=== PATIENT | female | born 1945 | race Asian ===

== ENCOUNTER → 2019-06-09 | Outpatient (REF) | payer OTHER ==
[2019-06-11 13:15] LABS: PERCENT SATURATION 9.7 % (13.2-45.0)
== END ==
LOC: M LAB REF 12:29
PROVIDERS: ATTEND Internal Medicine
DX: D64.9 Anemia, unspecified (principal)

== ENCOUNTER → 2019-06-10 | Outpatient (REF) | payer OTHER ==
[2019-06-14 00:07] LABS: ANTINUCLEAR ANTIBODIES DIRECT Negative (Negative); CYCLIC CITRULLINATED PEPTIDE 6 units (0-19)
== END ==
LOC: M LAB REF 16:53
PROVIDERS: ATTEND Internal Medicine
DX: M25.50 Pain in unspecified joint (principal)

== ENCOUNTER → 2019-09-20 | Outpatient (REF) | payer MEDICARE ==
[2019-09-20 14:35] LABS: PERCENT SATURATION 17.2 % (13.2-45.0)
== END ==
LOC: M LAB REF 12:35
PROVIDERS: ATTEND Internal Medicine
DX: D50.9 Iron deficiency anemia, unspecified (principal)

== ENCOUNTER → 2020-02-17 | Outpatient (REF) | payer MEDICARE ==
[2020-02-17 13:08] LABS: PERCENT SATURATION 23.3 % (13.2-45.0)
== END ==
LOC: M LAB REF 12:14
PROVIDERS: ATTEND Internal Medicine
DX: D50.9 Iron deficiency anemia, unspecified (principal)

== ENCOUNTER → 2020-08-03 | Outpatient (REF) | payer MEDICARE ==
[2020-08-03 13:42] LABS: PERCENT SATURATION 25.8 % (13.2-45.0)
== END ==
LOC: M LAB REF 12:34
PROVIDERS: ATTEND Internal Medicine
DX: D50.9 Iron deficiency anemia, unspecified (principal)

== ENCOUNTER 2021-02-08 10:21 | Inpatient (IN) | payer MEDICARE ==
[~2021-02-08] VITALS: Ht 149.9 cm; Wt 43.7 kg
[2021-02-08] MEDS ORDERED: AMLO1TAB24 PO (10:34)
[2021-02-08 10:51] LABS: HEMATOCRIT 25.4 % (36.0-47.0); HEMOGLOBIN 8.3 g/dl (12.0-15.5); MEAN CORPUSCULAR HEMOGLOBIN 34.2 pg (27.0-33.0); MEAN CORPUSCULAR HGB CONC 32.7 g/dl (32.0-36.5); MEAN CORPUSCULAR VOLUME 104.5 fl (80.0-96.0); PLATELET COUNT, AUTOMATED 193 10^3/uL (150-450); RED BLOOD COUNT 2.43 10^6/uL (4.00-5.40); WHITE BLOOD COUNT 2.4 10^3/uL (4.0-10.0)
--- NOTE | 2021-02-08 11:03 | REPVR ---
PROCEDURE INFORMATION: Exam: CT Head Without Contrast Exam date and time: 02/08/2021 10:38 AM Age: 75 years old Clinical indication: Weakness, facial; Additional info: CVA - nursing interventions must not delay CT TECHNIQUE: Imaging protocol: Computed tomography of the head without contrast. Radiation optimization: All CT scans at this facility use at least one of these dose optimization techniques: automated exposure control; mA and/or kV adjustment per patient size (includes targeted exams where dose is matched to clinical indication); or iterative reconstruction. Other technique: STROKE PROTOCOL was implemented. COMPARISON: No relevant prior studies available. FINDINGS: Brain: There is no acute intracranial hemorrhage or mass effect. Mild diffuse volume loss is within the range of normal for patient age. There are small vessel ischemic changes within the periventricular and subcortical white matter, but the normal wood/white matter delineation is maintained. Cerebral ventricles: No ventriculomegaly. Bones/joints: Unremarkable. No acute fracture. Paranasal sinuses: Visualized sinuses are unremarkable. No fluid levels. Mastoid air cells: Visualized mastoid air cells are well aerated. Soft tissues: Unremarkable. IMPRESSION: No acute intracranial hemorrhage or edema. ASSESSMENT: ASPECTS ([facility] Stroke Program Early CT Score) is 10. Electronically signed by: Wendie Adams On 02/08/2021 11:02:45 AM
[2021-02-08 11:04] LABS: INR 1.04; PROTHROMBIN TIME 13.8 SECONDS (12.5-14.3)
[2021-02-08 11:05] LABS: PARTIAL THROMBOPLASTIN TIME 26.1 SECONDS (24.2-38.5)
--- NOTE | 2021-02-08 11:07 | REPVR ---
PROCEDURE INFORMATION: Exam: CT Cervical Spine Without Contrast Exam date and time: 02/08/2021 10:38 AM Age: 75 years old Clinical indication: Weakness; Additional info: CVA - nursing interventions must not delay CT TECHNIQUE: Imaging protocol: Computed tomography images of the cervical spine without contrast. Radiation optimization: All CT scans at this facility use at least one of these dose optimization techniques: automated exposure control; mA and/or kV adjustment per patient size (includes targeted exams where dose is matched to clinical indication); or iterative reconstruction. COMPARISON: No relevant prior studies available. FINDINGS: Bones/joints: There is straightening of the normal cervical lordosis. No acute fracture. Normal alignment. Discs/Spinal canal/Neural foramina: No significant disc protrusion. No severe spinal canal stenosis. No significant neural foraminal narrowing. Lungs: Lung apices are normal. Soft tissues: The prevertebral soft tissues are within normal limits. There is bulky cervical lymphadenopathy, most pronounced inferiorly. This extends into the supraclavicular chains. The right thyroid lobe is surgically absent. The left thyroid lobe is heterogeneous with a dominant 9 mm hypodensity. IMPRESSION: 1. No acute fracture. 2. Bulky cervical and supraclavicular lymphadenopathy, worrisome for neoplasm such as lymphoma. Electronically signed by: Wendie Adams On 02/08/2021 11:07:44 AM
[2021-02-08 11:13] LABS: ATYPICAL LYMPH 11 % (0-5); BASOPHILS 1 % (0-1); LYMPHOCYTES 18 % (16-44); MONOCYTES 15 % (0-5); MYELOCYTES 1 % (0-0); NEUTROPHILS 47 % (28-66); PLATELET ESTIMATE NORMAL (NORMAL)
[2021-02-08 11:14] LABS: HYPOCHROMASIA 1+; TOXIC VACUOLATION 1+
--- NOTE | 2021-02-08 11:19 | REP ---
INDICATION: CVA. COMPARISON: None. TECHNIQUE: Portable FINDINGS: The technique utilized in obtaining the radiograph has magnified the cardiac silhouette and accentuated the interstitial markings. There is mild cardiomegaly accentuated by technique. There is a subtle patchy opacity in the left lower lobe. The pleural angles are sharp. The lung dinh are otherwise within normal limits for the technique utilized in obtaining the radiograph. IMPRESSION: Minimal left lower lobe opacity. PA and lateral views of the chest recommended. <Electronically signed by Paddy Young > 02/08/21 1112
[2021-02-08 11:20] LABS: BLOOD UREA NITROGEN 47 MG/DL (7-18); CALCIUM LEVEL 13.8 MG/DL (8.8-10.2); CARBON DIOXIDE LEVEL 29 MEQ/L (21-32); CHLORIDE LEVEL 102 MEQ/L (98-107); CK-MB VALUE MASS 1.3 NG/ML (<3.6); CPK CREATINE PHOSPHOKINASE 156 U/L (26-192); CREATININE FOR GFR 1.86 MG/DL (0.55-1.30); GLUCOSE, FASTING 82 MG/DL (70-100); MB/CK RELATIVE INDEX 0.83 (< OR =4); POTASSIUM SERUM 4.1 MEQ/L (3.5-5.1); SODIUM LEVEL 137 MEQ/L (136-145); TROPONIN I < 0.02 NG/ML (< 0.10)
[2021-02-08] MEDS ORDERED: NS 500 ML IV ONE ×2 (11:40→13:40)
[2021-02-08 12:01] LABS: MONO REFLEX EBV COMP NEGATIVE (NEGATIVE)
[2021-02-08 12:10] LABS: ALBUMIN 2.7 GM/DL (3.2-5.2); ALT/SGPT 19 U/L (12-78); BILIRUBIN,DIRECT 0.1 MG/DL (0.0-0.2); BILIRUBIN,TOTAL 0.6 MG/DL (0.2-1.0); PTH INTACT < 6.3 PG/ML (18.5-88.0); TOTAL PROTEIN 9.5 GM/DL (6.4-8.2)
[2021-02-08] MEDS ORDERED: CALCITONIN SALMON (MIACALCIN) 400INTERNATIONAL UNITS/2ML INJ (J0630) SQ ONE (14:20)
[2021-02-08] MEDS ORDERED: D31000TA2 PO (14:27)
[2021-02-08] MEDS ORDERED: IBAN150T6 PO (14:27)
[2021-02-08] MEDS ORDERED: FERR324T21 PO (14:28)
[2021-02-08 16:51] LABS: FERRITIN 1012 NG/ML (8-252); IRON (FE) 69 UG/DL (50-170); LDH LACTATE DEHYDROGENASE 513 U/L (84-246); TOTAL IRON BINDING CAPACITY 238 UG/DL (250-450); VITAMIN B12 LEVEL 1123 PG/ML (247-911)
[2021-02-08 16:56] LABS: HEMATOCRIT 25.4 % (36.0-47.0)
--- NOTE | 2021-02-08 18:13 | HPEPDOC ---
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 To preface, patient lives alone and ambulate without assistance at baseline. With no symptoms prior, patient has had 3-4 episodes of weakness that led to slow falls since Friday (02/05). Patient described episodes as standing up and taking a few steps, then feeling onset of weakness, prompting her to reach f or steady objects for support, then slowly lowering herself down to the floor. It would then take her 30 minutes before she can gather enough strength to get back up. This morning, patient was getting ready to visit her primary care and developed another episode of weakness, she was subsequently found down on the floor by her friend (who was driving her to the appointment), prompting friend to call EMS and transported patient to ED for evaluation. Patient denied dizziness, lightheadedness and LOC during her episodes, but reported hitting the R posterior side of her head from the episode this morning. She also denied recent fever, chills, CP, palpitation, SOB, CHUNG, N/V/D, abd pain, urinary sym ptoms, weight-loss, but noted decreased appetite (only able to finish 1/3 of her normal meal) and cough since Friday. Per medical records, patient has had a workup for iron deficiency anemia with PCP in 2018. She refused colonoscopy but had negative FOBT and FIT. She was started on iron supplement and her iron and Hgb recovered. Per patient, she was last seen by her PCP (Dr. Nielson) around 07/2020 and was told her results were good. However, she reported noticing nonpainful nodules around her left supraclavicular area since 01/18. She was seen by urgent care and was told to return to her PCP for follow up visit today (02/08). In the ED, patient was found hypercalcemic (13.8) with low PTH (<6.3), anemic (H&H 8.3 & 25.4) and leukopenic (2.4) with elevated atypical lymphocyte (11). CXR showed minimal LLL opacity. CT head was unremarkable but CT cervical spine showed bulky cervical and supraclavicular lymphadenopathy, worrisome for neoplasm such as lymphoma. Patient was treated with 2x 500mL IV bolus and 1 dose of calcitonin in the ED. PAST MEDICAL HISTORY: 1. Basal cell carcinoma of L nostril base s/p excision 08/2015 2. HTN 3. Osteoporosis 4. HLD 5. Iron deficiency anemia PAST SURGICAL HISTORY: 1. Partial Rt thyroidectomy 2. Basal cell carcinoma excision of L nostril base 08/2015 SOCIAL HISTORY: Children: 2 daughter and 1 son Tobacco use: Never smoker ETOH: Denied Illicit drug use: Denied IV drug use: Denied FAMILY HISTORY: Father: at over 70 years of age. Hx HTN Mother: at age 70 from intracranial hemorrhage from a fall. Siblings: 4 brothers all with hx of HTN. 1 brother had DM in addition. Children: Healthy ALLERGIES: Please see below. REVIEW OF SYSTEMS: CONSTITUTIONAL: Denies chills, fever, unexpected weight change, but noted weakness and loss of appetite (can only finish 1/3 of her usual meal) HEENT: Denies headaches, dizziness, vision changes, hearing changes or throat pain. CARDIOVASCULAR: Denies chest pain, palpitations, dyspnea on exertion, edema RESPIRATORY: Denies wheezing, dyspnea, hemoptysis, but noted cough with whitish sputum GASTROINTESTINAL: Denies nausea, vomiting, abdominal pain, diarrhea, constipation, hematochezia, but noted black stool due to iron supplement GENITAOURINARY: Denies dysuria, hematuria, urinary frequency, incontinence or retention. SKIN: Denies skin changes, rash, lesions, jaundice, bruising, but noted L supraclavicular lymph node enlargement MUSCULOSKELETAL: Denies muscle or joint pain but noted weakness. NEUROLOGICAL: Denies focal weakness, numbness, tingling, change in Speech. Noted drooping of R eyelid since . HEMATOLOGICAL: Denies bruising, excessive bleeding, petechiae HOME MEDICATIONS: Please see below. PHYSICAL EXAMINATION: VITAL SIGNS: See below GENERAL APPEARANCE: Revealed 75 y/o F, cachectic, alert & oriented x3, no acute distress. HEENT Exam: Normocephalic and atraumatic, PERRL, pale conjunctiva, drooping of R eyelid noted, EOMI, without sclera icteric, mucous membr. moist/pink, pharynx normal, nares patent. NECK: Supple without JVD, thyromegaly. Nontender lymph nodes noted in B/L posterior neck triangles proximal to posterior cervical chain LUNGS: Crackles noted in LLL. Otherwise diminished breath sounds but clear to auscultation bilaterally without rales, wheezing, and crackles. CARDIOVASCULAR: Regular rate and rhythm, normal S1 & S2 without gallops, murmurs, rubs ABDOMEN: Soft, non-tender, non-distended with normal bowel sounds. No masses or ecchymosis or hepatosplenomegaly. EXTREMITIES: 2+ pulses in all extremities. No clubbing, cyanosis, edema, tenderness SKIN: Normal turgor and temperature. No rash, lesion MUSCULOSKELETAL: Strength +5/5 in all extremities without tenderness. NEUROLOGICAL: Normal speech with intact sensation, cranial nerves III-XII normal. No signs of gross focal neurological deficit. PSYCHIATRIC: Normal mood and affect LABORATORY DATA: See below. IMAGIN. CT spine, cervical w/o contrast done on 02/08 reported as: IMPRESSION: 1. No acute fracture. 2. Bulky cervical and supraclavicular lymphadenopathy, worrisome for neoplasm such as lymphoma. 2. Portable CXR done on 02/08 reported as: IMPRESSION: Minimal left lower lobe opacity. PA and lateral views of the chest recommended 3. CT head without contrast IMPRESSION: No acute intracranial hemorrhage or edema. MICROBIOLOGY: Please see below. ASSESSMENT: Patient is a 75 y/o F with hx of basal cell carcinoma of L nostril base (s/p excision 08/2015), HTN, HLD, iron deficiency anemia and osteoporosis, presenting to the ED after she was found down by her friend. She has had 3-4 episodes of weakness that led her to falling since Monday 02/05 without dizziness, syncope or lightheadedness. In the ED, patient was found hypercalcemic (13.8) with low PTH (<6.3), anemic (H&H 8.3 & 25.4) and leukopenic (2.4) with elevated atypical lymphocyte (11). Trop and CPK were unremarkable, monoscreen negative. CXR showed minimal LLL opacity. CT head was unremarkable but CT cervical spine showed bulky cervical and supraclavicular lymphadenopathy, worrisome for neoplasm such as lymphoma. Patient was treated with 2x 500mL IV bolus and 1 dose of calcitonin in the ED. She was subsequently admitted for further evaluation and management of her generalized weakness. PLAN: 1. Falling 2/2 generalized weakness and fatigue - CT head and C-spine negative for acute fractures or hemorrhage - Telemetry monitory - Potential causes include hypercalcemia and possibly malignancy - Hold all home medication except amlodipine - Fall precaution 2. Hypercalcemia - Corrected Ca of 15 - On Vit D at home, given pt's hypercalcemia and normovolemic status with low PTH (<6.3), most likely 2/2 malignancy - Check PTHrP - CT chest/abd/pelvis without contrast given pt's FELIZ - Pt received 1 dose of calcitonin in the ED - Cont 150cc/hr IVF, patient already received 2x 500mL bolus in ED - Recheck serum Ca at midnight for improvement 3. Malignancy - currently under evaluation - Suspect lymphoma vs other potential sources - F/u LDH, peripheral smear - Patient has high atypical lymphocyte count of 11 - Monoscreen negative, follow EBV Ab panel 4. FELIZ - Baseline creatinine around 0.9 per medical records, creatinine 1.86 on presentation - Ensure no contrast for pt's CT imaging - Monitor I/O - Avoid nephrotoxic drugs - Urine Na and urine Cr ordered 5. Anemia - under evaluation - check iron panel - Reticulocyte count ordered - check folate and B12 - Pantoprazole PO BID for GI prophylaxis - Per medical records, Hx of iron deficiency anemia that was worked up in 2019 with negative FOBT and FIT. Patient refused colonoscopy but responded well after started on iron supplementation. - Cont iron supplementation 6. Leukopenia - Under evaluation - Patient Afebrile - No need for Abx at this time 7. HTN - Cont Amlodipine 8. Osteoporosis - Hold Vitamin D and Ibandronate 9. HLD - Patient not on any medication, managed with diet 10. Cachexia - Patient appears cachetic - BMI 18.6 - Likely 2/2 malignancy DVT Prophylaxis: Heparin 2/2 FELIZ Code status: Full code Diet: As tolerated Baseline ambulatory status: Ambulatory without assistance Disposition: Admit to PCU with telemetry monitoring. Expect hospitalization for more than 2 midnight Vital Signs Vital Signs Date Time Temp Pulse Resp B/P (MAP) Pulse Ox O2 Delivery O2 Flow Rate FiO2 5/13/21 13:15 16 143/69 (93) 02/08/21 13:09 87 97 02/08/21 10:25 97.7 Room Air Laboratory Data Labs 24H Laboratory Tests 2 02/08/21 10:34: Neutrophils (%) (Auto) , Nucleated Red Blood Cells % (auto) 0.0, Neutrophils 47, Band Neutrophils 7, Lymphocytes (Manual) 18, Monocytes (Manual) 15H, Basophils (Manual) 1, Myelocytes 1H, Atypical Lymphocytes 11H, Hypochromasia 1+, Macrocytosis 2+, Toxic Vacuolation 1+, Platelet Estimate NORMAL, Prothrombin Time 13.8, Prothromb Time International Ratio 1.04, Activated Partial Thromboplast Time 26.1, Anion Gap 6L, Glomerular Filtration Rate 28.0L, Calcium Level 13.8H, Total Bilirubin 0.6, Direct Bilirubin 0.1, Aspartate Amino Transf (AST/SGOT) 65H, Alanine Aminotransferase (ALT/SGPT) 19, Alkaline Phosphatase 61, Total Creatine Kinase 156, Creatine Kinase MB 1.3, Creatine Kinase MB Relative Index 0.83, Troponin I < 0.02, Total Protein 9.5H, Albumin 2.7L, Albumin/Globulin Ratio 0.4L, Parathyroid Hormone (Intact) < 6.3L, Monoscreen NEGATIVE CBC/BMP Laboratory Tests 02/08/21 10:34 Microbiology Microbiology 02/08/21 Respiratory Virus Panel (PCR) (NIKKI), Received Pending Home Medications Scheduled Amlodipine Besylate (Amlodipine Besylate) 5 Mg Tablet, 5 MG PO DAILY Cholecalciferol (Vitamin D3) (Vitamin D3) 1,000 Unit Tablet, 1,000 UNITS PO DAILY Ferrous Gluconate (Ferrous Gluconate) 324 Mg Tablet, 324 MG PO QPM Ibandronate Sodium (Ibandronate Sodium) 150 Mg Tablet, 150 MG PO QMONTH Allergies Coded Allergies: No Known Allergies (Unverified , 02/08/21) A-FIB/CHADSVASC A-FIB History Current/History of A-Fib/PAF?: No GME ATTESTATION GME ATTESTATION My faculty preceptor for this patient encounter was physically present during the encounter and was fully available. All aspects of the patient interview, examination, medical decision making process, and medical care plan development were reviewed and approved by the faculty preceptor. The faculty preceptor is aware and concurs with the plan as stated in the body of this note and will attest to such by his/her cosignature. KALE MCKEON OMS-3 February 08, 2021 16:27
[2021-02-08 18:17] VITALS: BP 136/72
[2021-02-08] MEDS: FERROUS GLUCONATE 324 MG TAB PO SCH (18:25)
[2021-02-08] MEDS: NS 1,000 ML IV SCH (18:25)
[2021-02-08 20:00] VITALS: BP 122/59
[2021-02-08] MEDS: PANTOPRAZOLE 40MG TAB (PROTONIX) PO SCH (21:28)
[2021-02-08 21:47] LABS: CREATININE,RANDOM URINE 45.7 MG/DL
[2021-02-09] VITALS: BP 128/60
[2021-02-09] MEDS: NS 1,000 ML IV SCH ×2 (01:01→07:39)
[2021-02-09 04:00] VITALS: BP 120/58
--- NOTE | 2021-02-09 04:50 | ECGEPIP ---
[facility] - ED Test Date: 2021-02-08 Pat Name: RAKESH SALOMON Department: Room: - Gender: Female Spearer: TINY : 1945 Requested By: KELI Whitlock Order Number: [id number] Reading MD: Lawrence Cruz Measurements Intervals [place] Rate: 92 P: 62 AK: 144 QRS: 29 QRSD: 80 T: 15 QT: 304 QTc: 375 Interpretive Statements Normal sinus rhythm NONSPECIFIC T WAVE ABNORMALITY(S) NO PRIORS FOR COMPARISON Electronically Signed on 02-09-2021 4:49:53 EDT by Lawrence Cruz
[2021-02-09 05:08] LABS: CALCIUM LEVEL 10.5 MG/DL (8.8-10.2); CREATININE FOR GFR 1.36 MG/DL (0.55-1.30); GLOMERULAR FILTRATION RATE 40.2 (>39); MAGNESIUM LEVEL 1.6 MG/DL (1.8-2.4); POTASSIUM SERUM 3.1 MEQ/L (3.5-5.1)
[2021-02-09 08:00] VITALS: BP 136/62
[2021-02-09] MEDS ORDERED: POTASSIUM CHLORIDE 10 MEQ SR TABLET PO ONE (08:15)
[2021-02-09 08:33] LABS: BASO % 0.5 % (0.0-1.0); LYMPH # 0.9 10^3/uL (1.5-5.0); LYMPH % 44.3 % (24.0-44.0); MEAN CORPUSCULAR HEMOGLOBIN 37.8 pg (27.0-33.0); MEAN CORPUSCULAR HGB CONC 34.3 g/dl (32.0-36.5); MEAN CORPUSCULAR VOLUME 110.3 fl (80.0-96.0); MONO # 0.4 10^3/uL (0.0-0.8); MONO % 22.9 % (2.0-8.0); NEUTROPHILS % 29.7 % (36.0-66.0); PLATELET COUNT, AUTOMATED 135 10^3/uL (150-450); RED BLOOD COUNT 1.85 10^6/uL (4.00-5.40); WHITE BLOOD COUNT 1.9 10^3/uL (4.0-10.0)
[2021-02-09 08:34] LABS: HEMATOCRIT 20.4 % (36.0-47.0); NEUTROPHILS # 0.6 10^3/uL (1.5-8.5)
[2021-02-09] MEDS ORDERED: ENOXAPARIN 30MG/0.3ML SYRINGE (J1650 PER 10MG) SC SCH (09:00)
--- NOTE | 2021-02-09 09:09 | REP ---
INDICATION: possible malignancy COMPARISON: None TECHNIQUE: Axial noncontrast images from the thoracic inlet to the upper abdomen with coronal and sagittal reformations. This CT examination was performed using the following dose reduction techniques: Automated exposure control, adjustment of mA and/or kv according to the patient's size, and use of iterative reconstruction technique. FINDINGS: Considerable bilateral axillary, mediastinal and hilar adenopathy is noted and suspicious for malignancy/lymphoma. Nonspecific fibroatelectatic changes primarily noted at the lingula and bilateral lung bases along with chronic interstitial changes are noted and nonspecific. Atherosclerotic changes to the thoracic aorta noted. No cardiomegaly or pericardial effusion. No effusion. No pneumothorax. Tracheobronchial tree is patent. Musculoskeletal structures are intact. IMPRESSION: Axillary and mediastinal/hilar adenopathy suspicious for lymphoma. Nonspecific fibroatelectatic changes. <Electronically signed by Sacha Bashir > 02/09/21 0905
[2021-02-09] MEDS: amLODIPine 5 MG TAB PO SCH (09:14)
[2021-02-09] MEDS: MAG SULF 1GM/100ML (MAG RUN) 1 GM in IV 1 EA IV SCH ×2 (09:15→10:59)
[2021-02-09] MEDS: PANTOPRAZOLE 40MG TAB (PROTONIX) PO SCH ×2 (09:15→21:24)
[2021-02-09] MEDS: HEPARIN SOD (PORCINE) 5000UNITS/ML 1ML VIAL/SYRINGE SQ SCH ×3 (09:15→21:25)
--- NOTE | 2021-02-09 09:38 | REP ---
INDICATION: possible malignancy COMPARISON: None TECHNIQUE: Axial noncontrast images from the lung bases to the pubic symphysis with coronal and sagittal reformations. This CT examination was performed using the following dose reduction techniques: Automated exposure control, adjustment of mA and/or kv according to the patient's size, and use of iterative reconstruction technique. FINDINGS: Mesenteric, retroperitoneal, and pelvic adenopathy along with splenomegaly is most concerning for lymphoma. Liver, pancreas, gallbladder, bilateral adrenal glands and kidneys are normal for noncontrast evaluation. The enteric system is without obstruction or acute inflammatory process. Pelvis demonstrates normal bladder and age-appropriate uterus/right adnexa. 6.2 cm left adnexal cyst identified. No ascites. No free air. Abdominal aorta without aneurysm. Musculoskeletal structures intact and without acute osseous abnormality. IMPRESSION: 1. Adenopathy and splenomegaly concerning for lymphoma unless proven otherwise. 2. 6.2 cm left adnexal cyst warrants further investigation including pelvic ultrasound. <Electronically signed by Sacha Bashir > 02/09/21 0988
[2021-02-09 10:23] LABS: TOTAL PROTEIN 8.5 GM/DL (6.4-8.2)
[2021-02-09] MEDS ORDERED: FUROSEMIDE 20MG/2ML VIAL (J1940) IV ONE (10:30)
[2021-02-09 12:00] VITALS: BP 128/59
[2021-02-09] MEDS ORDERED: SLF 3 ML SYR IV PRN (12:40)
[2021-02-09] MEDS: SLF 3 ML SYR IV SCH ×2 (14:00→21:24)
[2021-02-09 16:00] VITALS: BP 112/75
--- NOTE | 2021-02-09 16:58 | IPNPDOC ---
Date Seen The patient was seen on 02/09/21. Progress Note SUBJECTIVE: Patient was seen and examined this morning. She currently has no new complaints. She states that she continues to feel weak in her legs. There have been no adverse events reported overnight. OBJECTIVE PHYSICAL EXAMINATION: VITAL SIGNS: Please see below. GENERAL: awake, alert, and oriented. Appears in no acute distress. Lying in bed comfortably. Frail appearing. HEENT: Atraumatic, normocephalic. Eyes are nonicteric. Trachea is midline. Mucous membranes are pink and moist. Palpable occipital lymphadenopathy. No palpable cervical, axillary, or supraclavicular lymphadenopathy CARDIOVASCULAR: Normal S1, S2. Regular rate and rhythm. No clicks, rubs, or murmurs. RESPIRATORY: Clear breath sounds bilaterally with some crackles in the bases. No wheezing or rhonchi. Symmetric chest expansion ABDOMINAL: Soft, nondistended. Normoactive bowel sounds throughout EXTREMITIES: No edema. Full and equal pulses in bilateral upper and lower extremities. NEUROLOGICAL: No focal neurological deficits PSYCHOLOGICAL: Mood and affect appear appropriate LABORATORY DATA, IMAGING STUDIES, MICROBIOLOGY: Please see below. DVT prophylaxis ordered?: Heparin SQ ASSESSMENT AND PLAN: Patient is a 75 year old female with a past medical history significant for left nose basal cell carcinoma, HTN, HLD, iron deficiency anemia, and osteoporosis who presented to the [facility] ER after being found down by a friend. The patient had reported multiple episodes of weakness that lead to her falling. She had denied loss of consciousness or chest pain. On admission patient was found to be pancytopenic with elevated serum calcium levels. CT imaging obtained demonstrated generalized lymphadenopathy suspicious for lymphoma. PROBLEMS: 1. Hypercalcemia likely 2/2 malignancy -Patient presented with weakness and fatigue. Elevated calcium presentation to ED. CT imaging of the abdomen and pelvis demonstrating adenopathy and splenomegaly concerning for lymphoma. CT chest demonstrating axillary and m ediastinal/hilar lymphadenopathy -Patient started on IV fluids. She appeared slightly hypervolemic this morning. Have stopped IV fluids. -Hypercalcemia is resolving. Will give 20mg IV lasix today. She had been on Ibrandronate outpatient for osteoporosis which theoretically should have helped her hypercalcemia. At discharge could consider starting her on a thiazide diuretic -Given high clinical suspicion for lymphoma, Hem/Onc was contacted with recommendations. At this point in time they would require pathology formal diagnosis. FNA would not be helpful in case of lymphoma as it does not provide architecture. Would need core needle biopsy. Unfortunately Pathology requires send out which would not be able to be completed until Friday at earliest. Will continue to treat hypercalcemia. Once resolved can discharge with follow-up for lymph node core needle biopsy and follow-up with Oncology 2. Pancytopenia -Patient has pancytopenia. This is likely secondary to malignancy. Her Hgb w as 7.0 today. Have ordered a unit PRBCs. Blood bank had noted that the patient has some unidentified antibodies. Patient will not be able to receive blood until the antibodies are confirmed. -Will trend Hgb. No active signs of bleeding. 3. FELIZ -Patient presenting with an FELIZ. Baseline Cr of 0.9. Cr did improve with IV fluids. -will avoid nephrotoxic agents -Will continue to monitor 4. Mechanical Fall/Weakness -Weakness likely secondary to symptomatic hypercalcemia as noted above -P/OT ordered 5. HTN -Norvasc 6. Cachexia/frailty -Patient with BMI of 18.6. Poor appetite. Currently under investigation for malignancy. DISPOSITION: Pending clinical improvement. Patient lives at home alone. She has a friend at home who helps her. Her children live in [facility]. She will likely need continued rehab after discharge VS, I&O, 24H, Fishbone Vital Signs/I&O Vital Signs Date Time Temp Pulse Resp B/P (MAP) Pulse Ox O2 Delivery O2 Flow Rate FiO2 02/09/21 12:00 98.3 56 17 128/59 (82) 95 Nasal Cannula 1.0 I&O- Last 24 Hours up to 6 AM 02/09/21 06:00 Intake Total 1300 ml Output Total 450 ml Balance 850 ml Laboratory Data 24H LABS Laboratory Tests 2 02/08/21 17:12: 02/08/21 21:00: Urine Color YELLOW, Urine Appearance CLEAR, Urine pH 6.0, Urine Specific [place] 1.011, Urine Protein NEGATIVE, Urine Glucose (UA) 1+H, Urine Ketones 1+H, Urine Blood NEGATIVE, Urine Nitrite NEGATIVE, Urine Bilirubin NEGATIVE, Urine Urobilinogen 0.2, Urine Leukocyte Esterase NEGATIVE, Urine WBC (Auto) 2, Urine RBC (Auto) 2, Urine Hyaline Casts (Auto) 0, Urine Bacteria (Auto) NEGATIVE, Urine Squamous Epithelial Cells 0, Urine Sperm (Auto) , Urine Random Creatinine 45.7, Urine Random Sodium 70 02/08/21 23:41: Calcium Level 10.8#H 02/09/21 04:16: Immature Granulocyte % (Auto) 1.6, Neutrophils (%) (Auto) 29.7L, Lymphocytes (%) (Auto) 44.3H, Monocytes (%) (Auto) 22.9H, Eosinophils (%) (Auto) 1.0, Basophils (%) (Auto) 0.5, Neutrophils # (Auto) 0.6L, Lymphocytes # (Auto) 0.9L, Monocytes # (Auto) 0.4, Eosinophils # (Auto) 0.0, Basophils # (Auto) 0.0, Nucleated Red Blood Cells % (auto) 1.0H 02/09/21 04:17: Anion Gap 8, Glomerular Filtration Rate 40.2, Calcium Level 10.5H, Magnesium Level 1.6L 02/09/21 09:19: Total Protein (PEP) 8.5H 02/09/21 11:41: CBC/BMP Laboratory Tests 02/09/21 04:16 02/09/21 04:17 02/09/21 15:40 Microbiology Microbiology 02/08/21 Respiratory Virus Panel (PCR) (NIKKI) - Final, Complete TRACY PATRICIO DO February 09, 2021 16:58
[2021-02-09 18:07] LABS: EBV VIRAL CAPSID AG IgM >160.0 U/mL (0.0-35.9)
[2021-02-09] MEDS: FERROUS GLUCONATE 324 MG TAB PO SCH (18:47)
[2021-02-09 20:12] VITALS: BP 126/64
[2021-02-10] VITALS (9 sets, daily range): BP systolic 118–151; BP diastolic 61–72
[2021-02-10] MEDS: SLF 3 ML SYR IV SCH ×3 (06:22→20:48)
[2021-02-10] MEDS: HEPARIN SOD (PORCINE) 5000UNITS/ML 1ML VIAL/SYRINGE SQ SCH (06:22)
[2021-02-10 06:52] LABS: HEMATOCRIT 29.4 % (36.0-47.0); MEAN CORPUSCULAR HGB CONC 32.3 g/dl (32.0-36.5); RED BLOOD COUNT 2.97 10^6/uL (4.00-5.40); WHITE BLOOD COUNT 2.4 10^3/uL (4.0-10.0)
[2021-02-10 07:22] LABS: PLATELET COUNT, AUTOMATED 98 10^3/uL (150-450)
[2021-02-10 07:23] LABS: HEMOGLOBIN 9.5 g/dl (12.0-15.5)
[2021-02-10 08:47] LABS: CALCIUM LEVEL 9.7 MG/DL (8.8-10.2); CREATININE FOR GFR 1.32 MG/DL (0.55-1.30); GLOMERULAR FILTRATION RATE 41.7 (>39); MAGNESIUM LEVEL 1.8 MG/DL (1.8-2.4); POTASSIUM SERUM 3.1 MEQ/L (3.5-5.1)
[2021-02-10] MEDS: amLODIPine 5 MG TAB PO SCH (08:50)
[2021-02-10] MEDS: PANTOPRAZOLE 40MG TAB (PROTONIX) PO SCH ×2 (08:50→20:47)
[2021-02-10 09:25] LABS: ATYPICAL LYMPH 11 % (0-5); BASOPHILS 1 % (0-1); EOSINOPHILS 2 % (0-3); LYMPHOCYTES 21 % (16-44); METAMYELOCYTES 1 % (0-0); MONOCYTES 23 % (0-5); NEUTROPHILS 29 % (28-66); PLATELET ESTIMATE DECREASED (NORMAL); POLYCHROMASIA 1+; SMUDGE CELLS 1+
[2021-02-10] MEDS ORDERED: POTASSIUM CHLORIDE 10 MEQ SR TABLET PO ONE (10:00)
--- NOTE | 2021-02-10 11:27 | IPNPDOC ---
Date Seen The patient was seen on 02/10/21. Progress Note SUBJECTIVE: Patient was seen and examined this morning. There have been no adverse events reported overnight. Patient was transfused a unit of PRBCs yesterday. Her transfusion had been delayed due to an unidentified antibody. She has since received transfusion. This morning she states that she feels some of her strength returning. She denies any other complaints OBJECTIVE PHYSICAL EXAMINATION: VITAL SIGNS: Please see below. GENERAL: awake, alert, and oriented. Appears in no acute distress. Sitting up in bed comfortably. Frail appearing. HEENT: Atraumatic, normocephalic. Eyes are nonicteric. Trachea is midline. Mucous membranes are pink and moist. Palpable occipital lymphadenopathy. No palpable cervical, axillary, or supraclavicular lymphadenopathy CARDIOVASCULAR: Normal S1, S2. Regular rate and rhythm. No clicks, rubs, or murmurs. RESPIRATORY: Clear breath sounds bilaterally with some crackles in the bases. No wheezing or rhonchi. Symmetric chest expansion ABDOMINAL: Soft, nondistended. Normoactive bowel sounds throughout EXTREMITIES: No edema. Full and equal pulses in bilateral upper and lower extremities. NEUROLOGICAL: No focal neurological deficits PSYCHOLOGICAL: Mood and affect appear appropriate LABORATORY DATA, IMAGING STUDIES, MICROBIOLOGY: Please see below. DVT prophylaxis ordered?: Heparin SQ ASSESSMENT AND PLAN: Patient is a 75 year old female with a past medical history significant for left nose basal cell carcinoma, HTN, HLD, iron deficiency anemia , and osteoporosis who presented to the [facility] ER after being found down by a friend. The patient had reported multiple episodes of weakness that lead to her falling. She had denied loss of consciousness or chest pain. On admission patient was found to be pancytopenic with elevated serum calcium levels. CT imaging obtained demonstrated generalized lymphadenopathy suspicious for lymphoma. PROBLEMS: 1. Hypercalcemia 2/2 malignancy vs EBV -Patient presented with weakness and fatigue. Elevated calcium presentation to ED. CT imaging of the abdomen and pelvis demonstrating adenopathy and splenomegaly concerning for lymphoma. CT chest demonstrating axillary and mediastinal/hilar lymphadenopathy -Monospot negative but EBV IgM positive. Possibly active EBV infection as both EBV and lymphoma have similar findings of lymphadenopathy and splenomegaly. Although there is an association between lymphoma and EBV. EBV alone would not directly explain her hypercalcemia. -Hypercalcemia is resolving. She has received 20mg IV lasix yesterday which has improved her calcium level. She is on bisphosphonate therapy outpatient for management of her osteoporosis. -Given high clinical suspicion for lymphoma, Hem/Onc was contacted for recommendations. At this point in time they would require pathology formal diagnosis. FNA would not be helpful in case of lymphoma as it does not provide architecture. Would need core needle biopsy. Unfortunately Pathology requires send out which would not be able to be completed until Friday at earliest. Will continue to treat hypercalcemia. Once resolved can discharge with follow-up for lymph node core needle biopsy and follow-up with Oncology 2. Lymphadenopathy and Splenomegaly. -Patient has splenomegaly and hilar, mediastinal lymphadenopathy. There is no hepatomegaly. EBV IgM is positive. Possible active EBV as this can cause pancytopenia, lymphadenopathy and splenomegaly. However, likely lymphoma given her hypercalcemia. -Will check liver profile. Unlikely Hemophagocytic lymphohistiocytosis. 3. Pancytopenia -Patient has pancytopenia. This is likely secondary to malignancy. Her Hgb was 7.0 today. Have ordered a unit PRBCs. Blood bank had noted that the patient has some unidentified antibodies. Patient will not be able to receive blood un til the antibodies are confirmed. -Will trend Hgb. No active signs of bleeding. -EBV IgM positive today. Possible cause of Pancytopenia however will need to rule out lymphoma with core needle biopsy 4. FELIZ -Patient presenting with an FELIZ. Baseline Cr of 0.9. -will avoid nephrotoxic agents -Will continue to monitor 5. Mechanical Fall/Weakness -Weakness likely secondary to symptomatic hypercalcemia as noted above -P/OT ordered. Patient likely candidate for ARU -Patient lives alone. She has a friend who helps her from time to time however she is alone for most of the day 6. HTN -Norvasc 7 . Cachexia/frailty -Patient with BMI of 18.6. Poor appetite. Currently under investigation for malignancy. DISPOSITION: Pending clinical improvement. Likely discharge to ARU. Will need outpatient core needle biopsy of lymph node GME ATTESTATION My faculty preceptor for this patient encounter was physically present during the encounter and was fully available. All aspects of the patient interview, examination, medical decision making process, and medical care plan development were reviewed and approved by the faculty preceptor. The faculty preceptor is aware and concurs with the plan as stated in the body of this note and will attest to such by his/her cosignature. ATTENDING NOTE I personally examined the patient and discussed physical exam and investigations findings and treatment plan with the resident physician as detailed above. Briefly, Ms. Levin is a 75 yo W who was brought in for a fall at home and was incidentally found to have hyperCa and FELIZ, with noted diffuse lymphadenopathy and splenomegaly c/f a hematologic malignancy. Her hyperCa has much improved with hydration and diuresis, and she received calcitonin as well, FELIZ resolved and now discussions are ongoing about the best plan to obtain a core lymph node biopsy promptly before she lands in hematology clinic. She also has ongoing PT/OT and is significantly deconditioned with tentative plan to likely be discharged to the ARU. VS, I&O, 24H, Fishbone Vital Signs/I&O Vital Signs Date Time Temp Pulse Resp B/P (MAP) Pulse Ox O2 Delivery O2 Flow Rate FiO2 02/10/21 08:50 68 131/70 02/10/21 07:29 97.4 17 97 Room Air 02/09/21 16:00 1.0 I&O- Last 24 Hours up to 6 AM 02/10/21 06:00 Intake Total 1580 ml Output Total 900 ml Balance 680 ml Laboratory Data 24H LABS Laboratory Tests 2 02/09/21 11:41: 02/10/21 06:41: Neutrophils (%) (Auto) , Neutrophils # (Auto) , Nucleated Red Blood Cells % (auto) 1.2H, Neutrophils 29, Band Neutrophils 12H, Lymphocytes (Manual) 21, Monocytes (Manual) 23H, Eosinophils (Manual) 2, Basophils (Manual) 1, Metamyelocytes 1H, Atypical Lymphocytes 11H, Polychromasia 1+, Macrocytosis 2+, Smudge Cells 1+, Platelet Estimate DECREASED, Immature Platelet Fraction 1.5, Anion Gap 4L, Glomerular Filtration Rate 41.7, Calcium Level 9.7, Magnesium Level 1.8 02/10/21 07:40: Whole Blood Ionized Calcium 5.3 CBC/BMP Laboratory Tests 02/09/21 15:40 02/10/21 06:41 Microbiology Microbiology 02/08/21 Respiratory Virus Panel (PCR) (NIKKI) - Final, Complete TRACY PATRICIO DO February 10, 2021 11:27 HYACINTH BARBER MD February 10, 2021 12:25
[2021-02-10 11:50] LABS: ALBUMIN 2.3 GM/DL (3.2-5.2); BILIRUBIN,DIRECT 0.2 MG/DL (0.0-0.2); BILIRUBIN,TOTAL 0.7 MG/DL (0.2-1.0); TOTAL PROTEIN 9.1 GM/DL (6.4-8.2)
[2021-02-10] MEDS: FERROUS GLUCONATE 324 MG TAB PO SCH (18:36)
[2021-02-11] VITALS: BP 124/60
[2021-02-11 04:00] VITALS: BP 125/59
[2021-02-11 05:45] LABS: HEMATOCRIT 26.2 % (36.0-47.0); HEMOGLOBIN 8.7 g/dl (12.0-15.5); MEAN CORPUSCULAR HEMOGLOBIN 33.7 pg (27.0-33.0); MEAN CORPUSCULAR HGB CONC 33.2 g/dl (32.0-36.5); MEAN CORPUSCULAR VOLUME 101.6 fl (80.0-96.0); RED BLOOD COUNT 2.58 10^6/uL (4.00-5.40); WHITE BLOOD COUNT 1.8 10^3/uL (4.0-10.0)
[2021-02-11 05:59] LABS: CALCIUM LEVEL 9.1 MG/DL (8.8-10.2); CREATININE FOR GFR 1.24 MG/DL (0.55-1.30); GLOMERULAR FILTRATION RATE 44.8 (>39); POTASSIUM SERUM 3.6 MEQ/L (3.5-5.1)
[2021-02-11 06:08] LABS: PLATELET COUNT, AUTOMATED 63 10^3/uL (150-450)
[2021-02-11] MEDS: SLF 3 ML SYR IV SCH ×3 (06:18→22:19)
[2021-02-11 07:12] LABS: ATYPICAL LYMPH 10 % (0-5); BASOPHILS 1 % (0-1); LYMPHOCYTES 39 % (16-44); MONOCYTES 18 % (0-5); NEUTROPHILS 30 % (28-66); PLATELET ESTIMATE DECREASED (NORMAL); POLYCHROMASIA 1+
[2021-02-11 07:37] VITALS: BP 145/70
[2021-02-11] MEDS: amLODIPine 5 MG TAB PO SCH (09:27)
[2021-02-11] MEDS: PANTOPRAZOLE 40MG TAB (PROTONIX) PO SCH ×2 (09:27→20:20)
--- NOTE | 2021-02-11 11:21 | IPNPDOC ---
Text Note Date of Service The patient was seen on 02/11/21. NOTE SUBJECTIVE: -No acute issues overnight OBJECTIVE PHYSICAL EXAMINATION: VITAL SIGNS: Please see below. GENERAL: Chronically ill appearing, awake, alert, and oriented. NAD HEENT: Atraumatic, normocephalic. Eyes are nonicteric. Trachea is midline. has dried blood at site of cold sore she was picking at on L upper lip angle CARDIOVASCULAR: Normal S1, S2. Regular rate and rhythm. No clicks, rubs, or murmurs. RESPIRATORY: Clear breath sounds with bibasilar crackles at the bases. No wheezing or rhonchi. Symmetric chest expansion ABDOMINAL: Soft, nondistended. Normoactive bowel sounds throughout EXTREMITIES: No edema. Full and equal pulses in bilateral upper and lower ext remities. NEUROLOGICAL: No focal neurological deficits PSYCHOLOGICAL: Mood and affect appear appropriate LABORATORY DATA: reviewed WBC 1.8 Hgb 8.7 platelets 63 Na 141 K 3.6 Cr 1.24 ASSESSMENT: 75 year old W with a past medical history significant for left nose basal cell carcinoma, HTN, HLD, iron deficiency anemia, and osteoporosis who presented to the [facility] ER after being found down by a friend and found to be pancytopenic, hypercalcemic and CT imaging showing generalized lymphadenopathy suspicious for lymphoma pending core LN biopsy with resolved hpercalcemia and improving FELIZ. PROBLEMS: 1. Hypercalcemia 2/2 malignancy vs EBV -Patient presented with weakness and fatigue. Elevated calcium presentation to ED. CT imaging of the abdomen and pelvis demonstrating adenopathy and spleno megaly concerning for lymphoma. CT chest demonstrating axillary and mediastinal/hilar lymphadenopathy -Monospot negative but EBV IgM positive. Possibly active EBV infection as both EBV and lymphoma have similar findings of lymphadenopathy and splenomegaly. Although there is an association between lymphoma and EBV. EBV alone would not directly explain her hypercalcemia. -Hypercalcemia has resolved. She is on bisphosphonate therapy outpatient for management of her osteoporosis. -Given high clinical suspicion for lymphoma, Hem/Onc was contacted for recommendations. At this point in time they would require pathology formal diagnosis. FNA would not be helpful in case of lymphoma as it does not provide architecture. Would need core needle biopsy. Will attempt to get core LN biopsy with IR tomorrow. 2. Pancytopenia -Patient has pancytopenia. This is likely secondary to malignancy. -Hgb goal >7 -Platelets goal >50 if overtly bleeding, >20 if febrile, >10 otherwise. No pharmacotherapy for DVT ppx, to give TEDs and SCDs. -EBV IgM positive. Possible cause of Pancytopenia however will need to rule out lymphoma with core needle biopsy 4. FELIZ : improving -will avoid nephrotoxic agents -Will continue to monitor 5. Mechanical Fall/Weakness -Weakness likely secondary to symptomatic hypercalcemia as noted above -P/OT ordered. Patient being reviewed for ARU -Patient lives alone. She has a friend who helps her from time to time however she is alone for most of the day 6. HTN -Norvasc 7 . Cachexia/frailty -Patient with BMI of 18.6. Poor appetite. Currently under investigation for malignancy. -will add ensure at mealtime DISPOSITION: Medsurg. Likely discharge to ARU. Will need outpatient core needle biopsy of lymph node VS,Fishbone, I+O VS, Fishbone, I+O Laboratory Tests 02/11/21 04:58 Vital Signs Date Time Temp Pulse Resp B/P (MAP) Pulse Ox O2 Delivery O2 Flow Rate FiO2 02/11/21 07:37 98.0 74 18 145/70 (95) 96 Room Air 02/09/21 16:00 1.0 I&O- Last 24 Hours up to 6 AM 02/11/21 06:00 Intake Total 594 ml Output Total 0 ml Balance 594 ml HYACINTH BARBER MD February 11, 2021 08:38
[2021-02-11 15:33] VITALS: BP 115/56
[2021-02-11] MEDS: FERROUS GLUCONATE 324 MG TAB PO SCH (18:26)
[2021-02-11 20:00] VITALS: BP 130/68
[2021-02-11 22:08] VITALS: BP 138/65
[2021-02-12] MEDS: SLF 3 ML SYR IV SCH ×3 (05:11→21:03)
[2021-02-12 06:13] LABS: BASO % 0.8 % (0.0-1.0); EOS % 0.8 % (0.0-3.0); HEMATOCRIT 24.9 % (36.0-47.0); HEMOGLOBIN 8.6 g/dl (12.0-15.5); LYMPH # 0.6 10^3/uL (1.5-5.0); LYMPH % 47.7 % (24.0-44.0); MEAN CORPUSCULAR HEMOGLOBIN 35.5 pg (27.0-33.0); MEAN CORPUSCULAR HGB CONC 34.5 g/dl (32.0-36.5); MEAN CORPUSCULAR VOLUME 102.9 fl (80.0-96.0); MONO # 0.3 10^3/uL (0.0-0.8); MONO % 19.7 % (2.0-8.0); NEUTROPHILS % 28.7 % (36.0-66.0); RED BLOOD COUNT 2.42 10^6/uL (4.00-5.40); WHITE BLOOD COUNT 1.3 10^3/uL (4.0-10.0)
[2021-02-12 06:14] LABS: NEUTROPHILS # 0.4 10^3/uL (1.5-8.5); PLATELET COUNT, AUTOMATED 51 10^3/uL (150-450)
[2021-02-12 06:28] LABS: CALCIUM LEVEL 9.3 MG/DL (8.8-10.2); CREATININE FOR GFR 1.13 MG/DL (0.55-1.30); GLOMERULAR FILTRATION RATE 49.8 (>39); POTASSIUM SERUM 3.4 MEQ/L (3.5-5.1)
[2021-02-12 08:00] LABS: MAGNESIUM LEVEL 1.4 MG/DL (1.8-2.4)
[2021-02-12] MEDS ORDERED: POTASSIUM CHLORIDE 10 MEQ SR TABLET PO ONE (08:00)
[2021-02-12] MEDS: amLODIPine 5 MG TAB PO SCH (09:11)
[2021-02-12] MEDS: PANTOPRAZOLE 40MG TAB (PROTONIX) PO SCH ×2 (09:11→20:06)
[2021-02-12] MEDS: MAG SULF 1GM/100ML (MAG RUN) 1 GM in IV 1 EA IV SCH ×3 (11:01→14:15)
[2021-02-12] MEDS ORDERED: LIDOCAINE 1% MDV 20ML VIAL As Ordered ONE (13:12)
--- NOTE | 2021-02-12 14:06 | IPNPDOC ---
Text Note Date of Service The patient was seen on 02/12/21. NOTE S Patient had no complaint overnight. Her reported improvement in her appetite and weakness. She denied recent fever, chills, CP, SOB, N/V/D, abd pain and urinary symptoms. Her last BM was this morning and normal in consistency and color. O VITAL SIGNS: See below GENERAL APPEARANCE: Revealed 75 y/o F, frail appearing, alert & oriented x3, no acute distress. HEENT Exam: Normocephalic and atraumatic, PERRL, pale conjunctiva, drooping of R eyelid noted, EOMI, without sclera icteric, mucous membr. moist/pink, pharynx normal, nares patent. NECK: Supple without JVD, thyromegaly. Nontender lymph nodes noted in L posterior neck triangles proximal to posterior cervical chain LUNGS: Bibasilar crackles noted. Otherwise diminished breath sounds but clear to auscultation bilaterally without rales, wheezing, and crackles. CARDIOVASCULAR: Regular rate and rhythm, normal S1 & S2 without gallops, murmurs, rubs ABDOMEN: Soft, non-tender, non-distended with normal bowel sounds. No masses or ecchymosis or hepatosplenomegaly. EXTREMITIES: 2+ pulses in all extremities. No clubbing, cyanosis, edema, tenderness SKIN: Normal turgor and temperature. No rash, lesion MUSCULOSKELETAL: Strength +5/5 in all extremities without tenderness. NEUROLOGICAL: Normal speech with intact sensation. No signs of gross focal neurological deficit. PSYCHIATRIC: Normal mood and affect ASSESSMENT: 75 year old W with a past medical history significant for left nose basal cell carcinoma (s/p excision), HTN, HLD, iron deficiency anemia, and osteoporosis who presented to the [facility] ER after being found down by a friend and found to be pancytopenic, hypercalcemic and CT imaging showing generalized lymphadenopathy suspicious for lymphoma pending core LN biopsy with resolved hypercalcemia and FELIZ. EBV panel returned significant for past EBV infection, and patient currently has on-going pancytopenia warranting outpatient bone marrow biopsy. PROBLEMS: 1. Hypercalcemia 2/2 malignancy vs EBV -Patient presented with weakness and fatigue. Elevated calcium presentation to ED. CT imaging of the abdomen and pelvis demonstrating adenopathy and splenomegaly concerning for lymphoma. CT chest demonstrating axillary and mediastinal/hilar lymphadenopathy -Monospot negative but EBV capsid antigen IgM & IgG, and nuclear antigen Ab positive, suggestive of past infection vs current active infection with hx of past infection. Potential of active EBV infection as both EBV and lymphoma have similar findings of lymphadenopathy and splenomegaly. Although there is an association between lymphoma and EBV. EBV alone would not directly explain her hypercalcemia. -Hypercalcemia has resolved. She is already on bisphosphonate therapy outpatient for management of her osteoporosis. -Given high clinical suspicion for lymphoma, Hem/Onc was contacted for recommendations. At this point in time they would require pathology for formal diagnosis. FNA would not be helpful in case of lymphoma as it does not provide architecture. Would need core needle biopsy. Patient currently on waiting list for core LN biopsy with IR today. 2. Pancytopenia -Patient has pancytopenia. This is likely secondary to malignancy. -Hgb goal >7 -Platelets goal >50 if overtly bleeding, >20 if febrile, >10 otherwise. No pharmacotherapy for DVT ppx, cont with TEDs and SCDs. -EBV panel suggestive of past infection vs current active infection with hx of past infection. -However, will need to rule out lymphoma with core needle biopsy as possible cause for pancytopenia -Cont to trend, likely malignancy ,prob splen sequestration, will need outpatient marrow Bx. -Blood smear on 02/09 showed "Leukopenia with many atypical lymphocytes and left- shifted neutrophils present. Macrocytic anemia with moderate anisopoikilocy tosis. Many polychromatic RBCs present. No nRBCS. Adequate morphologically unremarkable platelets present. No blasts are identified." 3. Hypokalemia and hypomagnesemia -Repleted -likely 2/2 lasix and decreased oral intake -PO Mg supplement as medically necessary -Cont to monitor 4. FELIZ : improving -Cr of 1.13 today -will avoid nephrotoxic agents -Baseline creatinine around 0.9 per medical records -Will continue to monitor 5. Mechanical Fall/Weakness -Weakness likely secondary to symptomatic hypercalcemia as noted above -PT/OT ordered. Patient being reviewed for ARU -Patient lives alone. She has a friend who helps her from time to time however she is alone for most of the day 6. HTN -Cont Norvasc 7. Cachexia/frailty -Patient with BMI of 18.6. Poor appetite. Currently under investigation for malignancy. -taking ensure at mealtime DISPOSITION: Medsurg. Likely discharge to ARU. Currently on waiting list for inpatient core needle biopsy of lymph node, will need outpatient bone marrow biopsy for pancytopenia. VS,Fishbone, I+O VS, Fishbone, I+O Laboratory Tests 02/12/21 05:51 Vital Signs Date Time Temp Pulse Resp B/P (MAP) Pulse Ox O2 Delivery O2 Flow Rate FiO2 02/12/21 13:07 101.9 89 20 96 Room Air 02/12/21 09:11 125/73 02/09/21 16:00 1.0 I&O- Last 24 Hours up to 6 AM 02/12/21 06:00 Intake Total 340 ml Output Total 200 ml Balance 140 ml GME ATTESTATION GME ATTESTATION My faculty preceptor for this patient encounter was physically present during the encounter and was fully available. All aspects of the patient interview, examination, medical decision making process, and medical care plan development were reviewed and approved by the faculty preceptor. The faculty preceptor is aware and concurs with the plan as stated in the body of this note and will attest to such by his/her cosignature. ATTENDING NOTE I personally examined and discussed the findings and plan with the resident as detailed above. KALE MCKEON OMS-3 February 12, 2021 14:06 HYACINTH BARBER MD February 12, 2021 18:13
[2021-02-12 14:15] VITALS: BP 139/79
[2021-02-12 14:45] VITALS: BP 119/66
--- NOTE | 2021-02-12 16:57 | REP ---
INDICATION: LYMPHOMA? CORE NEEDLE BIOPSY OF LARGEST MOST ACCESSIBLE NODE. COMPARISON: None. TECHNIQUE: The procedure was performed under the direct supervision of Dr. Solo. The patient has a history of mesenteric, retroperitoneal and pelvic adenopathy seen on a previous CT scan dated 02/08/2021. The risks and benefits of the procedure were explained to the patient and informed consent was obtained. A left inguinal lymph node was localized for biopsy using ultrasound guidance. The skin was prepped and draped in a sterile fashion. 1% lidocaine was used as a local anesthetic. Using ultrasound guidance a 17/18 gauge coaxial needle biopsy system was inserted and 8 core biopsy samples were obtained and sent to the lab. The patient tolerated the procedure well and there were no immediate complications. After the appropriate amount to monitor convalescence the patient was discharged from the department. FINDINGS: None IMPRESSION: Ultrasound-guided left inguinal lymph node biopsy. <Electronically signed by Mariano Parkinson > 02/12/21 [id number] <Electronically signed by Jey Solo > 02/12/21 [id number]
[2021-02-12] MEDS: FERROUS GLUCONATE 324 MG TAB PO SCH (17:08)
[2021-02-12 22:00] VITALS: BP 127/59
[2021-02-13] MEDS: SLF 3 ML SYR IV SCH (05:05)
[2021-02-13 06:00] VITALS: BP 141/65
[2021-02-13 06:17] LABS: HEMATOCRIT 25.8 % (36.0-47.0); HEMOGLOBIN 8.9 g/dl (12.0-15.5); MEAN CORPUSCULAR HGB CONC 34.5 g/dl (32.0-36.5); MEAN CORPUSCULAR VOLUME 101.6 fl (80.0-96.0); RED BLOOD COUNT 2.54 10^6/uL (4.00-5.40); WHITE BLOOD COUNT 1.6 10^3/uL (4.0-10.0)
[2021-02-13 06:31] LABS: CALCIUM LEVEL 8.6 MG/DL (8.8-10.2); CREATININE FOR GFR 1.04 MG/DL (0.55-1.30); GLOMERULAR FILTRATION RATE 54.8 (>39); POTASSIUM SERUM 3.5 MEQ/L (3.5-5.1)
[2021-02-13 06:45] LABS: PLATELET COUNT, AUTOMATED 44 10^3/uL (150-450)
[2021-02-13 06:58] LABS: ANISOCYTOSIS 2+; ATYPICAL LYMPH 7 % (0-5); EOSINOPHILS 2 % (0-3); LYMPHOCYTES 43 % (16-44); MONOCYTES 18 % (0-5); NEUTROPHILS 30 % (28-66); PLATELET ESTIMATE MARKED DECREASE (NORMAL)
[2021-02-13] MEDS ORDERED: PILL CUTTER 1 EACH XX PRN (08:15)
[2021-02-13 08:34] VITALS: BP 141/65
[2021-02-13] MEDS: amLODIPine 5 MG TAB PO SCH (08:34)
[2021-02-13] MEDS ORDERED: FAMOTIDINE 20 MG TAB PO SCH (09:00)
[2021-02-13] MEDS ORDERED: FAMO20TA PO (10:07)
--- NOTE | 2021-02-13 11:01 | DS.PDOC ---
Discharge Summary General Date of Admission February 08, 2021 at 15:23 Date of Discharge 02/13/2021 Primary Care Physician: NICO NIELSON DO Attending Physician: NICO CAVAZOS MD Discharge Summary PROCEDURES PERFORMED DURING STAY: US guided core needle biopsy of lymph node. ADMITTING DIAGNOSES: 1. Fall 2/2 generalized weakness and fatigue 2. Hypercalcemia 3. Malignancy 4. FELIZ 5. Anemia 6. Leukopenia 7. HTN 8. Osteoporosis 9. HLD 10. Cachexia DISCHARGE DIAGNOSES: 1. Hypercalcemia 2/2 malignancy vs EBV 2. Pancytopenia 3. Hypokalemia and hypomagnesemia 4. FELIZ 5. Mechanical Fall/Weakness 6. HTN 7 . Cachexia/frailty COMPLICATIONS/CHIEF COMPLAINT: Hypercalcemia Of Malignancy. HISTORY OF PRESENT ILLNESS: Patient is a 75 y/o F with hx of basal cell carcinoma of L nostril base (s/p excision 08/2015), HTN, HLD, iron deficiency anemia and osteoporosis, presenting to the ED after she was found down by her friend on 02/08. To preface, patient lives alone and ambulate without assistance at baseline. With no symptoms prior, patient has had 3-4 episodes of weakness that led to slow falls since 02/05. Patient described episodes as standing up and taking a few steps, then feeling onset of weakness, prompting her to reach for steady objects for support, then slowly lowering herself down to the floor. It would then take her 30 minutes before she can gather enough strength to get back up. Morning of presentation, patient was getting ready to visit her primary care and developed another episode of weakness, she was subsequently found down on the floor by her friend (who was driving her to the appointment), prompting friend to call EMS and transported patient to ED for evaluation. Patient denied dizziness, lightheadedness and LOC during her episodes, but reported hitting the R posterior side of her head from the episode that morning. She also denied recent fever, chills, CP, palpitation, SOB, CHUNG, N/V/D, abd pain, urinary symptoms, weight-loss, but noted decreased appetite (only able to finish 1/3 of her normal meal) and cough since Friday. Per medical records, patient has had a workup for iron deficiency anemia with PCP in 2019. She refused colonoscopy but had negative FOBT and FIT. She was started on iron supplement and her iron and Hgb recovered. Per patient, she was last seen by her PCP (Dr. Nielson) around 07/2020 and was told her results were good. However, she reported noticing nonpainful nodules around her left supraclavicular area since 01/18. She was seen by urgent care and was told to return to her PCP for follow up visit today (02/08). In the ED, patient was found hypercalcemic (13.8) with low PTH (<6.3), anemic (H&H 8.3 & 25.4) and leukopenic (2.4) with elevated atypical lymphocyte (11). CXR showed minimal LLL opacity. CT head was unremarkable but CT cervical spine showed bulky cervical and supraclavicular lymphadenopathy, worrisome for neoplasm such as lymphoma. Patient was treated with 2x 500mL IV bolus and 1 dose of calcitonin in the ED. HOSPITAL COURSE: During her hospital stay, CT abd/pelvis showed adenopathy and splenomegaly concerning for lymphoma, and her CT chest showed axillary and mediastinal/hilar adenopathy suspicious for lymphoma. Her hypercalcemia improved after treatment with calcitonin x1 and Lasix, and her home vitamin D was held, hypercalcemia was attributed to malignancy. She was also found with FELIZ that resolved after IVF. Despite monoscreen negative, patient was found with positive EBV antibodies for capsid antigen IgG, IgM and nuclear antigen, suggestive of past infection or superimposed acute infection. Patients lymphadenopathy and splenomegaly are suspicious for malignancy and possible underlying EBV infection. Her case was discussed with Heme/Onc, who recommended patient to get lymph node Bx with outpatient follow up. She underwent US guided core needle Bx of lymph node on 02/12 and results are pending. It is recommended for patient to obtain bone marrow biopsy in outpatient setting. Her potassium and magnesium were also repleted during her stay. Patient was found pancytopenic during her hospital course but without any obvious signs of bleeding or infection. Patient was started on pantoprazole but switched to famotidine for GI prophylaxis. PT recommended pt to be discharge home with home health. On the day of discharge, patient reported overall improvement in her appetite and gait. She was able to ambulate between bed and bathroom without the weakness episodes that she presented with. Otherwise, she denied CP, SOB, N/V/D, abd pain and urinary symptoms. Discharge plan includes outpatient follow up with PCP and Heme/onc for lymph nod e biopsy results and scheduling for outpatient bone marrow biopsy for her pancytopenia. DISCHARGE MEDICATIONS: Please see below. ALLERGIES: Please see below. PHYSICAL EXAMINATION ON DISCHARGE: VITAL SIGNS: See below GENERAL APPEARANCE: Revealed 75 y/o F, frail appearing, sitting on bed side chair, alert & oriented x3, no acute distress. HEENT Exam: Normocephalic and atraumatic, PERRL, pale conjunctiva, drooping of R eyelid noted, EOMI, without sclera icteric, mucous membr. moist/pink, pharynx normal, nares patent. Scabbed cold sore at the left corner of mouth noted. NECK: Supple without JVD, thyromegaly. Nontender lymph nodes noted in B/L posterior neck triangles proximal to posterior cervical chain LUNGS: Bibasilar crackles noted. Otherwise diminished breath sounds but clear to auscultation bilaterally with full breath sounds without rales, wheezing, and crackles. CARDIOVASCULAR: Regular rate and rhythm, normal S1 & S2 without gallops, murmurs, rubs ABDOMEN: Soft, non-tender, non-distended with normal bowel sounds. No masses or ecchymosis or hepatosplenomegaly. EXTREMITIES: 2+ pulses in all extremities. No clubbing, cyanosis, edema, tenderness SKIN: Normal turgor and temperature. No rash, lesion MUSCULOSKELETAL: Strength +5/5 in all extremities without tenderness. NEUROLOGICAL: Normal speech with intact sensation. No signs of gross focal neurological deficit. PSYCHIATRIC: Normal mood and affect LABORATORY DATA: Please see below. IMAGIN. CT spine, cervical w/o contrast done on 02/08 reported as: IMPRESSION: 1. No acute fracture. 2. Bulky cervical and supraclavicular lymphadenopathy, worrisome for neoplasm such as lymphoma. 2. Portable CXR done on 02/08 reported as: IMPRESSION: Minimal left lower lobe opacity. PA and lateral views of the chest recommended 3. CT head without contrast on 02/08 reported as: IMPRESSION: No acute intracranial hemorrhage or edema. 4. CT abd/pelvis w/o contrast on 02/08 reported as: IMPRESSION: 1. Adenopathy and splenomegaly concerning for lymphoma unless proven otherwise. 2. 6.2 cm left adnexal cyst warrants further investigation including pelvic ultrasound. 5. CT Chest without contrast on 02/08 reported as: IMPRESSION: Axillary and mediastinal/hilar adenopathy suspicious for lymphoma. Nonspecific fibroatelectatic changes. PROGNOSIS: Fair ACTIVITY: As tolerated. DIET: regular DISCHARGE PLAN: Discharge home with home health DISCHARGE INSTRUCTIONS: 1. Please follow up with your primary care physician in 5-10 days 2. Please attend your referral appointment with Hem/Onc for possible lymphoma and pancytopenia ITEMS TO FOLLOWUP ON ON OUTPATIENT: 1. PTHrP level 2. SPEP results 3. Results of US guided core needle biopsy of lymph node DISCHARGE CONDITION: Stable. TIME SPENT ON DISCHARGE: Greater than 35 minutes. Vital Signs/I&Os Vital Signs Date Time Temp Pulse Resp B/P (MAP) Pulse Ox O2 Delivery O2 Flow Rate FiO2 02/13/21 08:34 82 141/65 02/13/21 06:00 98.3 18 92 Room Air 02/09/21 16:00 1.0 I&O- Last 24 Hours up to 6 AM 02/13/21 05:59 Intake Total 1110 ml Output Total 0 ml Balance 1110 ml Laboratory Data Labs 24H Laboratory Tests 2 02/13/21 05:45: Neutrophils (%) (Auto) , Neutrophils # (Auto) , Reticulocyte # (auto) 95.8H, Nucleated Red Blood Cells % (auto) 0.0, Neutrophils 30, Lymphocytes (Manual) 43, Monocytes (Manual) 18H, Eosinophils (Manual) 2, Atypical Lymphocytes 7H, Anisocytosis 2+, Macrocytosis 1+, Platelet Estimate MARKED DECREASE, Percent Reticulocyte Count 4.1H, Reticulocyte Hemoglobin Equivalent 31.3, Anion Gap 5L, Glomerular Filtration Rate 54.8, Calcium Level 8.6L, Whole Blood Ionized Calcium 4.7 CBC/BMP Laboratory Tests 02/13/21 05:45 Microbiology Microbiology 02/08/21 Respiratory Virus Panel (PCR) (NIKKI) - Final, Complete Discharge Medications Scheduled Amlodipine Besylate (Amlodipine Besylate) 5 Mg Tablet, 5 MG PO DAILY, (Reported) Cholecalciferol (Vitamin D3) (Vitamin D3) 1,000 Unit Tablet, 1,000 UNITS PO DAILY, (Reported) Famotidine (Famotidine) 20 Mg Tablet, 10 MG PO BID Ferrous Gluconate (Ferrous Gluconate) 324 Mg Tablet, 324 MG PO QPM, (Reported) Ibandronate Sodium (Ibandronate Sodium) 150 Mg Tablet, 150 MG PO QMONTH, (Reported) Allergies Coded Allergies: No Known Allergies (Unverified , 02/08/21) GME ATTESTATION GME ATTESTATION My faculty preceptor for this patient encounter was physically present during the encounter and was fully available. All aspects of the patient interview, examination, medical decision making process, and medical care plan development were reviewed and approved by the faculty preceptor. The faculty preceptor is aware and concurs with the plan as stated in the body of this note and will attest to such by his/her cosignature. ATTENDING NOTE I, Nico Cavazos, have independently examined this patient and performed my own physical exam, as well as reviewed the documentation and edited where necessary. I have discussed in detail with the resident / student the findings and plan of treatment as documented by the resident / student and edited their note. I agree with their findings and treatment plan and have edited their documentation. I will continue to follow the patient during this hospital stay. Time spent on discharge 35 minutes KALE MCKEON OMS-3 February 13, 2021 11:01 NICO CAVAZOS MD February 13, 2021 14:46
[2021-02-13 13:08] LABS: ALBUMIN 2.93 GM/DL (3.29-5.55); ALBUMIN % 34.5 % (55.8-66.1); ALPHA-1-GLOBULIN % 4.6 % (2.9-4.9); ALPHA-1-GLOBULINS 0.39 GM/DL (0.17-0.41); ALPHA-2-GLOBULINS 0.71 GM/DL (0.42-0.99); ALPHA-2-GLOBULINS % 8.4 % (7.1-11.8); BETA-1-GLOBULINS 0.28 GM/DL (0.28-0.60); BETA-1-GLOBULINS % 3.3 % (4.7-7.2); BETA-2-GLOBULINS 0.26 GM/DL (0.19-0.55); GAMMA GLOBULIN % 46.2 % (11.1-18.8); GAMMA GLOBULINS 3.93 GM/DL (0.65-1.58)
== END 2021-02-13 14:02 | disposition home health service (06) | DRG 824 ==
LOC: M ED 10:21 → EDBD 10:21 → M ED INP 15:23 → ENRESERV 16:39 → M PCU 18:04 → M MSPAV 02-11 22:05
PROVIDERS: ADMIT Internal Medicine; ATTEND Internal Medicine
PROC: 07BJ3ZX Excision of Left Inguinal Lymphatic, Percutaneous Approach, Diagnostic (ICD-10-PCS; principal; 2021-02-12 15:00)
DX: C85.90 Non-Hodgkin lymphoma, unspecified, unspecified site (principal); N17.9 Acute kidney failure, unspecified; D61.818 Other pancytopenia; R64 Cachexia; E83.52 Hypercalcemia; I10 Essential (primary) hypertension; D50.9 Iron deficiency anemia, unspecified; B27.90 Infectious mononucleosis, unspecified without complication; M81.0 Age-related osteoporosis without current pathological fracture; E87.6 Hypokalemia; E83.42 Hypomagnesemia; Z85.828 Personal history of other malignant neoplasm of skin; Z79.899 Other long term (current) drug therapy

== ENCOUNTER 2021-03-21 15:27 | Inpatient (IN) | payer MEDICARE ==
[~2021-03-21] VITALS: Ht 149.9 cm; Wt 34.7 kg
[~2021-03-21 15:27] MED LIST: AMLO1TAB24 PO; D31000TA2 PO; FAMO20TA PO; FERR324T21 PO; IBAN150T6 PO
[2021-03-21] MEDS ORDERED: NS 1,000 ML IV ONE (15:40)
[2021-03-21] MEDS ORDERED: ACETAMINOPHEN 325 MG TAB PO ONE (16:05)
[2021-03-21 16:09] LABS: BASO % 0.2 % (0.0-1.0); EOS % 0.3 % (0.0-3.0); HEMATOCRIT 32.1 % (36.0-47.0); HEMOGLOBIN 9.9 g/dl (12.0-15.5); LYMPH # 0.5 10^3/uL (1.5-5.0); LYMPH % 4.5 % (24.0-44.0); MEAN CORPUSCULAR HEMOGLOBIN 26.2 pg (27.0-33.0); MEAN CORPUSCULAR HGB CONC 30.8 g/dl (32.0-36.5); MEAN CORPUSCULAR VOLUME 84.9 fl (80.0-96.0); MONO # 0.7 10^3/uL (0.0-0.8); MONO % 6.5 % (2.0-8.0); NEUTROPHILS # 8.9 10^3/uL (1.5-8.5); NEUTROPHILS % 87.6 % (36.0-66.0); PLATELET COUNT, AUTOMATED 115 10^3/uL (150-450); RED BLOOD COUNT 3.78 10^6/uL (4.00-5.40); WHITE BLOOD COUNT 10.1 10^3/uL (4.0-10.0)
[2021-03-21 16:19] LABS: ABG BASE EXCESS 1.7 (-2.0-2.0); ABG HCO3 24.8 MEQ/L (22.0-26.0); ABG O2 SATURATION 95.6 % (95.0-99.0); ABG PARTIAL PRESSURE CO2 33.7 mmHg (35.0-45.0); ABG PARTIAL PRESSURE O2 79.1 mmHg (75.0-100.0); ABG STANDARD HCO3 25.9 MEQ/L (22.0-26.0); ABG TOTAL CO2 25.9 MEQ/L (23.0-31.0); ABG pH (ARTERIAL) 7.485 UNITS (7.350-7.450)
[2021-03-21 16:25] LABS: PROTHROMBIN TIME 13.4 SECONDS (12.5-14.3)
[2021-03-21 16:26] LABS: PARTIAL THROMBOPLASTIN TIME 30.2 SECONDS (24.2-38.5)
--- NOTE | 2021-03-21 16:27 | REP ---
INDICATION: SEPSIS/SHOCK. COMPARISON: 02/08/2021. TECHNIQUE: Single portable AP view of the chest was performed. FINDINGS: There is acute infiltrate in the right lung base. There are fibro atelectatic changes in the left lung base. The heart and mediastinum are unchanged. IMPRESSION: Infiltrate right lung base. <Electronically signed by Jey Solo > 03/21/21 0449
[2021-03-21 16:34] LABS: ALT/SGPT 9 U/L (12-78); AMYLASE 37 U/L (25-115); BILIRUBIN,DIRECT 0.3 MG/DL (0.0-0.2); BILIRUBIN,TOTAL 0.6 MG/DL (0.2-1.0); BLOOD UREA NITROGEN 21 MG/DL (7-18); CALCIUM LEVEL 10.6 MG/DL (8.8-10.2); CARBON DIOXIDE LEVEL 26 MEQ/L (21-32); CHLORIDE LEVEL 100 MEQ/L (98-107); CK-MB VALUE MASS < 1.0 NG/ML (<3.6); CPK CREATINE PHOSPHOKINASE 68 U/L (26-192); CREATININE FOR GFR 1.55 MG/DL (0.55-1.30); GLOMERULAR FILTRATION RATE 34.6 (>39); GLUCOSE, FASTING 158 MG/DL (70-100); MB/CK RELATIVE INDEX 1.47 (< OR =4); POTASSIUM SERUM 3.7 MEQ/L (3.5-5.1); SODIUM LEVEL 133 MEQ/L (136-145); TOTAL PROTEIN 7.3 GM/DL (6.4-8.2); TROPONIN I 0.02 NG/ML (< 0.10)
[2021-03-21 16:55] LABS: RSV AMPLIFICATION NEGATIVE (NEGATIVE)
[2021-03-21] MEDS ORDERED: LevoFLOXacin IV 750 MG in IV 1 EA IV ONE (17:25)
[2021-03-21] MEDS ORDERED: NS 500 ML IV ONE (17:35)
[2021-03-21] MEDS ORDERED: FAMO20TA5 PO (18:43)
[2021-03-21] MEDS ORDERED: PATIENT COMMENT (18:43)
[2021-03-21] MEDS ORDERED: MAALOX 30 ML SUSP *UDC PO PRN (19:10)
[2021-03-21] MEDS ORDERED: RAMELTEON 8 MG TAB (ROZEREM) PO PRN (19:10)
[2021-03-21] MEDS: NS 1,000 ML IV SCH (19:10)
[2021-03-21] MEDS ORDERED: BENZONATATE 100 MG CAP PO PRN (19:10)
[2021-03-21] MEDS ORDERED: MOM 30ML SUSPENSION UDC PO PRN (19:10)
--- NOTE | 2021-03-21 19:15 | HPEPDOC ---
[facility] Medical History & Physical Date of Admission Mar 21, 2021 Date of Service: Mar 21, 2021 Attending Physician: SERGIO JOHANSEN MD History and Physical CHIEF COMPLAINT: [75 y/o female presents to ED via EMS after home health aid finds her to have high fever] HISTORY OF PRESENT ILLNESS: [At the time of my exam, patient is somewhat confused and is not a particularly good historian. This is a 75 y/o female with a pmh of htn,idiopathic pulmonary fibrosis (sees Dr. Khan) who presents to the ED via EMS after home health aid found her to be confused and have a fever. Patient states that she has not been feeling well for some time - about 2 months. Patient states that she simply feels weak all over and is fatigued. Patient admits to a cough that is worse at night and is productive at times. Patient denies fevers, chills, chest pain, sob, chest tightness, wheezing, back pain, n/v/d/c. Upon workup in the ED, patient found to meet sepsis criteria with fever of 102.4, tachycardia of 126, wbc of 10.1, lactic acidosis of 2.4, and right sided infiltrate on chest x-ray. ] PAST MEDICAL HISTORY: 1. [See HPI PAST SURGICAL HISTORY: 1. [Reviewed - none SOCIAL HISTORY: Tobacco use:[Denies] ETOH: [Denies] Illicit drug use: [Denies] FAMILY HISTORY: Reviewed - none ALLERGIES: Please see below. REVIEW OF SYSTEMS: CONSTITUTIONAL: [See HPI]. HEENT: [See HPI]. CARDIOVASCULAR: [See HPI]. RESPIRATORY: [See HPI]. GASTROINTESTINAL: [See HPI]. GENITOURINARY: [Denies dysuria]. SKIN: [Denies rash]. MUSCULOSKELETAL: [Denies acute joint pain]. NEUROLOGICAL: [Denies syncope, paresthesias]. ENDOCRINE: [Denies hx of DM]. HEMATOLOGIC/LYMPHATIC: [Denies easy bruising]. HOME MEDICATIONS: Please see below. PHYSICAL EXAMINATION: VITAL SIGNS: Please see below. GENERAL APPEARANCE: [Frail appearing 75 y/o female. She does not appear to be in any respiratory distress.]. HEENT: [No mass or lesion. EOMI. No scleral icterus. Nares patent. Oral mucosa dry.]. CARDIOVASCULAR: [Tachy rate, regular rhythm. No murmurs, rubs, gallops]. LUNGS: [Decreased breath sounds of the right lung. No wheezings, rales, rhonchi.]. ABDOMEN: [Soft, nontender]. MUSCULOSKELETAL: [No joint deformity noted.]. EXTREMITIES: [No peripheral edema. No overlying skin changes. Pulses intact.]. NEUROLOGICAL: [Patient A+Ox3, however is confused and rambles at times. Patients moves all fours freely. Speech is clear.]. PSYCHIATRIC: [Mood and affect appear appropriate.]. LABORATORY DATA: See below. IMAGING: [CXR: FINDINGS: There is acute infiltrate in the right lung base. There are fibro atelectatic changes in the left lung base. The heart and mediastinum are unchanged. IMPRESSION: Infiltrate right lung base.] MICROBIOLOGY: Please see below. ASSESSMENT: [At the time of my exam, patient is somewhat confused and is not a particularly good historian. This is a 75 y/o female with a pmh of htn who presents to the ED via EMS after home health aid found her to be confused and have a fever. Upon workup in the ED, patient found to meet sepsis criteria with fever of 102.4, tachycardia of 126, wbc of 10.1, lactic acidosis of 2.4, and right sided infiltrate on chest x-ray.]. . PLAN: 1. [Sepsis 2/2 RLL pneumonia - Patient received 30mL/kg bolus, levaquin in the ED - Will switch to broad spectrum coverage vanco and zosyn for now - Vanco may be dc'ed pending mrsa pcr - Will give maintenance IVF - Tessalon perles for cough as needed - Incentive spirometry - Supplemental o2 as needed titrated to >90% - Tylenol for fevers - Admit to pcu with tele for iv abx 2. FELIZ - Patients cr today was 1.5 elevated from baseline of around one - Most likely pre-renal d/t recent poor oral intake - Fluid bolus and ivf, as stated in #1 - Renal us, urine electrolytes ordered - Will trend kidney function 3. HTN - continue amlodipine 4. GERD - continue famotidine DVT prophylaxis - lovenox ordered]. Vital Signs Vital Signs Date Time Temp Pulse Resp B/P (MAP) Pulse Ox O2 Delivery O2 Flow Rate FiO2 03/21/21 18:30 84 102/58 (73) 96 Room Air 03/21/21 17:33 98.9 03/21/21 15:42 24 Laboratory Data Labs 24H Laboratory Tests 2 03/21/21 15:54: Lactic Acid Level 2.4*H 03/21/21 15:55: Immature Granulocyte % (Auto) 0.9, Neutrophils (%) (Auto) 87.6H, Lymphocytes (%) (Auto) 4.5L, Monocytes (%) (Auto) 6.5, Eosinophils (%) (Auto) 0.3, Basophils (%) (Auto) 0.2, Neutrophils # (Auto) 8.9H, Lymphocytes # (Auto) 0.5L, Monocytes # (Auto) 0.7, Eosinophils # (Auto) 0.0, Basophils # (Auto) 0.0, Nucleated Red Blood Cells % (auto) 0.0, Prothrombin Time 13.4, Prothromb Time International Ratio 1.00, Activated Partial Thromboplast Time 30.2, Anion Gap 7L, Glomerular Filtration Rate 34.6L, Calcium Level 10.6H, Total Bilirubin 0.6, Direct Bilirubin 0.3H, Aspartate Amino Transf (AST/SGOT) 17, Alanine Aminotransferase (ALT/SGPT) 9L, Alkaline Phosphatase 83, Ammonia 32, Total Creatine Kinase 68, Creatine Kinase MB < 1.0, Creatine Kinase MB Relative Index 1.47, Troponin I 0.02, C-Reactive Protein, Quantitative 5.20H, Total Protein 7.3, Albumin 2.0L, Albumin/Globulin Ratio 0.4L, Amylase Level 37 03/21/21 16:04: Coronavirus (COVID-19)(PCR) NEGATIVE, Influenza Type A (RT-PCR) NEGATIVE, Influenza Type B (RT-PCR) NEGATIVE, Respiratory Syncytial Virus (PCR) NEGATIVE 03/21/21 16:08: Blood Gas Bicarbonate Standard 25.9, Arterial Blood pH 7.485H, Arterial Blood Partial Pressure CO2 33.7L, Arterial Blood Partial Pressure O2 79.1, Arterial Blood Total CO2 25.9, Arterial Blood HCO3 24.8, Arterial Blood Base Excess 1.7, Arterial Blood Oxygen Saturation 95.6 CBC/BMP Laboratory Tests 03/21/21 15:55 Microbiology Microbiology 03/21/21 Blood Culture, Received Pending 03/21/21 Blood Culture, Received Pending Home Medications Scheduled Amlodipine Besylate (Amlodipine Besylate) 5 Mg Tablet, 10 MG PO DAILY Azithromycin (Azithromycin) 250 Mg Tablet, 250 MG PO DAILY Cefdinir (Cefdinir) 300 Mg Capsule, 300 MG PO DAILY Cholecalciferol (Vitamin D3) (Vitamin D3) 1,000 Unit Tablet, 1,000 UNITS PO DAILY Famotidine (Famotidine) 20 Mg Tablet, 20 MG PO DAILY Ferrous Gluconate (Ferrous Gluconate) 324 Mg Tablet, 324 MG PO QPM Ibandronate Sodium (Ibandronate Sodium) 150 Mg Tablet, 150 MG PO QMONTH Scheduled PRN Albuterol Sulfate (Ventolin Hfa) 18 Gm Hfa.aer.ad, 2 PUFF INH Q4-6HP PRN for wheezing Allergies Coded Allergies: No Known Allergies (Unverified , 02/08/21) A-FIB/CHADSVASC A-FIB History Current/History of A-Fib/PAF?: No MENDOZA GAUTAM Mar 21, 2021 19:15 SERGIO JOHANSEN MD Mar 22, 2021 02:14
[2021-03-21] MEDS ORDERED: PIPERACILLIN/TAZOBACTAM SOD 4.5 GM in D5W MINI-BAG PLUS 50 ML IV SCH (19:30)
[2021-03-21] MEDS ORDERED: VANCOMYCIN HCL 1,000 MG, VIAL MATE ADAPTER 1 EACH in NS 250 ML IV SCH (19:30)
[2021-03-21] MEDS ORDERED: cefTRIAXone SOD 1 GM in D5W MINI-BAG PLUS 50 ML IV SCH (20:00)
[2021-03-21] MEDS: PIPERACILLIN/TAZOBACTAM SOD 4.5 GM in D5W MINI-BAG PLUS 50 ML IV SCH (20:25)
[2021-03-21] MEDS ORDERED: VANCOMYCIN HCL 750 MG, VIAL MATE ADAPTER 1 EACH in NS 250 ML IV ONE (21:00)
[2021-03-21] MEDS: DOCUSATE SODIUM 100MG CAPSULE PO SCH ×2 (21:00→22:40)
[2021-03-21 22:22] VITALS: BP 148/71
[2021-03-21] MEDS: ACETAMINOPHEN TAB 650MG DOSE (2X325MG) PO PRN (22:59)
[2021-03-21] MEDS: FERROUS GLUCONATE 324 MG TAB PO SCH (23:00)
[2021-03-22] VITALS: BP 98/52
[2021-03-22 01:31] LABS: AMORPHOUS SEDIMENT SMALL (NEGATIVE); APPEARANCE, URINE CLOUDY (CLEAR); BACTERIA, URINE AUTO 1+ (NEGATIVE); BILIRUBIN, URINE AUTO NEGATIVE (NEGATIVE); BLOOD, URINE BLOOD 1+ (NEGATIVE); COLOR, URINE YELLOW (YELLOW); GLUCOSE, URINE (UA) AUTO 1+ mg/dL (NEGATIVE); KETONE, URINE AUTO NEGATIVE (NEGATIVE); LEUKOCYTE ESTERASE, URINE AUTO NEGATIVE (NEGATIVE); MUCUS, URINE SMALL (NEGATIVE); NITRITE, URINE AUTO NEGATIVE (NEGATIVE); PROTEIN, URINE AUTO 1+ mg/dL (NEGATIVE); RBC, URINE AUTO 4 /HPF (0-3); SPECIFIC GRAVITY URINE AUTO 1.017 (1.002-1.035); SQUAMOUS EPITHELIAL CELL UR AU 0 /HPF (0-6); UROBILINOGEN, URINE AUTO 0.2 mg/dL (0.0-2.0); WBC, URINE AUTO 6 /HPF (0-3)
[2021-03-22] MEDS ORDERED: NS 1,000 ML IV ONE ×2 (02:15→12:15)
[2021-03-22 04:00] VITALS: BP 110/55
[2021-03-22] MEDS: PIPERACILLIN/TAZOBACTAM SOD 4.5 GM in D5W MINI-BAG PLUS 50 ML IV SCH (04:17)
[2021-03-22] MEDS: ACETAMINOPHEN TAB 650MG DOSE (2X325MG) PO PRN (04:17)
[2021-03-22 05:59] LABS: HEMATOCRIT 31.1 % (36.0-47.0); HEMOGLOBIN 9.7 g/dl (12.0-15.5); MEAN CORPUSCULAR HEMOGLOBIN 26.2 pg (27.0-33.0); MEAN CORPUSCULAR HGB CONC 31.2 g/dl (32.0-36.5); MEAN CORPUSCULAR VOLUME 84.1 fl (80.0-96.0); PLATELET COUNT, AUTOMATED 117 10^3/uL (150-450); WHITE BLOOD COUNT 7.3 10^3/uL (4.0-10.0)
[2021-03-22 06:28] LABS: CALCIUM LEVEL 9.3 MG/DL (8.8-10.2); CREATININE FOR GFR 1.49 MG/DL (0.55-1.30); GLOMERULAR FILTRATION RATE 36.2 (>39); POTASSIUM SERUM 3.8 MEQ/L (3.5-5.1)
--- NOTE | 2021-03-22 07:22 | ECGEPIP ---
[facility] - ED Test Date: 2021-03-21 Pat Name: RAKESH SALOMON Department: Room: - Gender: Female [employer]: SHAQ : 1945 Requested By: KELI SUAREZ Order Number: [id number] Reading MD: Lawrence Cruz Measurements Intervals [place] Rate: 132 P: 25 GA: 132 QRS: 23 QRSD: 62 T: 30 QT: 256 QTc: 379 Interpretive Statements Sinus tachycardia POOR R WAVE PROGRESSION NSTTW ABNORMALITY(S) RATE CHANGE COMPARED TO 02/08/21 Electronically Signed on 03-22-2021 7:22:31 EDT by Lawrence Cruz
[2021-03-22 08:00] VITALS: BP 112/57
[2021-03-22] MEDS: FAMOTIDINE 20 MG TAB PO SCH (08:14)
[2021-03-22] MEDS: ENOXAPARIN 30MG/0.3ML SYRINGE (J1650 PER 10MG) SC SCH (08:14)
[2021-03-22] MEDS: DOCUSATE SODIUM 100MG CAPSULE PO SCH ×3 (08:15→20:51)
[2021-03-22] MEDS: amLODIPine 5 MG TAB PO SCH (08:15)
--- NOTE | 2021-03-22 08:23 | REP ---
INDICATION: davy. COMPARISON: Comparison CT study February 08, 2021.. TECHNIQUE: The urinary tract sonography. FINDINGS: Scanning at the level of the urinary bladder shows no abnormality. Renal cortical echogenicity pattern is increased bilaterally consistent with medical renal disease. There is no evidence of hydronephrosis or mass on either side. There is a 0.7 cm cyst in the right mid kidney. The right slightly smaller than the left. Kidney appears. . The right kidney measures 8.7 x 4.4 x 3.2 cm. Left renal dimensions are 10.2 x 5.0 x 3.9 cm. IMPRESSION: Increased renal cortical echogenicity pattern consistent with medical renal disease. Sub cm cyst right kidney. No evidence of hydronephrosis, calculus, or mass.. <Electronically signed by Andrés Oswald > 03/22/21 0825
[2021-03-22] MEDS: NS 1,000 ML IV SCH ×3 (08:30→23:57)
[2021-03-22 10:09] LABS: VANCOMYCIN RANDOM 13.8 UG/ML
[2021-03-22] MEDS ORDERED: ALBUTEROL 90 MCG/ACT 8GM HFA INHALER INH PRN (11:45)
[2021-03-22 12:00] VITALS: BP 84/50
[2021-03-22] MEDS ORDERED: predniSONE 20 MG TAB PO ONE (12:00)
[2021-03-22] MEDS: IPRATROPIUM 0.5MG/ALBUTEROL 2.5MG INH SOL UD 3ML (DUONEB) INH SCH ×4 (12:15→23:38)
--- NOTE | 2021-03-22 12:28 | IPNPDOC ---
Text Note Date of Service The patient was seen on 03/22/21. NOTE Subjective: No any acute events overnight. Patient complains of generalized fatigue and intermittent cough with whitish sputum. Objective: GENERAL APPEARANCE: NAD HEENT: no scleral icterus, no JVD, EOMI CARDIOVASCULAR: S1S2 LUNGS: Diminished lung sounds bilaterally ABDOMEN: soft & not tender w palpitation MUSCULOSKELETAL: no cyanosis, no swelling INTEGUMENT: no generalized pallor NEUROLOGICAL: cranial nerve function from 2-12 intact intact, follows commands, speech not dysarthric Assessment and plan Patient is 75 years old female with past history of hypertension, idiopathic pulmonary fibrosis presented to the hospital with increased shortness of breath and generalized fatigue. Patient was found to have right-sided infiltrate on chest x-ray, fever, tachycardia and elevated lactic acidosis Sepsis Most likely secondary to right-sided community-acquired pneumonia Patient was on maintenance fluid I will give her bolus and start IV fluids according to sepsis protocol Await sputum culture, blood culture Lactic acidosis normalized Leukocytosis resolved I changed to vancomycin and Zosyn to ceftriaxone and azithromycin Right-sided community acquired pneumonia Continue antibiotic therapy Incentive spirometry Prednisone 40 mg daily for 5 days Hypotension Secondary to sepsis, IV fluid FELIZ Secondary to intravascular depletion secondary to sepsis Improved Continue to monitor, continue IV hydration Hypertension Amlodipine with parameters, currently on hold GERD Continue famotidine Pulmonary fibrosis Follow-up with paper tube machine operator in the outpatient settings Montez BEAR, I+O VSMontez I+O Laboratory Tests 03/21/21 15:55 03/22/21 05:37 Vital Signs Date Time Temp Pulse Resp B/P (MAP) Pulse Ox O2 Delivery O2 Flow Rate FiO2 03/22/21 08:15 112/57 03/22/21 08:00 98.4 104 20 90 Room Air I&O- Last 24 Hours up to 6 AM 03/22/21 06:00 Intake Total 2410 ml Output Total 100 ml Balance 2310 ml ELENA PARHAM DO Mar 22, 2021 12:28
[2021-03-22] MEDS: cefTRIAXone SOD 2 GM in D5W MINI-BAG PLUS 50 ML IV SCH (13:39)
[2021-03-22] MEDS: AZITHROMYCIN INJ 500 MG, VIAL MATE ADAPTER 1 EACH in NS 250 ML IV SCH (14:28)
[2021-03-22 16:00] VITALS: BP 124/62
[2021-03-22] MEDS ORDERED: LevoFLOXacin IV 750 MG in IV 1 EA IV SCH (19:00)
[2021-03-22 20:00] VITALS: BP 116/55
[2021-03-22] MEDS: FERROUS GLUCONATE 324 MG TAB PO SCH (20:49)
[2021-03-22] MEDS ORDERED: VANCOMYCIN INTERMITTENT/PULSE DOSING BY CLINICAL PHARMACIST PER DOSING PROTOCOL XX SCH (21:00)
[2021-03-23] VITALS: BP 127/67
[2021-03-23] MEDS: IPRATROPIUM 0.5MG/ALBUTEROL 2.5MG INH SOL UD 3ML (DUONEB) INH SCH ×5 (03:12→20:11)
[2021-03-23 04:00] VITALS: BP 129/61
[2021-03-23 05:48] LABS: HEMATOCRIT 31.8 % (36.0-47.0); HEMOGLOBIN 9.7 g/dl (12.0-15.5); MEAN CORPUSCULAR HGB CONC 30.5 g/dl (32.0-36.5); MEAN CORPUSCULAR VOLUME 85.3 fl (80.0-96.0); PLATELET COUNT, AUTOMATED 196 10^3/uL (150-450); RED BLOOD COUNT 3.73 10^6/uL (4.00-5.40); WHITE BLOOD COUNT 19.2 10^3/uL (4.0-10.0)
[2021-03-23 06:07] LABS: CALCIUM LEVEL 8.6 MG/DL (8.8-10.2); CREATININE FOR GFR 1.57 MG/DL (0.55-1.30); GLOMERULAR FILTRATION RATE 34.1 (>39); POTASSIUM SERUM 3.1 MEQ/L (3.5-5.1)
[2021-03-23] MEDS: NS 1,000 ML IV SCH (07:32)
[2021-03-23 08:00] VITALS: BP 129/58
[2021-03-23] MEDS ORDERED: POTASSIUM CHLORIDE 10 MEQ SR TABLET PO ONE (08:00)
[2021-03-23] MEDS: predniSONE 20 MG TAB PO SCH (08:39)
[2021-03-23] MEDS: amLODIPine 5 MG TAB PO SCH (08:39)
[2021-03-23] MEDS: ENOXAPARIN 30MG/0.3ML SYRINGE (J1650 PER 10MG) SC SCH (08:40)
[2021-03-23] MEDS: DOCUSATE SODIUM 100MG CAPSULE PO SCH ×2 (08:40→20:36)
--- NOTE | 2021-03-23 09:52 | REP ---
INDICATION: PNA. COMPARISON: Comparison CT study chest dated 08 Feb 2021.. TECHNIQUE: Helical scanning is acquired. 3 mm axial images are generated. Coronal and sagittal MPR and coronal MIP images are generated. FINDINGS: Preliminary digital cleaning professional radiograph demonstrates right pleural effusion. Stat axial CT images confirm a moderate to large right pleural effusion and a small left pleural effusion. These are new findings from the February 08, 2021 study. There is an anasarca picture with diffuse subcutaneous edema as well. No significant pericardial effusion is seen. The heart is enlarged however. Bilateral axillary, supraclavicular, mediastinal, and upper abdominal lymphadenopathy is seen. Retrocrural adenopathy is seen. The spleen does not appear to be enlarged measuring 10.5 cm in greatest diameter. The lung parenchymal windows demonstrate bibasilar atelectatic changes right lower lobe most prominently affected adjacent to the right effusion. Pneumonia no definite infiltrate. No endobronchial disease. Bone window settings shows no bony destructive lesion. IMPRESSION: Bilateral pleural effusions have developed since the February 08, 2021 study moderate to large on the right and small on the left. Bulky supraclavicular, axillary, mediastinal, retrocrural and, and upper abdominal lymphadenopathy is visible. There is diffuse subcutaneous edema question anasarca versus low protein state. Cardiomegaly.. <Electronically signed by Andrés Oswald > 03/23/21 [id number]
--- NOTE | 2021-03-23 11:35 | IPNPDOC ---
Text Note Date of Service The patient was seen on 03/23/21. NOTE Subjective: Patient stated that she feels better today, breathing improved. Objective: GENERAL APPEARANCE: NAD HEENT: no scleral icterus, no JVD, EOMI CARDIOVASCULAR: S1S2, tachycardic at rate 102 LUNGS: Diminished lung sounds bilaterally, more on the right side ABDOMEN: soft & not tender w palpitation MUSCULOSKELETAL: no cyanosis, no swelling INTEGUMENT: no generalized pallor NEUROLOGICAL: cranial nerve function from 2-12 intact intact, follows commands, speech not dysarthric Assessment and plan Patient is 75 years old female with past history of hypertension, idiopathic pulmonary fibrosis presented to the hospital with increased shortness of breath and generalized fatigue. Patient was found to have right-sided infiltrate on chest x-ray, fever, tachycardia and elevated lactic acidosis Sepsis Most likely secondary to right-sided community-acquired pneumonia versus infected pleural effusion Patient received IV fluids according to sepsis protocol Await sputum culture One set of blood culture positive for gram-positive cocci. MRSA negative. I will repeat blood culture Leukocytosis worsening today, could be attributed to prednisone therapy. Patient clinically looks better today, normotensive I changed vancomycin and Zosyn to ceftriaxone and azithromycin day 2. CT chest was done today and showed Bilateral pleural effusions have developed since the February 08, 2021 study moderate to large on the right and small on the left. Bulky supraclavicular, axillary, mediastinal, retrocrural and, and upper abdominal lymphadenopathy is visible. I will order CT abdomen/pelvis. I ordered thoracocentesis Procalcitonin significantly elevated to 42 Right-sided community acquired pneumonia Continue antibiotic therapy Incentive spirometry Prednisone 40 mg daily for 5 days Right pleural effusion Differential diagnosis includes Infection versus malignancy versus CHF. In previous hospitalization in January 2021 it was concern for lymphoma given Bulky cervical and supraclavicular lymphadenopathy and hypercalcemia. Patient was recommended to have repeated excisional lymph note biopsy in the outpatient settings. 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, suggestive of an abnormal proliferative process We'll check BNP Will proceed with thoracocentesis on Friday, patient already received a dose of Lovenox Hypotension Secondary to sepsis Resolved FELIZ Secondary to intravascular depletion secondary to sepsis Stable Continue to monitor Hypertension Amlodipine with parameters GERD Continue famotidine Pulmonary fibrosis Follow-up with tobacco drying machine operator in the outpatient settings Hypokalemia Replaced VS,Fishbone, I+O VS, Fishbone, I+O Laboratory Tests 03/23/21 05:22 Vital Signs Date Time Temp Pulse Resp B/P (MAP) Pulse Ox O2 Delivery O2 Flow Rate FiO2 03/23/21 08:39 105 129/58 03/23/21 08:00 98.3 20 100 Room Air I&O- Last 24 Hours up to 6 AM 03/23/21 06:00 Intake Total 1282.5 ml Output Total 350 ml Balance 932.5 ml ELENA PARHAM DO Mar 23, 2021 11:35
[2021-03-23 12:00] VITALS: BP 114/53
--- NOTE | 2021-03-23 12:28 | REP ---
INDICATION: lymphoma. COMPARISON: 02/08/2021 also without contrast TECHNIQUE: Standard helical technique without intravenous or oral bowel preparatory contrast administration. This causes exam limitations. FINDINGS: There is a small to moderate left and moderate to large right partially imaged pleural effusion. These have developed since the last exam. Patchy lung base densities are seen bilaterally with some air bronchograms. Ascites has developed since the last exam. There is pericholecystic edema. The liver and spleen are unchanged. There is splenomegaly. There is no significant change in appearance of the pancreas, adrenal glands, or kidneys. There is no significant change in appearance of the abdominal aorta. There is para-aortic adenopathy. There is mesenteric adenopathy. This has a stable appearance. There is pelvic sidewall and inguinal adenopathy. This has a stable appearance. There is a large oval-shaped cyst in the left hemipelvis. This has a stable appearance. There is no evidence of free air. Bone window technique throughout the exam shows no significant change in appearance of the osseous structures. IMPRESSION: 1. Bilateral pleural effusions and likely bilateral subsegmental atelectatic changes, however, early pneumonia cannot be ruled out. 2. Ascites has developed since the last exam. 3. Splenomegaly and extensive adenopathy, as described above, again noted. 4. Unchanged large oval-shaped left hemipelvic fluid collection. 5. Other findings as described above. <Electronically signed by Paddy Young > 03/23/21 [id number]
[2021-03-23] MEDS: FUROSEMIDE 40MG/4ML VIAL (J1940) IV SCH ×2 (12:34→20:35)
[2021-03-23] MEDS: cefTRIAXone SOD 2 GM in D5W MINI-BAG PLUS 50 ML IV SCH (12:35)
[2021-03-23] MEDS: AZITHROMYCIN INJ 500 MG, VIAL MATE ADAPTER 1 EACH in NS 250 ML IV SCH (13:49)
[2021-03-23 16:00] VITALS: BP 124/61
[2021-03-23 20:00] VITALS: BP 139/65
[2021-03-23] MEDS: FERROUS GLUCONATE 324 MG TAB PO SCH (20:36)
[2021-03-24] VITALS: BP 142/66
[2021-03-24] MEDS: IPRATROPIUM 0.5MG/ALBUTEROL 2.5MG INH SOL UD 3ML (DUONEB) INH SCH ×7 (00:08→23:06)
[2021-03-24 04:00] VITALS: BP 135/67
[2021-03-24] MEDS: FUROSEMIDE 40MG/4ML VIAL (J1940) IV SCH ×3 (04:34→20:18)
[2021-03-24 05:51] LABS: HEMOGLOBIN 10.1 g/dl (12.0-15.5); MEAN CORPUSCULAR HGB CONC 30.6 g/dl (32.0-36.5); MEAN CORPUSCULAR VOLUME 84.8 fl (80.0-96.0); PLATELET COUNT, AUTOMATED 188 10^3/uL (150-450); RED BLOOD COUNT 3.89 10^6/uL (4.00-5.40); WHITE BLOOD COUNT 13.5 10^3/uL (4.0-10.0)
[2021-03-24 06:20] LABS: CALCIUM LEVEL 9.7 MG/DL (8.8-10.2); CREATININE FOR GFR 1.36 MG/DL (0.55-1.30); GLOMERULAR FILTRATION RATE 40.2 (>39); POTASSIUM SERUM 3.3 MEQ/L (3.5-5.1)
[2021-03-24 07:35] VITALS: BP 147/79
[2021-03-24] MEDS ORDERED: POTASSIUM CHLORIDE 10 MEQ SR TABLET PO ONE (09:00)
[2021-03-24] MEDS: DOCUSATE SODIUM 100MG CAPSULE PO SCH ×2 (09:00→20:04)
[2021-03-24] MEDS: FAMOTIDINE 20 MG TAB PO SCH (09:16)
[2021-03-24] MEDS: predniSONE 20 MG TAB PO SCH (09:16)
[2021-03-24] MEDS: ENOXAPARIN 30MG/0.3ML SYRINGE (J1650 PER 10MG) SC SCH (09:17)
[2021-03-24] MEDS: amLODIPine 5 MG TAB PO SCH (09:17)
--- NOTE | 2021-03-24 11:08 | IPNPDOC ---
Text Note Date of Service The patient was seen on 03/24/21. NOTE Subjective: Patient stated that she continues to feel better. No fever overnight Objective: GENERAL APPEARANCE: NAD HEENT: no scleral icterus, plus JVD, EOMI CARDIOVASCULAR: S1S2, tachycardic at rate 105 LUNGS: Diminished lung sounds bilaterally, more on the right side ABDOMEN: soft & not tender w palpitation MUSCULOSKELETAL: no cyanosis, no swelling INTEGUMENT: no generalized pallor NEUROLOGICAL: cranial nerve function from 2-12 intact intact, follows commands, speech not dysarthric Assessment and plan Patient is 75 years old female with past history of hypertension, idiopathic pulmonary fibrosis presented to the hospital with increased shortness of breath and generalized fatigue. Patient was found to have right-sided infiltrate on chest x-ray, fever, tachycardia and elevated lactic acidosis Sepsis Most likely secondary to right-sided community-acquired pneumonia versus infected pleural effusion Patient received IV fluids according to sepsis protocol Await sputum culture One set of blood culture positive for gram-positive cocci. Second set of blood culture negative MRSA negative. Await the repeated blood culture I changed vancomycin and Zosyn to ceftriaxone and azithromycin day 3. CT chest was done 03/23/21 and showed Bilateral pleural effusions have developed since the February 08, 2021 study moderate to large on the right and small on the left. Bulky supraclavicular, axillary, mediastinal, retrocrural and, and upper abdominal lymphadenopathy is visible. CT abdomen/pelvis showed Bilateral pleural effusions and likely bilateral subsegmental atelectatic changes, however, early pneumonia cannot be ruled out. Ascites has developed since the last exam. Splenomegaly and extensive adenopathy I ordered thoracocentesis. Most likely will be on Friday Procalcitonin significantly elevated to 42 Right-sided community acquired pneumonia Continue antibiotic therapy Incentive spirometry Prednisone 40 mg daily for 5 days Leukocytosis improved Right pleural effusion Differential diagnosis includes Infection versus malignancy versus CHF. In previous hospitalization in January 2021 it was concern for lymphoma given Bulky cervical and supraclavicular lymphadenopathy and hypercalcemia. Patient was recommended to have repeated excisional lymph note biopsy in the outpatient settings. 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 I will discuss with oncologist excisional lymph node biopsy after initial stabilization. BNP significantly elevated of 5077 Will proceed with thoracocentesis on Friday Acute diastolic CHF BNP elevated to 5077 Will proceed with echo I's and O's Lasix IV Hypotension Secondary to sepsis Resolved FELIZ Secondary to intravascular depletion secondary to sepsis Improved Continue to monitor Hypertension Amlodipine with parameters GERD Continue famotidine Pulmonary fibrosis Follow-up with claims configuration analyst in the outpatient settings Hypokalemia Replaced VS,Fishbone, I+O VS, Fishbone, I+O Laboratory Tests 03/24/21 05:31 Vital Signs Date Time Temp Pulse Resp B/P (MAP) Pulse Ox O2 Delivery O2 Flow Rate FiO2 03/24/21 09:17 105 147/79 03/24/21 07:35 99.5 18 93 Room Air I&O- Last 24 Hours up to 6 AM 03/24/21 06:00 Intake Total 2205 ml Output Total 1725 ml Balance 480 ml ELENA PARHAM Mar 24, 2021 11:08
[2021-03-24 11:25] VITALS: BP 131/62
[2021-03-24] MEDS: cefTRIAXone SOD 2 GM in D5W MINI-BAG PLUS 50 ML IV SCH (12:23)
[2021-03-24] MEDS: AZITHROMYCIN INJ 500 MG, VIAL MATE ADAPTER 1 EACH in NS 250 ML IV SCH (13:59)
[2021-03-24 20:00] VITALS: BP 145/70
[2021-03-24] MEDS: FERROUS GLUCONATE 324 MG TAB PO SCH (20:16)
[2021-03-25] VITALS: BP 146/69
[2021-03-25 04:00] VITALS: BP 155/78
[2021-03-25] MEDS: IPRATROPIUM 0.5MG/ALBUTEROL 2.5MG INH SOL UD 3ML (DUONEB) INH SCH ×5 (04:00→20:00)
[2021-03-25] MEDS: FUROSEMIDE 40MG/4ML VIAL (J1940) IV SCH ×3 (04:15→20:38)
[2021-03-25 05:49] LABS: HEMATOCRIT 30.1 % (36.0-47.0); HEMOGLOBIN 9.4 g/dl (12.0-15.5); MEAN CORPUSCULAR HEMOGLOBIN 26.1 pg (27.0-33.0); MEAN CORPUSCULAR HGB CONC 31.2 g/dl (32.0-36.5); MEAN CORPUSCULAR VOLUME 83.6 fl (80.0-96.0); PLATELET COUNT, AUTOMATED 123 10^3/uL (150-450); WHITE BLOOD COUNT 7.8 10^3/uL (4.0-10.0)
[2021-03-25 06:13] LABS: CREATININE FOR GFR 1.28 MG/DL (0.55-1.30); GLOMERULAR FILTRATION RATE 43.2 (>39); POTASSIUM SERUM 2.9 MEQ/L (3.5-5.1)
[2021-03-25] MEDS ORDERED: POTASSIUM CHLORIDE 10 MEQ SR TABLET PO ONE (06:30)
[2021-03-25] MEDS: KCL 10MEQ/100ML SWI (KRUN) 10 MEQ in IV 1 EA IV SCH ×4 (06:59→10:41)
[2021-03-25 07:23] VITALS: BP 167/77
[2021-03-25] MEDS: DOCUSATE SODIUM 100MG CAPSULE PO SCH ×2 (08:22→20:38)
[2021-03-25] MEDS: ENOXAPARIN 30MG/0.3ML SYRINGE (J1650 PER 10MG) SC SCH ×2 (08:23→11:35)
[2021-03-25] MEDS: predniSONE 20 MG TAB PO SCH (08:23)
--- NOTE | 2021-03-25 10:18 | IPNPDOC ---
Text Note Date of Service The patient was seen on 03/25/21. NOTE Subjective: Patient stated that her breathing better. No fever overnight Objective: GENERAL APPEARANCE: NAD HEENT: no scleral icterus, plus JVD, EOMI CARDIOVASCULAR: S1S2 LUNGS: Diminished lung sounds bilaterally, more on the right side ABDOMEN: soft & not tender w palpitation MUSCULOSKELETAL: no cyanosis, no swelling INTEGUMENT: no generalized pallor NEUROLOGICAL: cranial nerve function from 2-12 intact intact, follows commands, speech not dysarthric Assessment and plan Patient is 75 years old female with past history of hypertension, idiopathic pulmonary fibrosis presented to the hospital with increased shortness of breath and generalized fatigue. Patient was found to have right-sided infiltrate on chest x-ray, fever, tachycardia and elevated lactic acidosis Sepsis Most likely secondary to right-sided community-acquired pneumonia versus infected pleural effusion Patient received IV fluids according to sepsis protocol Await sputum culture One set of blood culture positive for gram-positive cocci. Second set of blood culture negative MRSA negative. Await the repeated blood culture I changed vancomycin and Zosyn to ceftriaxone and azithromycin day 4. CT chest was done 03/23/21 and showed Bilateral pleural effusions have developed since the February 08, 2021 study moderate to large on the right and small on the left. Bulky supraclavicular, axillary, mediastinal, retrocrural and, and upper abdominal lymphadenopathy is visible. CT abdomen/pelvis showed Bilateral pleural effusions and likely bilateral subsegmental atelectatic changes, however, early pneumonia cannot be ruled out. Ascites has developed since the last exam. Splenomegaly and extensive adenopathy I ordered thoracocentesis. Most likely will be on Friday Procalcitonin significantly elevated to 42 Right-sided community acquired pneumonia Continue antibiotic therapy Incentive spirometry Prednisone 40 mg daily for 5 days Leukocytosis resolved Right pleural effusion Differential diagnosis includes Infection versus malignancy versus CHF. In previous hospitalization in January 2021 it was concern for lymphoma given Bulky cervical and supraclavicular lymphadenopathy and hypercalcemia. Patient was recommended to have repeated excisional lymph note biopsy in the outpatient settings. 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 I will discuss with oncologist excisional lymph node biopsy after initial stabilization. BNP significantly elevated of 5077 Await echo Will proceed with thoracocentesis on Friday Acute diastolic CHF BNP elevated to 5077 echo pending I's and O's Lasix IV Hypotension Secondary to sepsis Resolved FELIZ Secondary to intravascular depletion secondary to sepsis Improved Continue to monitor Hypertension Amlodipine with parameters GERD Continue famotidine Pulmonary fibrosis Follow-up with jar capper in the outpatient settings Hypokalemia Replaced VS,Fishbone, I+O VS, Fishbone, I+O Laboratory Tests 03/25/21 05:27 Vital Signs Date Time Temp Pulse Resp B/P (MAP) Pulse Ox O2 Delivery O2 Flow Rate FiO2 03/25/21 08:23 78 167/77 03/25/21 07:23 97.3 18 95 Room Air I&O- Last 24 Hours up to 6 AM 03/25/21 06:00 Intake Total 1255 ml Output Total 2600 ml Balance -1345 ml ELENA PARHAM DO Mar 25, 2021 10:18
[2021-03-25 11:41] VITALS: BP 134/84
[2021-03-25] MEDS ORDERED: KCL 10MEQ/100ML SWI (KRUN) 10 MEQ in IV 1 EA IV ONE (12:00)
[2021-03-25] MEDS: cefTRIAXone SOD 2 GM in D5W MINI-BAG PLUS 50 ML IV SCH (13:12)
[2021-03-25 13:46] LABS: CALCIUM LEVEL 11.1 MG/DL (8.8-10.2); CREATININE FOR GFR 1.24 MG/DL (0.55-1.30); GLOMERULAR FILTRATION RATE 44.8 (>39); POTASSIUM SERUM 4.9 MEQ/L (3.5-5.1)
[2021-03-25] MEDS: AZITHROMYCIN INJ 500 MG, VIAL MATE ADAPTER 1 EACH in NS 250 ML IV SCH (14:06)
[2021-03-25 15:11] VITALS: BP 130/61
--- NOTE | 2021-03-25 17:13 | ECHO ---
ECHOCARDIOGRAM DATE OF PROCEDURE: 03/24/2021 Age: 75 Gender: Female Height: 59 inches Weight: 97 pounds, body surface area 1.36 m2 PATIENT LOCATION: Inpatient progressive care unit (PCU) Room 3225. REFERRING PHYSICIAN: Freeman Hartley M.D. INDICATION: Congestive heart failure (CHF). MEASUREMENTS: 2D Measurements: RV - 3.8 cm LV - 3.6 cm Septum 0.7 cm Posterior wall 0.7 cm Aortic root 3.0 cm LA - 2.9 cm LVEF 70% Doppler Measurements: AV - 1.43 m/s LVOT - 0.93 m/s LVOT diameter 1.8 cm MV-E 100, A 118, EA ratio 0.8 Early mitral deceleration time 240 msec E prime medial 7.8 A prime medial 10.2 E prime lateral 8.2 Average E/E prime ratio 12.5/PCWP 17.4 mmHg PV 1.0 m/s Pulmonary artery acceleration time 7 msec RVSP 47 mmHg IVC - 1.7 cm COMMENTS: Normal sinus rhythm without intraventricular conduction disturbance. M-mode and 2-dimensional echocardiography was performed with pulse, continuous wave, color flow and tissue Doppler studies. Normal left ventricular size, wall thickness and hyperkinetic wall motion. Normal left atrial size with grade 1 left ventricular (LV) diastolic dysfunction, but currently normal estimated mean left atrial pressure. At least mildly dilated right heart chambers with normal wall motion and Doppler evidence of at least moderate pulmonary hypertension. Normal inferior vena cava (IVC) size and collapse against an elevated central venous pressure. Normal aortic dimensions. Moderate aortic valvular sclerosis without stenosis and only trace insufficiency. Mild degenerative changes of the mitral valvular apparatus with very mild insufficiency. Normal appearing tricuspid valve with moderate insufficiency. Small posterior pericardial effusion and smaller anterior perfusion posteriorly measuring 4 mm and anteriorly measuring 2 mm with a small collection behind the right atrium, but no sign of cardiac chamber compression and no respiratory variation to Doppler flow signals to suggest tamponade.
[2021-03-25 20:00] VITALS: BP 136/85
[2021-03-25] MEDS: FERROUS GLUCONATE 324 MG TAB PO SCH (20:38)
[2021-03-26] VITALS: BP 137/66
[2021-03-26] MEDS: IPRATROPIUM 0.5MG/ALBUTEROL 2.5MG INH SOL UD 3ML (DUONEB) INH SCH ×6 (00:52→19:25)
[2021-03-26 04:00] VITALS: BP 150/76
[2021-03-26] MEDS: FUROSEMIDE 40MG/4ML VIAL (J1940) IV SCH ×3 (04:57→20:36)
[2021-03-26 05:56] LABS: HEMOGLOBIN 10.5 g/dl (12.0-15.5); MEAN CORPUSCULAR HEMOGLOBIN 26.3 pg (27.0-33.0); MEAN CORPUSCULAR HGB CONC 30.9 g/dl (32.0-36.5); MEAN CORPUSCULAR VOLUME 85.2 fl (80.0-96.0); RED BLOOD COUNT 3.99 10^6/uL (4.00-5.40); WHITE BLOOD COUNT 6.2 10^3/uL (4.0-10.0)
[2021-03-26 06:33] LABS: CREATININE FOR GFR 1.04 MG/DL (0.55-1.30); GLOMERULAR FILTRATION RATE 54.8 (>39); POTASSIUM SERUM 3.3 MEQ/L (3.5-5.1)
[2021-03-26 06:40] LABS: PLATELET COUNT, AUTOMATED 92 10^3/uL (150-450)
[2021-03-26 08:00] VITALS: BP 139/77
[2021-03-26] MEDS ORDERED: POTASSIUM CHLORIDE 10 MEQ SR TABLET PO ONE (08:00)
[2021-03-26] MEDS: AZITHROMYCIN 250MG TABLET PO SCH (08:25)
[2021-03-26] MEDS: DOCUSATE SODIUM 100MG CAPSULE PO SCH ×2 (08:25→20:36)
[2021-03-26] MEDS: FAMOTIDINE 20 MG TAB PO SCH (08:25)
[2021-03-26] MEDS: predniSONE 20 MG TAB PO SCH (08:25)
[2021-03-26 12:00] VITALS: BP 119/59
--- NOTE | 2021-03-26 12:17 | IPNPDOC ---
Text Note Date of Service The patient was seen on 03/26/21. NOTE Subjective: No any acute events overnight. Patient denies fever, chills, nausea, vomiting diarrhea or dysuria Objective: GENERAL APPEARANCE: NAD HEENT: no scleral icterus, plus JVD, EOMI CARDIOVASCULAR: S1S2 LUNGS: Diminished lung sounds bilaterally, more on the right side ABDOMEN: soft & not tender w palpitation MUSCULOSKELETAL: no cyanosis, no swelling INTEGUMENT: no generalized pallor NEUROLOGICAL: cranial nerve function from 2-12 intact intact, follows commands, speech not dysarthric Assessment and plan Patient is 75 years old female with past history of hypertension, idiopathic pulmonary fibrosis presented to the hospital with increased shortness of breath and generalized fatigue. Patient was found to have right-sided infiltrate on chest x-ray, fever, tachycardia and elevated lactic acidosis Sepsis Most likely secondary to right-sided community-acquired pneumonia versus infected pleural effusion. Procalcitonin was significantly elevated to 42 Patient received IV fluids according to sepsis protocol Await sputum culture One set of blood culture positive for gram-positive cocci, Corynebacterium species, most likely contamination. Second set of blood culture negative. MRSA negative. repeated blood culture negative I changed vancomycin and Zosyn to ceftriaxone and azithromycin day 5. CT chest was done 03/23/21 and showed Bilateral pleural effusions have developed since the February 08, 2021 study moderate to large on the right and small on the left. Bulky supraclavicular, axillary, mediastinal, retrocrural and, and upper abdominal lymphadenopathy is visible. CT abdomen/pelvis showed Bilateral pleural effusions and likely bilateral subsegmental atelectatic changes, however, early pneumonia cannot be ruled out. Ascites has developed since the last exam. Splenomegaly and extensive adenopathy I ordered thoracocentesis. Most likely will be today Resolved Right-sided community acquired pneumonia Continue antibiotic therapy Incentive spirometry Prednisone 40 mg daily for 5 days Leukocytosis resolved Right pleural effusion Differential diagnosis includes Infection versus malignancy versus CHF. In previous hospitalization in January 2021 it was concern for lymphoma given Bulky cervical and supraclavicular lymphadenopathy and hypercalcemia. Patient was recommended to have repeated excisional lymph note biopsy in the outpatient settings. 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 I will discuss with oncologist excisional lymph node biopsy after initial stabilization and thoracocentesis. BNP significantly elevated of 5077 echo showed diastolic dysfunction with Small posterior pericardial effusion and smaller anterior perfusion posteriorly no respiratory variation to Doppler flow signals to suggest tamponade. Will proceed with thoracocentesis today Acute diastolic CHF BNP elevated to 5077 echo see above I's and O's Continue Lasix IV Hypotension Secondary to sepsis Resolved FELIZ Secondary to intravascular depletion secondary to sepsis Improved Continue to monitor Hypertension Amlodipine with parameters GERD Continue famotidine Pulmonary fibrosis Follow-up with dye jig operator in the outpatient settings Hypokalemia Replaced VS,Fishbone, I+O VS, Fishbone, I+O Laboratory Tests 03/25/21 12:58 03/26/21 05:26 Vital Signs Date Time Temp Pulse Resp B/P (MAP) Pulse Ox O2 Delivery O2 Flow Rate FiO2 03/26/21 12:00 98.2 106 18 119/59 (79) 97 Room Air I&O- Last 24 Hours up to 6 AM 03/26/21 05:59 Intake Total 1575 ml Output Total 3550 ml Balance -1975 ml ELENA PARHAM DO Mar 26, 2021 12:17
[2021-03-26 12:29] VITALS: BP 110/58
[2021-03-26] MEDS: cefTRIAXone SOD 2 GM in D5W MINI-BAG PLUS 50 ML IV SCH (12:30)
[2021-03-26] MEDS ORDERED: SODIUM BICARBONATE 8.4% INJ 50MEQ 50 ML VIAL As Ordered ONE (15:37)
--- NOTE | 2021-03-26 16:13 | REP ---
INDICATION: large pl eff right side CX TIL 03/26 DUE TO ANTICOAG GIVEN. COMPARISON: None. TECHNIQUE: Assess degree of right pleural effusion pre thoracentesis. FINDINGS: There is only a minimal amount of right pleural fluid. IMPRESSION: Insufficient pleural effusion to perform thoracentesis. <Electronically signed by Paddy Young > 03/26/21 [id number]
[2021-03-26 20:22] VITALS: BP 151/70
[2021-03-26] MEDS: FERROUS GLUCONATE 324 MG TAB PO SCH (20:36)
[2021-03-27 00:09] VITALS: BP 134/71
[2021-03-27 03:28] VITALS: BP 139/66
[2021-03-27] MEDS: IPRATROPIUM 0.5MG/ALBUTEROL 2.5MG INH SOL UD 3ML (DUONEB) INH SCH ×6 (04:00→23:14)
[2021-03-27] MEDS: FUROSEMIDE 40MG/4ML VIAL (J1940) IV SCH (04:35)
[2021-03-27] MEDS ORDERED: POTASSIUM CHLORIDE 10 MEQ SR TABLET PO ONE ×2 (08:00→12:00)
[2021-03-27 08:28] VITALS: BP 159/85
[2021-03-27 08:59] LABS: HEMATOCRIT 33.7 % (36.0-47.0); HEMOGLOBIN 10.5 g/dl (12.0-15.5); MEAN CORPUSCULAR HEMOGLOBIN 26.9 pg (27.0-33.0); MEAN CORPUSCULAR HGB CONC 31.2 g/dl (32.0-36.5); MEAN CORPUSCULAR VOLUME 86.4 fl (80.0-96.0)
[2021-03-27 09:01] LABS: PLATELET COUNT, AUTOMATED 86 10^3/uL (150-450)
[2021-03-27] MEDS: AZITHROMYCIN 250MG TABLET PO SCH (09:11)
[2021-03-27] MEDS: DOCUSATE SODIUM 100MG CAPSULE PO SCH ×2 (09:11→20:18)
[2021-03-27] MEDS: predniSONE 20 MG TAB PO SCH (09:11)
[2021-03-27] MEDS: ENOXAPARIN 30MG/0.3ML SYRINGE (J1650 PER 10MG) SC SCH (09:12)
[2021-03-27 09:31] LABS: CALCIUM LEVEL 11.7 MG/DL (8.8-10.2); CREATININE FOR GFR 1.16 MG/DL (0.55-1.30); GLOMERULAR FILTRATION RATE 48.4 (>39); POTASSIUM SERUM 3.1 MEQ/L (3.5-5.1)
--- NOTE | 2021-03-27 11:32 | IPNPDOC ---
Text Note Date of Service The patient was seen on 03/27/21. NOTE Subjective: Patient is a 75-year-old female with a PMHx of HTN, Idiopathic pulmonary fibrosis, Suspected lymphoma (s/p LN biopsy, was scheduled to see Oncology on 04/16) who presented to the ER with SOB / generalized weakness. Patient was found to have a right-sided infiltrate on chest x-ray. Patient was admitted to the hospital service for suspected pneumonia. Patient was seen and examined at the bedside. Patient is sitting up in bed, appears relatively comfortable. Denies any chest pain, palpitations, shortness of breath, cough, has not experiencing nausea, vomiting, abdominal pain, diarrhea, or urinary discomfort. Objective: Vitals (See below) General: Sitting up in bed, appears comfortable, speaking in full sentences, AAOx3 HEENT: NC, AT CVS: +S1S2 Lungs: Fair air entry b/l, no wheezing, rales or rhonchi Abdomen: Soft, ND, NT Extremities: No evidence of edema, - Calf tenderness Imaging: CXR 03/21: Infiltrate right lung base. Renal US 03/22: Increased renal cortical echogenicity pattern consistent with medical renal disease. Sub cm cyst right kidney. No evidence of hydronephrosis, calculus, or mass. Chest CT 03/23: Bilateral pleural effusions have developed since the February 08, 2021 study moderate to large on the right and small on the left. Bulky supraclavicular, axillary, mediastinal, retrocrural and, and upper abdominal lymphadenopathy is visible. There is diffuse subcutaneous edema question anasarca versus low protein state. Cardiomegaly. Abdomen / Pelvis CT 03/23: 1. Bilateral pleural effusions and likely bilateral subsegmental atelectatic changes, however, early pneumonia cannot be ruled out. 2. Ascites has developed since the last exam. 3. Splenomegaly and extensive adenopathy, as described above, again noted. 4. Unchanged large oval-shaped left hemipelvic fluid collection. 5. Other findings as described above. Chest US 03/26: Insufficient pleural effusion to perform thoracentesis. Assessment and plan: Right sided pneumonia - Currently patient reports that her breathing is doing better. Denies any significant cough - Hemodynamically stable and afebrile - s/p Leukocytosis and Lactic acidosis - Blood cultures 03/21: 1 of 2 positive for Corynebacterium - Blood cultures 03/23: Negative at 72 hours - UA negative; Urine culture 03/22: Negative - Imaging noted above - c/w Ceftriaxone and Azithromycin; s/p Vancomycin and Zosyn (Antibiotic day #5) - c/w Incentive spirometry / acapella Bilateral pleural effusion (R>L) - Patient denies any significant shortness of breath - Saturating well on room air - Patient had gone for thoracentesis on 03/26; minimal fluid was found - c/w Furosemide; will transition to PO dosing Diastolic CHF - See above Suspected lymphoma - Previous hospitalization in ; concern for lymphoma given Bulky cervical and supraclavicular lymphadenopathy and hypercalcemia - LN biopsy 02/12 completed revealed suspicion for lymphoma; 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, suggestive of an abnormal proliferative process - Consulted general surgery today for excisional LN biopsy; likely for tomorrow - Cased discussed with oncology; patient has a scheduled appointment on 04/16; will have outpatient follow-up with oncology for likely initiation of therapy s/p Lactic acidosis s/p FELIZ - likely 2/2 hypotension / pre-renal etiology Hypokalemia - Will continue to supplement Thrombocytopenia - Platelet count has trended down since admission - Will check for heparin induced antibodies / Serotonin release assay - Will stop Lovenox HTN - BP well controlled - c/w Amlodipine with hold parameters Idiopathic pulmonary fibrosis - No evidence of exacerbation - Will have outpatient follow up with Pulmonology GI prophylaxis - c/w Famotidine DVT prophylaxis - DC Lovenox - c/w TEDs/Sequentials Disposition: - Awaiting clinical improvement [facility], I+O [facility] I+O Laboratory Tests 03/27/21 08:42 Vital Signs Date Time Temp Pulse Resp B/P (MAP) Pulse Ox O2 Delivery O2 Flow Rate FiO2 03/27/21 09:11 102 159/85 03/27/21 08:28 97.2 18 99 Room Air I&O- Last 24 Hours up to 6 AM 03/27/21 06:00 Intake Total 600 ml Output Total 1200 ml Balance -600 ml JALYN MAYER MD Mar 27, 2021 11:32
--- NOTE | 2021-03-27 11:50 | REP ---
INDICATION: Evaluate effusions COMPARISON: 03/21/2021 TECHNIQUE: Portable AP view of the chest FINDINGS: Moderate layering right pleural effusion and lower lobe atelectasis appears increased from prior examination. Small layering left effusion cannot be excluded. Mediastinum and cardiac silhouette are within normal limits and stable. No pneumothorax. Skeletal structures are stable. IMPRESSION: Moderate right pleural effusion and atelectasis appears increased. <Electronically signed by Sacha Bashir > 03/27/21 114
[2021-03-27 12:00] VITALS: BP 128/74
[2021-03-27] MEDS: cefTRIAXone SOD 2 GM in D5W MINI-BAG PLUS 50 ML IV SCH (14:09)
[2021-03-27 16:00] VITALS: BP 129/71
[2021-03-27] MEDS: FUROSEMIDE 40 MG TAB PO SCH (18:03)
[2021-03-27 20:00] VITALS: BP 134/65
[2021-03-27] MEDS: FERROUS GLUCONATE 324 MG TAB PO SCH (20:17)
[2021-03-28] VITALS: BP 122/64
[2021-03-28] MEDS: IPRATROPIUM 0.5MG/ALBUTEROL 2.5MG INH SOL UD 3ML (DUONEB) INH SCH ×6 (03:00→23:21)
[2021-03-28 04:00] VITALS: BP 136/75
[2021-03-28 05:59] LABS: HEMATOCRIT 27.9 % (36.0-47.0); HEMOGLOBIN 8.7 g/dl (12.0-15.5); MEAN CORPUSCULAR HEMOGLOBIN 27.4 pg (27.0-33.0); MEAN CORPUSCULAR HGB CONC 31.2 g/dl (32.0-36.5); MEAN CORPUSCULAR VOLUME 87.7 fl (80.0-96.0); RED BLOOD COUNT 3.18 10^6/uL (4.00-5.40); WHITE BLOOD COUNT 3.6 10^3/uL (4.0-10.0)
[2021-03-28 06:01] LABS: PLATELET COUNT, AUTOMATED 87 10^3/uL (150-450)
[2021-03-28 06:25] LABS: BLOOD UREA NITROGEN 32 MG/DL (7-18); CALCIUM LEVEL 10.5 MG/DL (8.8-10.2); CARBON DIOXIDE LEVEL 35 MEQ/L (21-32); CHLORIDE LEVEL 98 MEQ/L (98-107); CREATININE FOR GFR 0.86 MG/DL (0.55-1.30); GLOMERULAR FILTRATION RATE > 60.0 (>39); GLUCOSE, FASTING 87 MG/DL (70-100); MAGNESIUM LEVEL 1.6 MG/DL (1.8-2.4); SODIUM LEVEL 136 MEQ/L (136-145)
[2021-03-28] MEDS ORDERED: POTASSIUM CHLORIDE 10 MEQ SR TABLET PO ONE (06:50)
[2021-03-28] MEDS: MAG SULF 1GM/100ML (MAG RUN) 1 GM in IV 1 EA IV SCH ×2 (07:31→08:22)
[2021-03-28 07:49] VITALS: BP 154/80
[2021-03-28] MEDS: FUROSEMIDE 40 MG TAB PO SCH ×2 (08:56→17:54)
[2021-03-28] MEDS: FAMOTIDINE 20 MG TAB PO SCH (08:56)
[2021-03-28] MEDS: AZITHROMYCIN 250MG TABLET PO SCH (08:56)
[2021-03-28] MEDS: DOCUSATE SODIUM 100MG CAPSULE PO SCH ×2 (09:00→21:31)
--- NOTE | 2021-03-28 10:08 | IPNPDOC ---
Text Note Date of Service The patient was seen on 03/28/21. NOTE Subjective: Patient is a 75-year-old female with a PMHx of HTN, Idiopathic pulmonary fibrosis, Suspected lymphoma (s/p LN biopsy, was scheduled to see Oncology on 04/16) who presented to the ER with SOB / generalized weakness. Patient was found to have a right-sided infiltrate on chest x-ray. Patient was admitted to the hospital service for suspected pneumonia. Patient was seen and examined at the bedside. Currently she is sitting up in bed, appears to be comfortable, not in any acute distress. Denies any chest pain, shortness breath, palpitations, nausea, vomiting, abdominal pain or diarrhea. Objective: Vitals (See below) General: Again, sitting up in bed, appears comfortable, not in any acute distress, speaking in full sentences, is awake and alert, oriented 3 HEENT: Normal cephalic and atraumatic CVS: +S1S2 Lungs: Diminished air sounds bilaterally, but no evidence of wheezing, crackles or rhonchi Abdomen: Soft, nondistended, nontender Extremities: Lower extremity are without any edema, - Calf tenderness Imaging: CXR 03/21: Infiltrate right lung base. Renal US 03/22: Increased renal cortical echogenicity pattern consistent with medical renal disease. Sub cm cyst right kidney. No evidence of hydronephrosis, calculus, or mass. Chest CT 03/23: Bilateral pleural effusions have developed since the February 08, 2021 study moderate to large on the right and small on the left. Bulky supraclavicular, axillary, mediastinal, retrocrural and, and upper abdominal lymphadenopathy is visible. There is diffuse subcutaneous edema question anasarca versus low protein state. Cardiomegaly. Abdomen / Pelvis CT 03/23: 1. Bilateral pleural effusions and likely bilateral subsegmental atelectatic changes, however, early pneumonia cannot be ruled out. 2. Ascites has developed since the last exam. 3. Splenomegaly and extensive adenopathy, as described above, again noted. 4. Unchanged large oval-shaped left hemipelvic fluid collection. 5. Other findings as described above. Chest US 03/26: Insufficient pleural effusion to perform thoracentesis. Assessment and plan: Right sided pneumonia - Clinically has had improvement of her breathing - Hemodynamically stable and afebrile - s/p Leukocytosis and Lactic acidosis - Blood cultures 03/21: 1 of 2 positive for Corynebacterium - Blood cultures 03/23: Negative at 5 days - UA negative; Urine culture 03/22: Negative - Imaging noted above - c/w Ceftriaxone and Azithromycin; s/p Vancomycin and Zosyn (Antibiotic day #6) - c/w Incentive spirometry / acapella Bilateral pleural effusion (R>L) - Patient denies any significant shortness of breath - Saturating well on room air - Patient had gone for thoracentesis on 03/26; minimal fluid was found - Has remained negative fluid balance - c/w Furosemide PO Diastolic CHF - See above Suspected lymphoma - Previous hospitalization in ; concern for lymphoma given Bulky cervical and supraclavicular lymphadenopathy and hypercalcemia - LN biopsy 02/12 completed revealed suspicion for lymphoma; 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, suggestive of an abnormal proliferative process - Consulted general surgery for possible LN excisional biopsy; will await oncology input - As consulted oncology this morning to determine if additional biopsy may be required or if therapy can commence on the existing information s/p Lactic acidosis s/p FELIZ - likely 2/2 hypotension / pre-renal etiology Hypokalemia - Will continue to supplement - Will provide standing dose of potassium supplementation Thrombocytopenia - Platelet count has trended down since admission; stable since yesterday - Heparin induced antibodies / Serotonin release assay are pending - s/p Lovenox HTN - BP well controlled - c/w Amlodipine with hold parameters Idiopathic pulmonary fibrosis - No evidence of exacerbation - Will have outpatient follow up with Pulmonology GI prophylaxis - c/w Famotidine DVT prophylaxis - DC Lovenox - c/w TEDs/Sequentials Disposition: - Awaiting clinical improvement - Anticipate discharge within 24-48 hours VS,Fishbone, I+O VS, Fishbone, I+O Laboratory Tests 03/28/21 05:42 Vital Signs Date Time Temp Pulse Resp B/P (MAP) Pulse Ox O2 Delivery O2 Flow Rate FiO2 03/28/21 08:56 79 133/73 03/28/21 07:49 97.6 18 100 Room Air I&O- Last 24 Hours up to 6 AM 03/28/21 06:00 Intake Total 840 ml Output Total 1200 ml Balance -360 ml JALYN MAYER MD Mar 28, 2021 10:08
[2021-03-28 11:57] VITALS: BP 117/59
[2021-03-28] MEDS: cefTRIAXone SOD 2 GM in D5W MINI-BAG PLUS 50 ML IV SCH (13:02)
--- NOTE | 2021-03-28 13:06 | CR.PDOC ---
General Date of Consultation: Mar 28, [address] Gutierrez HISTORY OF PRESENT ILLNESS: The patient is a 75-year-old female admitted 03/21/2021 with confusion, weakness, and fever. The patient was admitted for sepsis secondary to right lower lobe pneumonia. The patient is also noted to have a history of suspected lymphoma status post lymph node biopsy 02/12/2021. This indicated atypical lymphoproliferation, 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 was detected suggestive of abnormal proliferative process indicating suspicion for lymphoma but according to the report the specimen was limited. General surgery is consulted for consideration of lymph node biopsy. The patient is scheduled to see oncology 04/16/2021. ALLERGIES: Please see below. HOME MEDICATIONS: Please see below. PAST MEDICAL HISTORY: Hypertension Idiopathic pulmonary fibrosis Osteoporosis Iron deficiency anemia Dyslipidemia PAST SURGICAL HISTORY: Partial right thyroidectomy History of basal cell carcinoma left nostril status post excision 09/12 FAMILY HISTORY: Hypertension SOCIAL HISTORY: Non-smoker REVIEW OF SYSTEMS: The patient is a limited historian, continues to report fatigue and weakness otherwise as noted in HPI. PHYSICAL EXAMINATION: VITAL SIGNS: Please see below. GENERAL APPEARANCE: Cachectic appearing no acute distress, sitting up in bed. HEENT: MMM RESPIRATORY: Respirations nonlabored CARDIOVASCULAR: S1-S2 regular rate rhythm ABDOMEN: Soft, nontender. Palpable lymph nodes in the groin area bilaterally. LABORATORY DATA: Please see below. ASSESSMENT/PLAN: Suspected lymphoma, general surgery consulted for consideration of lymph node biopsy. Previous hospitalization in 01/2021 with concern for lymphoma given bulky cervical and supraclavicular lymphadenopathy and hypercalcemia. LN biopsy 02/12 indicated suspicion for lymphoma, 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 was detected, suggestive of an abnormal proliferative process The patient is reviewed and examined as per Dr. Gutierrez this morning. Also discussed with the patient's hospitalist, Dr. Cavazos. Will await oncology input prior to proceeding with additional lymph node biopsy. Will continue to follow. Vital Signs/I&O Vital Signs Date Time Temp Pulse Resp B/P (MAP) Pulse Ox O2 Delivery O2 Flow Rate FiO2 03/28/21 11:57 97.7 107 18 117/59 (78) 97 Room Air I&O- Last 24 Hours up to 6 AM 03/28/21 06:00 Intake Total 840 ml Output Total 1200 ml Balance -360 ml Laboratory Data Labs 24H Laboratory Tests 2 03/28/21 05:42: Nucleated Red Blood Cells % (auto) 0.0, Anion Gap 3L, Glomerular Filtration Rate > 60.0, Calcium Level 10.5H, Magnesium Level 1.6L CBC/BMP Laboratory Tests 03/28/21 05:42 Microbiology Microbiology 03/23/21 Blood Culture - Final, Complete NO GROWTH AFTER 5 DAYS 03/23/21 Blood Culture - Final, Complete NO GROWTH AFTER 5 DAYS 03/22/21 Urine Culture - Final, Complete 03/21/21 Blood Culture - Final, Complete NO GROWTH AFTER 5 DAYS 03/21/21 Blood Culture - Final, Complete Corynebacterium Sp. Not Jk Allergies Coded Allergies: No Known Allergies (Unverified , 02/08/21) Home Medications Scheduled Amlodipine Besylate (Amlodipine Besylate) 5 Mg Tablet, 5 MG PO DAILY, (Reported) Cholecalciferol (Vitamin D3) (Vitamin D3) 1,000 Unit Tablet, 1,000 UNITS PO DAILY, (Reported) Famotidine (Famotidine) 20 Mg Tablet, 20 MG PO DAILY, (Reported) Ferrous Gluconate (Ferrous Gluconate) 324 Mg Tablet, 324 MG PO QPM, (Reported) Ibandronate Sodium (Ibandronate Sodium) 150 Mg Tablet, 150 MG PO QMONTH, (Reported) Miscellaneous Medications [Patient Comment] , (Reported) MED LIST OBTAINED FROM PHARMACY Wilda Curtis Mar 28, 2021 13:06
[2021-03-28 15:58] VITALS: BP 136/62
--- NOTE | 2021-03-28 18:03 | CR.PDOC ---
General Date of Consultation: Mar 28, 2021 Consultation Reason for consulting: Oncology has been asked to provide an opinion as to whether it is necessary that this patient undertake another biopsy from an area which will provide large lymph node for the purposes of establishing a cause of her diffuse lymphadenopathy .This patient had on 02/12/2021 undergone a left inguinal node biopsy that was ambiguous in terms of what the final diagnosis . Thus from the [facility] an addendum on 02/28/[address] Lev Meeks reported that the provided block was positive for monoclonal IgG H and Ig K gene rearrangements and for a clonal rearrangement of the TCR G gene these findings he felt were consistent with an abnormal B and T-cell proliferations concurrently. They have he felt that angioimmunoblastic lymphoma was one of the few non-Hodgkin's lymphoma subtypes that could present with both the cell lines because they are unusual to coexist as such. He also felt that one of these cell lines may be an incidental finding and did not confirm definitively any specific lymphoma diagnosis thus an excisional biopsy was st ill recommended if clinically indicated which I think it is. CT scans of the chest and abdomen show lymphadenopathy present both in the chest as well as in the abdomen along with splenomegaly. The lymphadenopathy is large and significant and one may read the details in the medical record that we have here. There is also evidence of fluid and inflammatory changes in the lung particularly I see on the right. At the time of examining the patient she felt fatigued and tired and was unable to give a detailed account of herself. Past medical history of hypertension idiopathic pulmonary fibrosis osteoporosis iron deficiency anemia dyslipidemia Surgical history consists of partial right thyroidectomy history of basal cell carcinoma of the left nostril s/p excision on 1215 Family history of hypertension Socially not a smoker It was difficult to take a detailed history of review of systems because the patient major complaint was being tired and given the set of circumstances of much more could be cleaned on conversation. But the patient has been referred in order that we may give our opinion as to the role of the need for lymph node biopsy in this patient was had a prior left lymph node biopsy done on 02/12/2021 based on the histopathology report. Physical examination revealed a cooperative thin woman had to be woken up comfortable at the moment of examination vital signs are stable HEENT pupils circular equal and active ocular movements are full and preserved Chest reduced breath sounds Could not feel supraclavicular nodes Heart essentially unremarkable no gallop Abdomen soft no edema Recommendations. * Unfortunately the role of pathology is paramount in planning treatment. We are mindful of the pathology reports and in this particular case a lymph node biopsy would be very helpful if carried out in toto. This would help delineate the histopathological type of lymphoma because in many instances treatments are dependent upon the histopathology with variations between them. Certain lymphoid disorders can be hybrid. I realize the patient is frail. I would not recommend a groin node because these tend to be confounding given the area and its inflammatory drainage. * Additional problems are present in this patient in the form of infection but they should not be a significant factor should a lymph node be biopsied and one is edson to get the appropriate histopathological report which is nonambiguous. Unfortunately there are many disorders which are hybrid and need exclusion for long-term management Thank you for consulting Vital Signs/I&O Vital Signs Date Time Temp Pulse Resp B/P (MAP) Pulse Ox O2 Delivery O2 Flow Rate FiO2 03/28/21 15:58 97.2 112 18 136/62 (86) 98 Room Air I&O- Last 24 Hours up to 6 AM 03/28/21 06:00 Intake Total 840 ml Output Total 1200 ml Balance -360 ml Laboratory Data Labs 24H Laboratory Tests 2 03/28/21 05:42: Nucleated Red Blood Cells % (auto) 0.0, Anion Gap 3L, Glomerular Filtration Rate > 60.0, Calcium Level 10.5H, Magnesium Level 1.6L CBC/BMP Laboratory Tests 03/28/21 05:42 Microbiology Microbiology 03/23/21 Blood Culture - Final, Complete NO GROWTH AFTER 5 DAYS 03/23/21 Blood Culture - Final, Complete NO GROWTH AFTER 5 DAYS 03/22/21 Urine Culture - Final, Complete 03/21/21 Blood Culture - Final, Complete NO GROWTH AFTER 5 DAYS 03/21/21 Blood Culture - Final, Complete Corynebacterium Sp. Not Jk Allergies Coded Allergies: No Known Allergies (Unverified , 02/08/21) Home Medications Scheduled Amlodipine Besylate (Amlodipine Besylate) 5 Mg Tablet, 5 MG PO DAILY, (Reported) Cholecalciferol (Vitamin D3) (Vitamin D3) 1,000 Unit Tablet, 1,000 UNITS PO D AILY, (Reported) Famotidine (Famotidine) 20 Mg Tablet, 20 MG PO DAILY, (Reported) Ferrous Gluconate (Ferrous Gluconate) 324 Mg Tablet, 324 MG PO QPM, (Reported) Ibandronate Sodium (Ibandronate Sodium) 150 Mg Tablet, 150 MG PO QMONTH, (Reported) Miscellaneous Medications [Patient Comment] , (Reported) MED LIST OBTAINED FROM PHARMACY SAMANTHA ROY Mar 28, 2021 18:03
[2021-03-28 20:00] VITALS: BP 137/67
[2021-03-28] MEDS: ACETAMINOPHEN TAB 650MG DOSE (2X325MG) PO PRN (21:30)
[2021-03-28] MEDS: POTASSIUM CHLORIDE 10 MEQ SR TABLET PO SCH (21:31)
[2021-03-28] MEDS: FERROUS GLUCONATE 324 MG TAB PO SCH (21:31)
[2021-03-29 04:00] VITALS: BP 146/70
[2021-03-29] MEDS: IPRATROPIUM 0.5MG/ALBUTEROL 2.5MG INH SOL UD 3ML (DUONEB) INH SCH ×6 (04:00→23:34)
[2021-03-29 07:22] LABS: HEMATOCRIT 29.2 % (36.0-47.0); HEMOGLOBIN 9.1 g/dl (12.0-15.5); MEAN CORPUSCULAR HEMOGLOBIN 27.2 pg (27.0-33.0); MEAN CORPUSCULAR HGB CONC 31.2 g/dl (32.0-36.5); MEAN CORPUSCULAR VOLUME 87.4 fl (80.0-96.0); PLATELET COUNT, AUTOMATED 113 10^3/uL (150-450); RED BLOOD COUNT 3.34 10^6/uL (4.00-5.40); WHITE BLOOD COUNT 4.4 10^3/uL (4.0-10.0)
[2021-03-29 08:14] LABS: ANISOCYTOSIS 1+; ATYPICAL LYMPH 5 % (0-5); BASOPHILS 1 % (0-1); LYMPHOCYTES 23 % (16-44); MONOCYTES 8 % (0-5); MYELOCYTES 1 % (0-0); NEUTROPHILS 61 % (28-66); PLATELET ESTIMATE DECREASED (NORMAL)
[2021-03-29 08:24] VITALS: BP 140/80
[2021-03-29 08:45] LABS: CALCIUM LEVEL 9.7 MG/DL (8.8-10.2); CREATININE FOR GFR 1.06 MG/DL (0.55-1.30); GLOMERULAR FILTRATION RATE 53.7 (>39); MAGNESIUM LEVEL 2.1 MG/DL (1.8-2.4); POTASSIUM SERUM 4.1 MEQ/L (3.5-5.1)
[2021-03-29] MEDS: DOCUSATE SODIUM 100MG CAPSULE PO SCH ×2 (08:52→21:15)
[2021-03-29] MEDS: POTASSIUM CHLORIDE 10 MEQ SR TABLET PO SCH (08:58)
[2021-03-29] MEDS: FUROSEMIDE 40 MG TAB PO SCH ×2 (08:58→17:10)
[2021-03-29] MEDS: AZITHROMYCIN 250MG TABLET PO SCH (08:58)
[2021-03-29] MEDS: CEFDINIR 300 MG CAP (OMNICEF) PO SCH ×2 (08:58→21:14)
--- NOTE | 2021-03-29 13:22 | IPNPDOC ---
Text Note Date of Service The patient was seen on 03/29/21. NOTE Subjective: Patient is a 75-year-old female with a PMHx of HTN, Idiopathic pulmonary fibrosis, Suspected lymphoma (s/p LN biopsy, was scheduled to see Oncology on ) who presented to the ER with SOB / generalized weakness. Patient was found to have a right-sided infiltrate on chest x-ray. Patient was admitted to the hospital service for suspected pneumonia. Patient was seen and examined at the bedside. Patient is sitting up in chair combing her hair appears to be comfortable, not in any acute distress. Denies any chest pain, short of breath or palpitations. Has not recently nausea, vomiting, abdominal pain or diarrhea. Patient scheduled for a lymph node biopsy today. Objective: Vitals (See below) General: Patient is sitting up in chair, appears to be comfortable, not in any acute distress, combing her hair, awake and alert, oriented 3 HEENT: Atraumatic and normocephalic CVS: +S1S2 Lungs: Air entry appears to be fair bilaterally without any significant wheezing, crackles or rhonchi Abdomen: Soft, without any appreciated tenderness or distention Extremities: No evidence of lower extremity edema Imaging: CXR 03/21: Infiltrate right lung base. Renal US 03/22: Increased renal cortical echogenicity pattern consistent with medical renal disease. Sub cm cyst right kidney. No evidence of hydronephrosis, calculus, or mass. Chest CT 03/23: Bilateral pleural effusions have developed since the February 08, 2021 study moderate to large on the right and small on the left. Bulky supraclavicular, axillary, mediastinal, retrocrural and, and upper abdominal lymphadenopathy is visible. There is diffuse subcutaneous edema question anasarca versus low protein state. Cardiomegaly. Abdomen / Pelvis CT 03/23: 1. Bilateral pleural effusions and likely bilateral subsegmental atelectatic changes, however, early pneumonia cannot be ruled out. 2. Ascites has developed since the last exam. 3. Splenomegaly and extensive adenopathy, as described above, again noted. 4. Unchanged large oval-shaped left hemipelvic fluid collection. 5. Other findings as described above. Chest US 03/26: Insufficient pleural effusion to perform thoracentesis. Assessment and plan: Right sided pneumonia - No significant shortness of breath or cough - Has continued to remain afebrile - s/p Leukocytosis and Lactic acidosis - Blood cultures 03/21: 1 of 2 positive for Corynebacterium - Blood cultures 03/23: Negative at 5 days - UA negative; Urine culture 03/22: Negative - Imaging noted above - c/w Cefdinir and Azithromycin; s/p Ceftriaxone and Azithromycin; s/p Vancomycin and Zosyn (Day #8 of therapy) - c/w Incentive spirometry / acapella Bilateral pleural effusion (R>L) - Patient denies any significant shortness of breath - Saturating well on room air - Patient had gone for thoracentesis on 03/26; minimal fluid was found - Has remained negative fluid balance - c/w Furosemide PO Diastolic CHF - See above Suspected lymphoma - Previous hospitalization in ; concern for lymphoma given Bulky cervical and supraclavicular lymphadenopathy and hypercalcemia - LN biopsy 02/12 completed revealed suspicion for lymphoma; 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, suggestive of an abnormal proliferative process - General surgery on consultation; LN excisional biopsy scheduled for today - Oncology on consultation; recommend excisional LN biopsy s/p Lactic acidosis s/p FELIZ - likely 2/2 hypotension / pre-renal etiology s/p Hypokalemia - Will reduce standing supplementation Thrombocytopenia - Platelet count has trended down since admission; stable since yesterday - Heparin induced antibodies / Serotonin release assay are pending - s/p Lovenox HTN - BP well controlled - c/w Amlodipine with hold parameters Idiopathic pulmonary fibrosis - No evidence of exacerbation - Will have outpatient follow up with Pulmonology GI prophylaxis - c/w Famotidine DVT prophylaxis - DC Lovenox - c/w TEDs/Sequentials Disposition: - Awaiting clinical improvement - Anticipate discharge home tomorrow VS,Fishbone, I+O VS, Fishbone, I+O Laboratory Tests 03/29/21 07:10 Vital Signs Date Time Temp Pulse Resp B/P (MAP) Pulse Ox O2 Delivery O2 Flow Rate FiO2 03/29/21 08:58 112 140/80 03/29/21 08:24 98.0 18 96 Room Air I&O- Last 24 Hours up to 6 AM 03/29/21 06:00 Intake Total 900 ml Output Total 1200 ml Balance -300 ml JALYN MAYER MD Mar 29, 2021 13:22
[2021-03-29] MEDS ORDERED: BUPIVACAINE/EPIN 0.25% 30 ML VIAL As Ordered ONE (13:56)
[2021-03-29] MEDS ORDERED: LIDOCAINE 2% 100MG/5ML SDV (FOR ANES.) As Ordered ONE (14:24)
[2021-03-29] MEDS ORDERED: propofoL 200 MG/20 ML VIAL As Ordered ONE (14:24)
[2021-03-29] MEDS ORDERED: ONDANSETRON 4MG/2ML VIAL As Ordered ONE (14:24)
[2021-03-29] MEDS ORDERED: dexameTHASONE 4 MG/ML 1ML VIAL (J1100 PER 1MG) As Ordered ONE (14:24)
[2021-03-29] MEDS ORDERED: MIDAZOLAM INJ 2MG/2ML VIAL (J2250 PER 1MG) As Ordered ONE (14:25)
[2021-03-29] MEDS ORDERED: fentaNYL 100 MCG/2 ML INJECTION (J3010) As Ordered ONE (14:25)
[2021-03-29] MEDS ORDERED: PHENYLephrine 500MCG 5ML (100MCG/ML) SYRINGE As Ordered ONE (15:16)
[2021-03-29] MEDS ORDERED: PERCOCET 5MG/325MG TAB PO PRN (15:55)
[2021-03-29] MEDS ORDERED: ONDANSETRON 4MG/2ML VIAL IV PRN (15:55)
[2021-03-29] MEDS ORDERED: fentaNYL 100 MCG/2 ML INJECTION (J3010) IV PRN (15:55)
[2021-03-29] MEDS ORDERED: LR 1,000 ML IV SCH (15:55)
[2021-03-29 16:00] VITALS: BP 136/76
--- NOTE | 2021-03-29 16:06 | RO ---
OPERATIVE NOTE DATE OF OPERATION: 03/21/2021 PREOPERATIVE DIAGNOSIS: Questionable lymphoma with lymphadenopathy. POSTOPERATIVE DIAGNOSIS: Questionable lymphoma with lymphadenopathy. PROCEDURE: Excision of the left neck lymph node. SURGEON: Ravinder Gutierrez M.D. ANESTHESIA: General endotracheal anesthesia. ESTIMATED BLOOD LOSS: Minimal. FLUIDS: Crystalloid. BRIEF PROCEDURE SUMMARY: The patient was brought to the operating room and was given general anesthesia. The patient was prepped and draped in the usual sterile fashion. Next, a small incision was made over the obvious lymph node that was over the sternocleidomastoid muscle on the left hand side and very superficial, but more firm than a typical lymph node by palpation. An incision was made in combination with blunt and sharp dissection, as well as electrocautery used to cut down to the lymph node. The lymph node was dissected out using blunt dissection as well as electrocautery. This was removed in its entirety. The dermis was brought together with 4-0 Vicryl over the top of this with Steri-Strips and a dry sterile dressing. The patient was brought to the recovery room, awake, alert, hemodynamically stable. Pathology is pending at this time.
[2021-03-29 20:00] VITALS: BP 136/88
[2021-03-29] MEDS ORDERED: POTASSIUM CHLORIDE 10 MEQ SR TABLET PO SCH (21:00)
[2021-03-29] MEDS: FERROUS GLUCONATE 324 MG TAB PO SCH (21:15)
[2021-03-30] MEDS: IPRATROPIUM 0.5MG/ALBUTEROL 2.5MG INH SOL UD 3ML (DUONEB) INH SCH ×5 (03:23→20:00)
[2021-03-30 04:00] VITALS: BP 157/72
[2021-03-30 05:32] LABS: BASO % 0.4 % (0.0-1.0); EOS % 0.4 % (0.0-3.0); HEMATOCRIT 30.9 % (36.0-47.0); HEMOGLOBIN 9.3 g/dl (12.0-15.5); LYMPH # 0.8 10^3/uL (1.5-5.0); LYMPH % 16.1 % (24.0-44.0); MEAN CORPUSCULAR HEMOGLOBIN 26.7 pg (27.0-33.0); MEAN CORPUSCULAR HGB CONC 30.1 g/dl (32.0-36.5); MEAN CORPUSCULAR VOLUME 88.8 fl (80.0-96.0); MONO # 0.5 10^3/uL (0.0-0.8); NEUTROPHILS # 3.3 10^3/uL (1.5-8.5); NEUTROPHILS % 68.2 % (36.0-66.0); PLATELET COUNT, AUTOMATED 143 10^3/uL (150-450); RED BLOOD COUNT 3.48 10^6/uL (4.00-5.40); WHITE BLOOD COUNT 4.8 10^3/uL (4.0-10.0)
[2021-03-30 05:52] LABS: CALCIUM LEVEL 9.8 MG/DL (8.8-10.2); CREATININE FOR GFR 1.45 MG/DL (0.55-1.30); GLOMERULAR FILTRATION RATE 37.4 (>39); MAGNESIUM LEVEL 2.2 MG/DL (1.8-2.4); POTASSIUM SERUM 4.5 MEQ/L (3.5-5.1)
[2021-03-30 08:00] VITALS: BP 151/71
[2021-03-30] MEDS: DOCUSATE SODIUM 100MG CAPSULE PO SCH ×2 (08:34→20:29)
[2021-03-30 08:43] VITALS: BP 131/78
[2021-03-30] MEDS: CEFDINIR 300 MG CAP (OMNICEF) PO SCH (08:44)
[2021-03-30] MEDS: FAMOTIDINE 20 MG TAB PO SCH (08:44)
[2021-03-30] MEDS: AZITHROMYCIN 250MG TABLET PO SCH (08:45)
--- NOTE | 2021-03-30 12:09 | IPNPDOC ---
Text Note Date of Service The patient was seen on 03/30/21. NOTE Subjective: Patient is a 75-year-old female with a PMHx of HTN, Idiopathic pulmonary fibrosis, Suspected lymphoma (s/p LN biopsy, was scheduled to see Oncology on ) who presented to the ER with SOB / generalized weakness. Patient was found to have a right-sided infiltrate on chest x-ray. Patient was admitted to the hospital service for suspected pneumonia. Patient was seen and examined at the bedside. Patient was sitting up at the edge of the bed, appears comfortable, not in any acute distress breakfast. Denies any chest pain, short , palpitations, nausea, vomiting, abdominal pain or diarrhea. She was concerned with her left neck incision reported that she is worried that may leave a scar. Objective: Vitals (See below) General: Sitting up at the edge of bed without any acute distress, comfortable and eating breakfast, awake and alert, oriented 3 HEENT: Atraumatic and normocephalic CVS: +S1S2 Lungs: Air entry is fair bilaterally without any appreciated of rhonchi, wheezing or crackles Abdomen: Remains nondistended, nontender, soft Extremities: No edema Imaging: CXR 03/21: Infiltrate right lung base. Renal US 03/22: Increased renal cortical echogenicity pattern consistent with medical renal disease. Sub cm cyst right kidney. No evidence of hydronephrosis, calculus, or mass. Chest CT 03/23: Bilateral pleural effusions have developed since the February 08, 2021 study moderate to large on the right and small on the left. Bulky supraclavicular, axillary, mediastinal, retrocrural and, and upper abdominal lymphadenopathy is visible. There is diffuse subcutaneous edema question anasarca versus low protein state. Cardiomegaly. Abdomen / Pelvis CT 03/23: 1. Bilateral pleural effusions and likely bilateral subsegmental atelectatic changes, however, early pneumonia cannot be ruled out. 2. Ascites has developed since the last exam. 3. Splenomegaly and extensive adenopathy, as described above, again noted. 4. Unchanged large oval-shaped left hemipelvic fluid collection. 5. Other findings as described above. Chest US 03/26: Insufficient pleural effusion to perform thoracentesis. Assessment and plan: Right sided pneumonia - Denies any SOB or cough - Afebrile / Hemodynamically stable - s/p Leukocytosis and Lactic acidosis - Blood cultures 03/21: 1 of 2 positive for Corynebacterium - Blood cultures 03/23: Negative at 5 days - UA negative; Urine culture 03/22: Negative - Imaging noted above - c/w Cefdinir and Azithromycin; s/p Ceftriaxone and Azithromycin; s/p Vancomycin and Zosyn (Day #9 of therapy) - c/w Incentive spirometry / acapella Bilateral pleural effusion (R>L) - Patient denies any significant shortness of breath - Saturating well on room air - Patient had gone for thoracentesis on 03/26; minimal fluid was found - Has remained negative fluid balance - s/p Furosemide FELIZ - likely 2/2 hypotension / pre-renal etiology - Will stop diuretics at this time Chronic Diastolic CHF - See above Suspected lymphoma - Previous hospitalization in ; concern for lymphoma given Bulky cervical and supraclavicular lymphadenopathy and hypercalcemia - LN biopsy 02/12 completed revealed suspicion for lymphoma; 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, suggestive of an abnormal proliferative process - s/p Excisional LN biopsy on 03/29 - pathology pending - General surgery on consultation; appreciate their input - Oncology on consultation; appreciate their input - Patient will have outpatient follow-up with oncology and general surgery on discharge s/p Lactic acidosis s/p Hypokalemia - Will stop supplementation Thrombocytopenia - Platelet count has trended down since admission;has improved since stopping Lovenox - Heparin induced antibodies / Serotonin release assay are pending - s/p Lovenox HTN - BP well controlled - c/w Amlodipine with hold parameters Idiopathic pulmonary fibrosis - No evidence of exacerbation - Will have outpatient follow up with Pulmonology GI prophylaxis - c/w Famotidine DVT prophylaxis - DC Lovenox - c/w TEDs/Sequentials Disposition: - Anticipate DC home tomorrow morning VS,Fishbone, I+O VS, Fishbone, I+O Laboratory Tests 03/30/21 05:19 Vital Signs Date Time Temp Pulse Resp B/P (MAP) Pulse Ox O2 Delivery O2 Flow Rate FiO2 03/30/21 08:44 118 131/78 03/30/21 08:00 97.7 18 95 Room Air 03/29/21 16:20 2.0 I&O- Last 24 Hours up to 6 AM 03/30/21 05:59 Intake Total 400 ml Output Total 1501 ml Balance -1101 ml JALYN MAYER MD Mar 30, 2021 12:09
[2021-03-30 15:37] LABS: CALCIUM LEVEL 9.9 MG/DL (8.8-10.2); CREATININE FOR GFR 1.61 MG/DL (0.55-1.30); GLOMERULAR FILTRATION RATE 33.1 (>39); POTASSIUM SERUM 4.3 MEQ/L (3.5-5.1)
[2021-03-30 16:00] VITALS: BP 119/65
[2021-03-30] MEDS ORDERED: NS 1,000 ML IV SCH (19:25)
[2021-03-30 20:00] VITALS: BP 143/76
[2021-03-30] MEDS: FERROUS GLUCONATE 324 MG TAB PO SCH (20:29)
[2021-03-31 04:00] VITALS: BP 136/72
[2021-03-31] MEDS: IPRATROPIUM 0.5MG/ALBUTEROL 2.5MG INH SOL UD 3ML (DUONEB) INH SCH ×4 (04:00→12:00)
[2021-03-31 05:33] LABS: BASO % 0.4 % (0.0-1.0); EOS % 0.5 % (0.0-3.0); HEMATOCRIT 28.6 % (36.0-47.0); HEMOGLOBIN 8.8 g/dl (12.0-15.5); LYMPH # 0.9 10^3/uL (1.5-5.0); LYMPH % 16.7 % (24.0-44.0); MEAN CORPUSCULAR HEMOGLOBIN 27.8 pg (27.0-33.0); MEAN CORPUSCULAR HGB CONC 30.8 g/dl (32.0-36.5); MEAN CORPUSCULAR VOLUME 90.5 fl (80.0-96.0); MONO # 0.6 10^3/uL (0.0-0.8); MONO % 10.4 % (2.0-8.0); NEUTROPHILS # 3.9 10^3/uL (1.5-8.5); NEUTROPHILS % 69.7 % (36.0-66.0); PLATELET COUNT, AUTOMATED 169 10^3/uL (150-450); RED BLOOD COUNT 3.16 10^6/uL (4.00-5.40); WHITE BLOOD COUNT 5.6 10^3/uL (4.0-10.0)
[2021-03-31 05:56] LABS: CALCIUM LEVEL 9.3 MG/DL (8.8-10.2); CREATININE FOR GFR 1.33 MG/DL (0.55-1.30); GLOMERULAR FILTRATION RATE 41.3 (>39); POTASSIUM SERUM 3.8 MEQ/L (3.5-5.1)
[2021-03-31 08:00] VITALS: BP 148/70
[2021-03-31] MEDS: DOCUSATE SODIUM 100MG CAPSULE PO SCH (09:00)
[2021-03-31] MEDS ORDERED: CEFDINIR 300 MG CAP (OMNICEF) PO SCH (09:00)
[2021-03-31 09:08] VITALS: BP 148/70
[2021-03-31] MEDS: AZITHROMYCIN 250MG TABLET PO SCH (09:08)
--- NOTE | 2021-03-31 09:09 | REPVR ---
PROCEDURE INFORMATION: Exam: XR Chest Exam date and time: 03/31/2021 6:52 AM Age: 75 years old Clinical indication: Other: Evaluate effusion TECHNIQUE: Imaging protocol: XR of the chest. Views: 1 view. COMPARISON: HI PORTABLE CHEST X-RAY 03/27/2021 11:42 AM FINDINGS: Lungs: Emphysematous change, interstitial prominence, and trace basilar airspace disease. Pleural spaces: Trace right pleural effusion. Heart/Mediastinum: Cardiac silhouette upper limits of normal size. Vasculature: Ectasia of the thoracic aorta. Bones/joints: Osteopenia and mild degenerative change. When compared to the previous study, there has been interval improvement in right basilar airspace/pleural disease. IMPRESSION: 1. Emphysematous change, interstitial prominence, and trace basilar airspace disease. 2. Trace right pleural effusion. Electronically signed by: Alejandro Webb On 03/31/2021 09:09:21 AM
[2021-03-31] MEDS ORDERED: AMLO1TAB24 PO (11:22)
[2021-03-31] MEDS ORDERED: AZIT-12 PO (11:22)
[2021-03-31] MEDS ORDERED: CEFD300CAP PO (11:22)
[2021-03-31] MEDS ORDERED: VENTAER INH (11:22)
--- NOTE | 2021-03-31 13:03 | DS.PDOC ---
Discharge Summary General Date of Admission Mar 21, 2021 at 19:07 Date of Discharge 03/31/2021 Discharge Summary PROCEDURES PERFORMED DURING STAY: [None] ADMITTING DIAGNOSES / DISCHARGE DIAGNOSES: s/p Right sided pneumonia Bilateral pleural effusion (R>L) FELIZ - likely 2/2 hypotension / pre-renal etiology Chronic Diastolic CHF Suspected lymphoma s/p Lactic acidosis s/p Hypokalemia Thrombocytopenia HTN Idiopathic pulmonary fibrosis GI prophylaxis DVT prophylaxis COMPLICATIONS/CHIEF COMPLAINT: Pneumonia. HISTORY OF PRESENT ILLNESS: Patient is a 75-year-old female with a PMHx of HTN, Idiopathic pulmonary fibrosis, Suspected lymphoma (s/p LN biopsy, was scheduled to see Oncology on 04/16) who presented to the ER with SOB / generalized weakness. Patient was found to have a right-sided infiltrate on chest x-ray. Patient was admitted to the hospital service for suspected pneumonia. Patient was seen and examined at the bedside. Patient reported that she felt relatively well this morning. Denies any chest pain, shortness breath, palpitations, nausea, vomiting, abdominal pain or diarrhea. Patient has been working with physical therapy and has progressed well. HOSPITAL COURSE: s/p Right sided pneumonia - Has had improvement of her breathing and has remained hemodynamically stable without any DrFelecia Cheng - s/p Leukocytosis and Lactic acidosis - Blood cultures 03/21: 1 of 2 positive for Corynebacterium - Blood cultures 03/23: Negative at 5 days - UA negative; Urine culture 03/22: Negative - Imaging noted above - c/w Cefdinir and Azithromycin; s/p Ceftriaxone and Azithromycin; s/p Vanco mycin and Zosyn (Day #10 of therapy) - will complete course as an outpatient - c/w Incentive spirometry / acapella - Will have outpatient follow-up with primary care provider within the next 7 days Bilateral pleural effusion (R>L) - No significant shortness of breath - Saturating well on room air - Patient had gone for thoracentesis on 03/26; minimal fluid was found - Has remained negative fluid balance - Imaging has revealed improvement of effusions - s/p Furosemide FELIZ - likely 2/2 hypotension / pre-renal etiology - Has been trending down - s/p Diuretics Chronic Diastolic CHF - See above Suspected lymphoma - Previous hospitalization in ; concern for lymphoma given Bulky cervical and supraclavicular lymphadenopathy and hypercalcemia - LN biopsy 02/12 completed revealed suspicion for lymphoma; 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, suggestive of an abnormal proliferative process - s/p Excisional LN biopsy on 03/29 - pathology pending - General surgery on consultation; appreciate their input - Oncology on consultation; appreciate their input - Patient will have outpatient follow-up with oncology and general surgery on discharge - Patient is scheduled to follow-up with oncology on 04/16 for results of excisional lymph node biopsy s/p Lactic acidosis s/p Hypokalemia - Will stop supplementation Thrombocytopenia - Platelet count has trended down since admission;has improved since stopping Lovenox - Heparin induced antibodies / Serotonin release assay are pending - s/p Lovenox HTN - BP well controlled - c/w Amlodipine with hold parameters Idiopathic pulmonary fibrosis - No evidence of exacerbation - Will have outpatient follow up with Pulmonology GI prophylaxis - c/w Famotidine DVT prophylaxis - DC Lovenox - c/w TEDs/Sequentials DISCHARGE MEDICATIONS: Please see below. ALLERGIES: Please see below. PHYSICAL EXAMINATION ON DISCHARGE: Vitals (See below) General: Lying in bed, appears comfortable, AAOx3 HEENT: NC, AT CVS: +S1S2 Lungs: Fair air entry b/l, no wheezing, rales or rhonchi Abdomen: Soft, non-distended, non-tender Extremities: No evidence of edema, - Calf tenderness LABORATORY DATA: Please see below. IMAGING: CXR 03/21: Infiltrate right lung base. Renal US 03/22: Increased renal cortical echogenicity pattern consistent with medical renal disease. Sub cm cyst right kidney. No evidence of hydronephrosis, calculus, or mass. Chest CT 03/23: Bilateral pleural effusions have developed since the February 08, 2021 study moderate to large on the right and small on the left. Bulky supraclavicular, axillary, mediastinal, retrocrural and, and upper abdominal lymphadenopathy is visible. There is diffuse subcutaneous edema question anasarca versus low protein state. Cardiomegaly. Abdomen / Pelvis CT 03/23: 1. Bilateral pleural effusions and likely bilateral subsegmental atelectatic changes, however, early pneumonia cannot be ruled out. 2. Ascites has developed since the last exam. 3. Splenomegaly and extensive adenopathy, as described above, again noted. 4. Unchanged large oval-shaped left hemipelvic fluid collection. 5. Other findings as described above. Chest US 03/26: Insufficient pleural effusion to perform thoracentesis. CXR 03/31: 1. Emphysematous change, interstitial prominence, and trace basilar airspace disease. 2. Trace right pleural effusion. ACTIVITY: [As tolerated]. DISCHARGE PLAN: Follow-up with primary care provider medical oncology and general surgery within the next 7 days Remain compliant with treatment plan and medications Return to the ER if you experience any problems DISPOSITION: Home with services DISCHARGE CONDITION: [Stable]. TIME SPENT ON DISCHARGE: 35 minutes. Vital Signs/I&Os Vital Signs Date Time Temp Pulse Resp B/P (MAP) Pulse Ox O2 Delivery O2 Flow Rate FiO2 03/31/21 09:08 107 148/70 03/31/21 08:00 98.5 16 98 Room Air 03/29/21 16:20 2.0 I&O- Last 24 Hours up to 6 AM 03/31/21 06:00 Intake Total 1610 ml Output Total 900 ml Balance 710 ml Laboratory Data Labs 24H Laboratory Tests 2 03/30/21 14:47: Anion Gap 2L, Glomerular Filtration Rate 33.1L, Calcium Level 9.9 03/31/21 05:08: Anion Gap 3L, Glomerular Filtration Rate 41.3, Calcium Level 9.3, Immature Granulocyte % (Auto) 2.3, Neutrophils (%) (Auto) 69.7H, Lymphocytes (%) (Auto) 16.7L, Monocytes (%) (Auto) 10.4H, Eosinophils (%) (Auto) 0.5, Basophils (%) (Auto) 0.4, Neutrophils # (Auto) 3.9, Lymphocytes # (Auto) 0.9L, Monocytes # (Auto) 0.6, Eosinophils # (Auto) 0.0, Basophils # (Auto) 0.0, Nucleated Red Blood Cells % (auto) 0.0, Magnesium Level 2.0 CBC/BMP Laboratory Tests 03/30/21 14:47 03/31/21 05:08 Microbiology Microbiology 03/23/21 Blood Culture - Final, Complete NO GROWTH AFTER 5 DAYS 03/23/21 Blood Culture - Final, Complete NO GROWTH AFTER 5 DAYS 03/22/21 Urine Culture - Final, Complete 03/21/21 Blood Culture - Final, Complete NO GROWTH AFTER 5 DAYS 03/21/21 Blood Culture - Final, Complete Corynebacterium Sp. Not Jk Discharge Medications Scheduled Amlodipine Besylate (Amlodipine Besylate) 5 Mg Tablet, 10 MG PO DAILY Azithromycin (Azithromycin) 250 Mg Tablet, 250 MG PO DAILY Cefdinir (Cefdinir) 300 Mg Capsule, 300 MG PO DAILY Cholecalciferol (Vitamin D3) (Vitamin D3) 1,000 Unit Tablet, 1,000 UNITS PO DAILY, (Reported) Famotidine (Famotidine) 20 Mg Tablet, 20 MG PO DAILY, (Reported) Ferrous Gluconate (Ferrous Gluconate) 324 Mg Tablet, 324 MG PO QPM, (Reported) Ibandronate Sodium (Ibandronate Sodium) 150 Mg Tablet, 150 MG PO QMONTH, (Reported) Scheduled PRN Albuterol Sulfate (Ventolin Hfa) 18 Gm Hfa.aer.ad, 2 PUFF INH Q4-6HP PRN for wheezing Allergies Coded Allergies: No Known Allergies (Unverified , 02/08/21) JALYN MAYER MD Mar 31, 2021 13:03
[2021-04-03 15:10] LABS: UNFRACTIONATED HEPARIN HI DOSE 1 % (0-20); UNFRACTIONATED HEPARIN LOW DOS <1 % (0-20)
== END 2021-03-31 14:40 | disposition home health service (06) | DRG 823 ==
LOC: EDBD 15:27 → M ED 15:27 → M ED INP 19:07 → ENRESERV 21:37 → M PCU 22:18
PROVIDERS: ADMIT Family Medicine; ATTEND Internal Medicine
PROC: 07B20ZX Excision of Left Neck Lymphatic, Open Approach, Diagnostic (ICD-10-PCS; principal; 2021-03-21)
DX: C86.5 Angioimmunoblastic T-cell lymphoma (principal); I50.31 Acute diastolic (congestive) heart failure; J18.9 Pneumonia, unspecified organism; N17.9 Acute kidney failure, unspecified; E87.2 Acidosis; J90 Pleural effusion, not elsewhere classified; E87.6 Hypokalemia; I11.0 Hypertensive heart disease with heart failure; K21.9 Gastro-esophageal reflux disease without esophagitis; J84.10 Pulmonary fibrosis, unspecified; Z20.822 Contact with and (suspected) exposure to COVID-19; Z79.899 Other long term (current) drug therapy

== ENCOUNTER 2021-04-04 20:44 | Inpatient (IN) | payer MEDICARE ==
[~2021-04-04] VITALS: Ht 149.9 cm; Wt 43.5 kg
[~2021-04-04 20:44] MED LIST changes: +AZIT-12 PO; +CEFD300CAP PO; +FAMO20TA5 PO; +PATIENT COMMENT; +VENTAER INH
[2021-04-04] MEDS ORDERED: PIPERACILLIN/TAZOBACTAM SOD 3.375 GM in D5W MINI-BAG PLUS 50 ML IV ONE (21:10)
[2021-04-04] MEDS ORDERED: NS 1,100 ML in IV 1 EA IV ONE (21:10)
[2021-04-04] MEDS ORDERED: ACETAMINOPHEN TAB 650MG DOSE (2X325MG) PO ONE (21:10)
[2021-04-04] MEDS ORDERED: IBUPROFEN 800 MG TAB PO ONE (21:10)
[2021-04-04 21:32] LABS: BASO % 0.2 % (0.0-1.0); EOS # 0.1 10^3/uL (0.0-0.5); EOS % 0.5 % (0.0-3.0); LYMPH # 0.4 10^3/uL (1.5-5.0); LYMPH % 2.5 % (24.0-44.0); MEAN CORPUSCULAR HEMOGLOBIN 26.7 pg (27.0-33.0); MEAN CORPUSCULAR HGB CONC 30.8 g/dl (32.0-36.5); MEAN CORPUSCULAR VOLUME 86.7 fl (80.0-96.0); MONO # 0.9 10^3/uL (0.0-0.8); MONO % 5.6 % (2.0-8.0); NEUTROPHILS # 14.8 10^3/uL (1.5-8.5); NEUTROPHILS % 89.5 % (36.0-66.0); PLATELET COUNT, AUTOMATED 342 10^3/uL (150-450); WHITE BLOOD COUNT 16.5 10^3/uL (4.0-10.0)
[2021-04-04 22:02] LABS: ALBUMIN 2.1 GM/DL (3.2-5.2); BILIRUBIN,DIRECT 0.2 MG/DL (0.0-0.2); BILIRUBIN,TOTAL 0.5 MG/DL (0.2-1.0); CALCIUM LEVEL 8.6 MG/DL (8.8-10.2); CREATININE FOR GFR 3.2 MG/DL (0.55-1.30); TOTAL PROTEIN 6.4 GM/DL (6.4-8.2)
--- NOTE | 2021-04-04 22:14 | REPVR ---
PROCEDURE INFORMATION: Exam: XR Chest Exam date and time: 04/04/2021 9:35 PM Age: 75 years old Clinical indication: Other: Fever; Additional info: Fever, recent pna TECHNIQUE: Imaging protocol: XR of the chest. Views: 1 view. COMPARISON: CR PORTABLE CHEST X-RAY 03/31/2021 6:43 AM FINDINGS: Lungs: Well inflated lungs with flattened diaphragmatic contours and increased retrosternal airspace consistent with COPD. Increased interstitial markings demonstrated bilaterally, consistent with chronic interstitial changes. No lobar or segmental infiltrates demonstrated. Pleural spaces: Unremarkable. No pleural effusion. No pneumothorax. Heart/Mediastinum: Unremarkable. No cardiomegaly. Vasculature: Uncoiled thoracic aorta. Bones/joints: Osteoporosis. IMPRESSION: 1. COPD. 2. Increased interstitial markings demonstrated bilaterally, consistent with chronic interstitial changes. No lobar or segmental infiltrates demonstrated. Electronically signed by: Asher Eugene On 04/04/2021 22:13:06 PM
[2021-04-05] VITALS (80 sets, daily range): BP systolic 65–134; BP diastolic 36–72
[2021-04-05] MEDS ORDERED: NS 1,000 ML IV ONE (00:30)
[2021-04-05] MEDS ORDERED: ACETAMINOPHEN TAB 650MG DOSE (2X325MG) PO PRN (01:00)
[2021-04-05] MEDS ORDERED: MOM 30ML SUSPENSION UDC PO PRN (01:00)
[2021-04-05] MEDS ORDERED: MAALOX 30 ML SUSP *UDC PO PRN (01:00)
[2021-04-05] MEDS ORDERED: VANCOMYCIN INTERMITTENT/PULSE DOSING BY CLINICAL PHARMACIST PER DOSING PROTOCOL XX SCH (01:20)
[2021-04-05] MEDS ORDERED: PROAAER10 INH (01:27)
[2021-04-05] MEDS ORDERED: AMLO1TAB24 PO (01:27)
[2021-04-05] MEDS ORDERED: PATIENT COMMENT (01:28)
[2021-04-05] MEDS ORDERED: VANCOMYCIN HCL 1,000 MG, VIAL MATE ADAPTER 1 EACH in NS 250 ML IV SCH ×2 (01:30→11:40)
[2021-04-05] MEDS ORDERED: VANCOMYCIN HCL 750 MG, VIAL MATE ADAPTER 1 EACH in NS 250 ML IV ONE (01:30)
[2021-04-05 01:33] LABS: PERCENT SATURATION 10.7 % (13.2-45.0)
[2021-04-05] MEDS: LR 1,000 ML IV SCH ×2 (01:35→03:32)
[2021-04-05] MEDS ORDERED: ALBUTEROL 90 MCG/ACT 8GM HFA INHALER INH PRN (02:15)
--- NOTE | 2021-04-05 02:40 | HPEPDOC ---
[facility] Medical History & Physical Date of Admission Apr 05, 2021 Date of Service: Apr 05, 2021 Primary Care Physician: NICO NIELSON DO Attending Physician: LEILANI JOHNSON MD History and Physical TIME OF SERVICE: 1220am CHIEF COMPLAINT: Altered mental status HISTORY OF PRESENT ILLNESS: Ms. Levin, a 75-year-old female, was last admitted from March 21 to March 31 for management of pneumonia, bilateral pleural effusions and FELIZ. According to Dr. Chavez her neighbor called EMS because the patient was unresponsive. Initial work-up in the ER was remarkable for SIRS without a clear source. At the time of my evaluation the patients mental status had improved. She reports being discharged home with antibiotics, which she has been taking. She subsequently developed diarrhea which she attributed to the antibiotics and reports feeling very weak after which she attributes to being bedbound most of her recent hospital stay. She thinks that she ate yesterday but was unable to provide additional details about the events leading up to her arrival in the ER. 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 HOME MEDICATIONS: Please see below. PHYSICAL EXAMINATION: Vital Signs Date Time Temp Pulse Resp B/P (MAP) Pulse Ox O2 Delivery O2 Flow Rate FiO2 04/04/21 20:52 104.1 128 20 109/54 (72) 96 Room Air GEN: cachectic / well developed/ NAD INTEGUMENT: not flushed/ not jaundice HEENT: lips acyanotic /sclera anicteric CVS: RRR/NMRG/ no lower extremity edema LUNGS: able to speak full sentences without stopping to take a breath / no coughing / lungs are clear to auscultation bilaterally on room air ABDOMEN: soft & not tender with palpation MSK/EXTREMITIES: normocephalic / atraumatic / extremities show muscle wasting NEURO: CN 2-12 are grossly intact / speech is not dysarthric PSYCH: alert and oriented to person place and time/ able to understand and follow all commands LABORATORY DATA: Immature Granulocyte % (Auto) 1.7, Neutrophils (%) (Auto) 89.5H, Lymphocytes (%) (Auto) 2.5L, Monocytes (%) (Auto) 5.6, Eosinophils (%) (Auto) 0.5, Basophils (%) (Auto) 0.2, Neutrophils # (Auto) 14.8H, Lymphocytes # (Auto) 0.4L, Monocytes # (Auto) 0.9H, Eosinophils # (Auto) 0.1, Basophils # (Auto) 0.0, Nucleated Red Blood Cells % (auto) 0.0, Anion Gap 14, Glomerular Filtration Rate 15.0L, Lactic Acid Level 2.2*H, Uric Acid 9.0H, Calcium Level 8.6L, Iron Level 22L, Total Iron Binding Capacity 206L, Transferrin % Saturation 10.7L, Ferritin 1555H, Total Bilirubin 0.5, Direct Bilirubin 0.2, Aspartate Amino Transf (AST/SGOT) 21, Alanine Aminotransferase (ALT/SGPT) 11L, Alkaline Phosphatase 91, Total Protein 6.4, Albumin 2.1L, Albumin/Globulin Ratio 0.5L, Lipase 149 Urine Color KARIN, Urine Appearance TURBIDH, Urine pH 5.0, Urine Specific [place] 1.016, Urine Protein 1+H, Urine Glucose (UA) 1+H, Urine Ketones NEGATIVE, Urine Blood 2+H, Urine Nitrite NEGATIVE, Urine Bilirubin NEGATIVE, Urine Urobilinogen 0.2, Urine Leukocyte Esterase NEGATIVE, Urine WBC (Auto) 1, Urine RBC (Auto) 5H, Urine Hyaline Casts (Auto) 0, Urine Bacteria (Auto) NEGATIVE, Urine Squamous Epithelial Cells 1, Urine Amorphous Sediment SMALLH, Urine Mucus (Auto) SMALL, Urine Sperm (Auto) IMAGING: Chest x-ray IMPRESSION: 1. COPD. 2. Increased interstitial markings demonstrated bilaterally, consistent with chronic interstitial changes. No lobar or segmental infiltrates demonstrated. MICROBIOLOGY: Respiratory panel is negative ASSESSMENT: Ms. Levin is a 75-year-old with HTN, HFpEF, CKD3, idiopathic pulmonary fibrosis, osteoporosis, ACD, DLP, unspecified type of lymphoma, Sarcopenia & remote history of basal cell carcinoma of the left nostril who is admitted for evaluation of SIRS versus septic shock, and FELIZ. PLAN: 1 Suspected Septic Shock Possibly due to C.diff or bacteremia Plan: admit to ICU / telemetry / Meropenem and vancomycin pending blood cx, C.diff & AM cortisol / switch to lactate ringers & start Levophed and consult the Braille Proofreader rehabilitation manager for assistance with placing a line and managing the septic shock/ Acetaminophen PRN for fever / target MAP at of least 70 / place torres & f/u Is and Os with target UOP of at least 0.5 ml/kg/H / f/u FSBS w target serum glucose 140-180 while acutely ill / hold HTN meds & oral iron (while she is acutely ill) 2 FELIZ on CKD 3 FELIZ is likely pre-renal Renal US February 2021 IMPRESSION: Increased renal cortical echogenicity pattern consistent with medical renal disease. Sub cm cyst right kidney. No evidence of hydronephrosis, calculus, or mass. Plan: IVF / f/u ulytes for FENa (if FENa <1% this is likely prerenal, if it is 1 it is equivocal, if it is >3% the patient may have ATN or the FELIZ may be p ost renal) 3 Encephalopathy Possibly due to infection has resolved Plan: frequent neurochecks 4 Acute on Chronic Anemia / bicytopenia She has anemia of chronic disease The acute drop in Hg is likely due to sepsis Plan: f/u CBC & type and screen in case she needs a transfusion / will dc famotidine which can worsen her thrombocytopenia 5 Chronic HFpEF / Essential HTN Clinically dry Plan: hold HTN meds 6 Idiopathic pulmonary fibrosis Plan: c/w albuterol 7 Unspecified type of lymphoma Plan: f/u w Hem/Onc on April 16 8 Geriatric Assessment She is frail & has sarcopenia. Her BMI was 19.5 in January and has dropped to 16.8 today. Her Charlson Comorbidity Index score is 8 points which indicates her 10 year survival is likely 0%. Plan: I will dc famotidine which is on the Beers list of medications to avoid in geriatric patients. The day time team may consider placing a road monkey consult, PT/OT consults and a Palliative Care consult to discuss her goals of care & address her code status. DVT PROPHYLAXIS: Heparin for DVT Px (her Earl score is 7 = pharmacological px is indicated) DISPOSITION: Her prognosis is guarded; there is a high likelihood that she might not survive this hospital admission. She will need at least 2 midnight's stay LATE ENTRY 301AM The patient is alert. Her MAP is 62. I have paged regarding assistance with managing the sepsis and am waiting for him to call back. In the interim I asked the patient's RN Jessica to start the Levophed peripherally. Home Medications Scheduled Amlodipine Besylate (Amlodipine Besylate) 5 Mg Tablet, 10 MG PO DAILY Cholecalciferol (Vitamin D3) (Vitamin D3) 1,000 Unit Tablet, 1,000 UNITS PO DAILY Famotidine (Famotidine) 20 Mg Tablet, 20 MG PO DAILY Ferrous Gluconate (Ferrous Gluconate) 324 Mg Tablet, 324 MG PO QPM Ibandronate Sodium (Ibandronate Sodium) 150 Mg Tablet, 150 MG PO QMONTH Scheduled PRN Albuterol Sulfate (Proair Hfa) 8.5 Gm Hfa.aer.ad, 2 PUFF INH Q4H PRN for SHORTNESS OF BREATH Miscellaneous Medications [Patient Comment] MED REC COMPLETED VIA PREVIOUS DISCHARGE PAPERWORK (03/31/21) Allergies Coded Allergies: No Known Allergies (Unverified , 02/08/21) A-FIB/CHADSVASC A-FIB History Current/History of A-Fib/PAF?: No Current PO Anticoag Therapy: No LEILANI JOHNSON MD Apr 05, 2021 02:40
[2021-04-05] MEDS: PIPERACILLIN/TAZOBACTAM SOD 2.25 GM in D5W MINI-BAG PLUS 50 ML IV SCH ×4 (03:00→21:28)
[2021-04-05] MEDS ORDERED: NOREPINEPHRINE BITARTRATE 8 MG in D5W 492 ML IV SCH ×2 (03:00→18:34)
[2021-04-05 04:21] LABS: CLOSTRIDIUM DIFFICILE PCR NEGATIVE (NEGATIVE)
[2021-04-05] MEDS ORDERED: LR 1,000 ML IV ONE ×2 (07:45→18:40)
[2021-04-05] MEDS ORDERED: ENOXAPARIN 40MG/0.4ML SYRINGE (J1650 PER 10MG) SC SCH (09:00)
[2021-04-05 10:00] LABS: BASO % 0.3 % (0.0-1.0); EOS % 1.8 % (0.0-3.0); HEMATOCRIT 28.7 % (36.0-47.0); HEMOGLOBIN 8.8 g/dl (12.0-15.5); LYMPH # 0.4 10^3/uL (1.5-5.0); LYMPH % 1.3 % (24.0-44.0); MEAN CORPUSCULAR HEMOGLOBIN 26.9 pg (27.0-33.0); MEAN CORPUSCULAR HGB CONC 30.7 g/dl (32.0-36.5); MEAN CORPUSCULAR VOLUME 87.8 fl (80.0-96.0); NEUTROPHILS # 25.5 10^3/uL (1.5-8.5); NEUTROPHILS % 88.5 % (36.0-66.0); PLATELET COUNT, AUTOMATED 390 10^3/uL (150-450); RED BLOOD COUNT 3.27 10^6/uL (4.00-5.40); WHITE BLOOD COUNT 28.8 10^3/uL (4.0-10.0)
[2021-04-05 10:01] LABS: BASO # 0.1 10^3/uL (0.0-0.2); EOS # 0.5 10^3/uL (0.0-0.5); MONO # 1.2 10^3/uL (0.0-0.8)
--- NOTE | 2021-04-05 10:06 | REP ---
INDICATION: septic shock COMPARISON: 03/23/2021 TECHNIQUE: Axial noncontrast images from the thoracic inlet to the upper abdomen with coronal and sagittal reformations. This CT examination was performed using the following dose reduction techniques: Automated exposure control, adjustment of mA and/or kv according to the patient's size, and use of iterative reconstruction technique. FINDINGS: The bilateral pleural effusions along with areas of scattered consolidation and atelectasis (right greater than left) appear slightly improved as compared to most recent prior examination. No pneumothorax. Tracheobronchial tree is grossly patent. Reactive mediastinal and hilar lymph nodes along with significant bilateral axillary adenopathy again noted and unchanged. Further evaluation of the mediastinum demonstrates stable atherosclerotic changes to the thoracic aorta and coronary arteries without aortic aneurysm or cardiomegaly. No significant pericardial effusion. Surrounding musculoskeletal structures are intact and without acute osseous abnormality. IMPRESSION: Mild improvement to the bilateral effusions and parenchymal opacities. No change in the diffuse adenopathy. <Electronically signed by Sacha Bashir > 04/05/21 1002
--- NOTE | 2021-04-05 10:08 | RO ---
OPERATIVE NOTE DATE OF OPERATION: 04/05/2021 PREPROCEDURE DIAGNOSIS: Progressive Hypotension POSTPROCEDURE DIAGNOSIS: Progressive Hypotension PROCEDURE: Central line. SURGEON (ATTENDING PHYSICIAN): Dr. Kain Araujo GOLD WHEEL BLOCKER AND POLISHER PHYSICIAN: Dr. Kitty Olsen ANESTHESIA: 1% Lidocaine INDICATION: Vascular access. CONSENT: Due to emergent nature of the procedure, the procedure was performed emergently and permission was implied. PROCEDURE SUMMARY: A time out was performed. Full sterile technique was maintained throughout the procedure, including surgical cap, mask, protective eyewear, full gown, and sterile gloves. The right femoral groin region was prepped using chlorhexidine scrub and draped in sterile fashion using a full drape. The right femoral vein was identified by palpation. Anesthesia was achieved over the vein using 1% lidocaine. With one hand held over the area of the bounding femoral artery pulses, the introducer needle was inserted medial into the right femoral vein. Dark venous blood was drawn. The syringe was removed and the guidewire was advanced into the introducer needle. The introducer needle was removed over the guidewire. A small incision was made at the skin surface with a scalpel and the introducer needle was exchanged for a dilator over the guidewire. After appropriate double dilation was obtained, the dilator was exchanged over the wire for a triple-lumen catheter. The wire was removed and the catheter was sutured in place. A sterile chlorhexidine-impregnated dressing was placed over the catheter at the insertion site. The patient tolerated the procedure without hemodynamic compromise. At the time of procedure completion, all ports were aspirated and flushed properly. Estimated blood loss was less than 5 mL. [facility]
[2021-04-05 10:11] LABS: INR 1.75; PROTHROMBIN TIME 20.8 SECONDS (12.5-14.3)
[2021-04-05 10:19] LABS: ERYTHROCYTE SEDIMENTATION RATE 46 mm/hr (0-30)
--- NOTE | 2021-04-05 10:20 | REP ---
INDICATION: septic shock COMPARISON: 03/23/2021 TECHNIQUE: Axial noncontrast images from the lung bases to the pubic symphysis with coronal and sagittal reformations. This CT examination was performed using the following dose reduction techniques: Automated exposure control, adjustment of mA and/or kv according to the patient's size, and use of iterative reconstruction technique. FINDINGS: Liver, spleen, pancreas, bilateral adrenal glands and kidneys are essentially normal by noncontrast evaluation. Trace cholelithiasis without evidence for acute cholecystitis. The enteric system is without obstruction or obvious acute inflammatory process. Pelvis demonstrates Evans catheter in collapsed bladder along with stable appearance to the uterus and and adjacent left adnexal cystic structure measuring roughly 6.7 cm maximal diameter and unchanged. Marked diffuse retroperitoneal, pelvic and bilateral inguinal adenopathy is unchanged and most compatible with lymphoma. Small amount of ascites ascites and mesenteric stranding noted throughout the abdomen and pelvis is nonspecific. Musculoskeletal structures demonstrate stable degenerative changes without obvious acute process. IMPRESSION: 1. Stable significant adenopathy along with small amount of ascites and mesenteric stranding compatible with lymphoma. 2. Stable left adnexal cystic structure possibly gynecologic in origin extending from the left ovary. Differential diagnosis may less likely include enlarged necrotic lymph node given the patient's history of known lymphoma. <Electronically signed by Sacha Bashir > 04/05/21 1016
[2021-04-05 10:28] LABS: CALCIUM LEVEL 7.3 MG/DL (8.8-10.2); CREATININE FOR GFR 3.28 MG/DL (0.55-1.30); GLOMERULAR FILTRATION RATE 14.6 (>39); MAGNESIUM LEVEL 1.5 MG/DL (1.8-2.4); PHOSPHORUS LEVEL 4.8 MG/DL (2.5-4.9); POTASSIUM SERUM 3.5 MEQ/L (3.5-5.1)
--- NOTE | 2021-04-05 10:33 | CCN ---
CRITICAL CARE NOTE DATE: 04/05/2021 START TIME: 819 STOP TIME: 949 SUBJECTIVE: I attended Susan Levin here in the Intensive Care Unit. Patient has been examined and chart reviewed. I spoke at length initially with Dr. Abreu and then with Dr. De La O regarding her. I spoke with the nurse at the bedside. In essence, this is a 75-year-old who was discharged from the hospital several days ago for issues which was felt to be pneumonia, renal insufficiency and volume overload in the face of chronic kidney disease. She was brought into the hospital last evening after being found unresponsive by neighbors. She was given aggressive fluids and had improvement in her mental status. She did clear her lactate. She was then able to give a history describing very significant diarrhea which she attributed to antibiotics. The first temperature reportedly was 104.1 on arrival, quickly defervesced and she has been afebrile since. She complains only of abdominal pain. Over the last several hours, she developed progressive hypotension and is now on Levophed. I am asked now to assist with her care. She had peripheral IVs one of which infiltrated. Femoral triple lumen central venous catheter was placed occupying less than 10 minutes time. Please refer to separate dictation for that. PHYSICAL EXAMINATION: VITAL SIGNS: Currently on exam her heart rate is 86, blood pressure 109 systolic on a titrating dose of Levophed and IV Crystalloid. GENERAL: She is awake, alert and appropriate. She appears globally weak. She mainly complains of abdominal pain. HEENT: Pupils react, sclera are clear. Trachea is in the midline. CHEST: Clear anteriorly, diminished at the bases. There are some opening crackles dependently but no focal wheeze, rhonchorous or rubs. No convincing egophony. CARDIAC: Distant, generally regular. EXTREMITIES: Peripheral pulses are diminished but palpable. Negligible edema. ABDOMEN: Soft, there are bowel sounds although mildly hypoactive. She is tender along the right flank without obvious rebound or guarding. EXTREMITIES: No cyanosis or clubbing. NEUROLOGIC: She is awake, alert and appropriate. PSYCHIATRIC: Normal mood and affect. LABORATORY DATA: Most recent laboratories are from last evening, repeats are pending this morning. White blood cell count 16.5, hemoglobin of 8.0, platelet count 342,000, 89% segs, no bands. Sodium on admission 137, potassium 4.0, chloride 101, CO2 22, BUN 39, creatinine 3.2. Glucose 115. Iron and TIBC both low at 22 and 206. Ferritin high at 1555. Liver function studies are reasonable. Albumin depressed at 2.1. Coag's are pending. Chest x-ray last evening was fairly unremarkable. She just had a CT scan of the chest, abdomen and pelvis. Official reports are pending but at least to my eye she has recurrence of her pleural effusions, right greater than left. I do not see significant underlying fibrosis. Abdomen shows a very large gallbladder without obvious stones. There is some mesenteric stranding. In the right along the ascending colon, there is a collection that may be abscess or hematoma and I await the formal report. She was able to clear her lactate but repeat is pending given the fact that this was drawn before her hypotension. MEDICATIONS: The medication list has been reviewed. Currently, she is receiving Levophed, Zosyn, and Normal Saline at the moment. The most pressing problems requiring my presence at the bedside: 1. Hypotension, probably multifactorial. 2. Pleural effusions with known underlying diastolic dysfunction. 3. Acute kidney injury. 4. Suspected septic presentation, now with progressive hypotension. 5. Previous history of hypertension. 6. History of lymphoma, cell type undecided at this point. At this point, we assure adequate volume resuscitation. I do believe she will benefit from transfusion given her hemoglobin of 8. We await the final read on her CT scan. We will check a venous blood gas. Will repeat her lactate. I am in agreement with the broad spectrum antimicrobials pending final evaluation of her CT scan although her abdomen does not suggest significant peritoneal signs. She remains well oxygenated on her room air and her mental status is clearly improved. My hopes is that with volume resuscitation we will be able to wean her Levophed. At this point, she is critically ill. I left the bedside at 0950 hours. A total of 90 minutes of critical care time at the bedside, less than 10 minutes of which involved procedures.
[2021-04-05] MEDS: HEPARIN SOD (PORCINE) 5000UNITS/ML 1ML VIAL/SYRINGE SQ SCH ×2 (10:40→21:00)
[2021-04-05] MEDS: PANTOPRAZOLE 40MG VIAL (C9113 PER 1) IV SCH (10:40)
[2021-04-05] MEDS: NOREPINEPHRINE BITARTRATE 8 MG in D5W 492 ML IV SCH ×3 (10:41→21:55)
[2021-04-05 10:42] LABS: ALBUMIN 1.5 GM/DL (3.2-5.2); BILIRUBIN,TOTAL 0.4 MG/DL (0.2-1.0); C REACTIVE PROTEIN QUANTITATIV 5.97 MG/DL (0.00-0.30); CALCIUM LEVEL 7.6 MG/DL (8.8-10.2); CREATININE FOR GFR 3.23 MG/DL (0.55-1.30); GLOMERULAR FILTRATION RATE 14.8 (>39); MAGNESIUM LEVEL 1.5 MG/DL (1.8-2.4); POTASSIUM SERUM 3.7 MEQ/L (3.5-5.1); TOTAL PROTEIN 4.8 GM/DL (6.4-8.2); TROPONIN I 0.44 NG/ML (< 0.10)
[2021-04-05 11:01] LABS: ABG BASE EXCESS -11.9 (-2.0-2.0); ABG HCO3 11.7 MEQ/L (22.0-26.0); ABG O2 SATURATION 97.4 % (95.0-99.0); ABG PARTIAL PRESSURE CO2 20.9 mmHg (35.0-45.0); ABG PARTIAL PRESSURE O2 101.9 mmHg (75.0-100.0); ABG STANDARD HCO3 15.1 MEQ/L (22.0-26.0); ABG TOTAL CO2 12.3 MEQ/L (23.0-31.0); ABG pH (ARTERIAL) 7.366 UNITS (7.350-7.450)
[2021-04-05 11:28] LABS: CORTISOL AM 43.8 UG/DL (4.3-22.4)
[2021-04-05 11:29] LABS: PTH INTACT 20.2 PG/ML (18.5-88.0)
--- NOTE | 2021-04-05 11:30 | IPNPDOC ---
Date Seen The patient was seen on 04/05/21. Progress Note SUBJECTIVE: Patient was seen and examined at bedside. States she is alert and oriented and able to answer my questions. Presently hypotensive on peripherally, low-fat map of approximately 60. Patient will be given additional 1 L of LR boluses and maintain on maintenance fluids. I have spoken to Dr. Araujo requested and dizziness consult as well as placement for central line. Patient denies any present or past chest pain leading up to the admission. He does have endorse occasional diarrhea after starting her antibiotics. During the past admission. C. difficile screen has been negative. She is currently on IV Zosyn. OBJECTIVE PHYSICAL EXAMINATION: VITAL SIGNS: please see below General: NAD, comfortable HEENT: PERRLA, EOMI, sclerae clear Neck: supple, normal ROM, no JVD Respiratory: lungs CTAB, no wheeze, no rales, no crackles CVS: RRR, normal S1, S2, no murmurs Abdo: soft, no masses, no hepatosplenomegaly, BS+, no rebound tenderness Extremities: no edema, pulses 2+ MSK: no joint deformities, normal ROM Neuro: no focal neuro deficits, moving all 4 extremities, CN2-12 intact. Strengt h 5/5 in all 4 extremities. No nystagmus. Psych: calm, cooperative, AAO x 3 LABORATORY DATA, IMAGING STUDIES, MICROBIOLOGY: Please see below. Echocardiogram: Ordered on 04/05/21. DVT prophylaxis ordered?: SCDs and teds ASSESSMENT AND PLAN: This is a 75 female with past medical history of COPD 3. Chronic diastolic heart failure, idiopathic pulmonary fibrosis, suspected lymphoma, currently undergoing workup, essential hypertension, recently admitted from March 21 of March 3 for the management of pneumonia and bilateral pleural effusions as well as acute kidney injury. The Patient was discharged home on by mouth antibiotics. Was found unresponsive by neighbors called 911. Diagnosed with septic shock. Patient admitted to ICU for management of septic shock due to unknown source, as well as acute renal failure. PROBLEMS: #Septick shock, source unclear: possible intrabdominal/pelvic abscess vs c diff colitis - admitted with hypotension, fever, elevated lactic acid. - presently on levophed via peripheral line, last MAP 59. - placed electrician technician consult with Dr. Araujo, recommendations and assistance greatly appreciated - give additional 1L LR bolus (total 3L), c/w maintenance LR - s/p Central Line placement - f/u blood cultures. UA not suggestive of infection - presently oliguric, made ~[address] torres for critical monitoring. - order non contrast CT chest and CT abdo pelvis. - Chest imaging shows improvement in parenchymal opacities and bilateral pleural effusions from prior - CT abdo pelvis shows stable 6.7 cm L adnexal structure, possible extending from L ovary, possible necrotic lymph node (known hx of lymphoma) - c/w IV zosyn and vancomycin - will start on PO vancomycin 125 mg PO q6h preemptively given recent use of Abx, and hospitalization, with diarrhea x 3 today. - Dr. Chapman has been consulted. Recs are greatly appreciated. Acute Renal Failure upon CKD3 - in setting of septic shock. - Cr on 10/01/20, 1.33 - Cr on admission 3.28 - oliguiria, made ~150 cc urine overnight - s/p 800 mg ibuprofen in ER - insert torres catheter - c/w fluid resuscitation, s/p 3L LR, maintenance LR at 125 cc/r - order renal US - nephrology consult placed Elevated troponin - Trop 0.44, no chest pain, no ST elevation on EKG - in setting of septic shock, anemia - will c/w IVF, transfuse 2 units of prbc - cardiology consult with Dr. Polk placed, for now defer ASA, AC due to anemia - will cycle cardiac enzyme and EKGs - obtain stat ECHO L adnexal mass - possible abscess? source of sepsis - CT abdo pelvis showing 6.7 L adnexal mass, possible ovarian vs LN - d/w Dr. Mera, SENIOR SUSTAINABILITY ADVISOR consult placed. Recommendations are greatly appreciated. - will c/w vanc and zosyn at this time Lymphoma: - LN biopsy 02/12/21 suspicion for lymphona, possible T cell - excisional bx on 03/29/21 currently pending, patient has follow up [facility] oncology - possibly immunocompromised, setting of septic shock on this admission Hx of HFpEF - last echo 03/19 - G1DD. No RWMA. - moderate pulmonary HTN - mod AV sclerosis wihtout stenosis. - small posterior pericardial effusion and smaller anterior effusion 4 mmg anteriorl and 2 mm small collection behind R atria. No cardiac chamber compression, or evidence of tamponade. HTN - hold amlodipine Idiopathic pulm fibrosis - f/u pulm OP GI ppx - pantoprazole IV 40 mg daily DVT ppx: SCDs and TEDs. Avoid chemoppx at this time. VS, I&O, 24H, Fishbone Vital Signs/I&O Vital Signs Date Time Temp Pulse Resp B/P (MAP) Pulse Ox O2 Delivery O2 Flow Rate FiO2 04/05/21 10:41 125/58 04/05/21 08:15 91 100 Room Air 04/05/21 08:09 96.7 16 I&O- Last 24 Hours up to 6 AM 04/05/21 05:59 Intake Total 1250 ml Output Total 15 ml Balance 1235 ml Laboratory Data 24H LABS Laboratory Tests 2 04/04/21 21:13: Immature Granulocyte % (Auto) 1.7, Neutrophils (%) (Auto) 89.5H, Lymphocytes (%) (Auto) 2.5L, Monocytes (%) (Auto) 5.6, Eosinophils (%) (Auto) 0.5, Basophils (%) (Auto) 0.2, Neutrophils # (Auto) 14.8H, Lymphocytes # (Auto) 0.4L, Monocytes # (Auto) 0.9H, Eosinophils # (Auto) 0.1, Basophils # (Auto) 0.0, Nucleated Red Blood Cells % (auto) 0.0, Anion Gap 14, Glomerular Filtration Rate 15.0L, Lactic Acid Level 2.2*H, Uric Acid 9.0H, Calcium Level 8.6L, Iron Level 22L, Total Iron Binding Capacity 206L, Transferrin % Saturation 10.7L, Ferritin 1555H, Total Bilirubin 0.5, Direct Bilirubin 0.2, Aspartate Amino Transf (AST/SGOT) 21, Alanine Aminotransferase (ALT/SGPT) 11L, Alkaline Phosphatase 91, Total Protein 6.4, Albumin 2.1L, Albumin/Globulin Ratio 0.5L, Lipase 149 04/04/21 23:25: Urine Color KARIN, Urine Appearance TURBIDH, Urine pH 5.0, Urine Specific [place] 1.016, Urine Protein 1+H, Urine Glucose (UA) 1+H, Urine Ketones NEGATIVE, Urine Blood 2+H, Urine Nitrite NEGATIVE, Urine Bilirubin NEGATIVE, Urine Urobilinogen 0.2, Urine Leukocyte Esterase NEGATIVE, Urine WBC (Auto) 1, Urine RBC (Auto) 5H, Urine Hyaline Casts (Auto) 0, Urine Bacteria (Auto) NEGATIVE, Urine Squamous Epithelial Cells 1, Urine Amorphous Sediment SMALLH, Urine Mucus (Auto) SMALL, Urine Sperm (Auto) 04/05/21 02:11: Lactic Acid Level 2.0 04/05/21 03:32: Clostridium difficile 027-NAP1-B1 PRESUMPTIVE NEGATIVE, Clostridium difficile Toxin (PCR) NEGATIVE 04/05/21 09:00: 04/05/21 09:13: Immature Granulocyte % (Auto) 4.1H, Neutrophils (%) (Auto) 88.5H, Lymphocytes (%) (Auto) 1.3L, Monocytes (%) (Auto) 4.0, Eosinophils (%) (Auto) 1.8, Basophils (%) (Auto) 0.3, Neutrophils # (Auto) 25.5H, Lymphocytes # (Auto) 0.4L, Monocytes # (Auto) 1.2H, Eosinophils # (Auto) 0.5, Basophils # (Auto) 0.1, Nucleated Red Blood Cells % (auto) 0.0, Erythrocyte Sedimentation Rate 46H, Prothrombin Time 20.8H, Prothromb Time International Ratio 1.75 04/05/21 09:14: Anion Gap 20H, Glomerular Filtration Rate 14.8L, Calcium Level 7.6L, Phosphorus Level 4.8, Magnesium Level 1.5L, Total Bilirubin 0.4, Aspartate Amino Transf (AST/SGOT) 18, Alanine Aminotransferase (ALT/SGPT) 8L, Alkaline Phosphatase 82, Total Creatine Kinase 197H, Troponin I 0.44H, C-Reactive Protein, Quantitative 5.97H, Total Protein 4.8#L, Albumin 1.5#L, Albumin/Globulin Ratio 0.5L, Parathyroid Hormone (Intact) 20.2, Cortisol AM Sample 43.8H 04/05/21 10:45: Blood Gas Bicarbonate Standard 15.1L, Arterial Blood pH 7.366, Arterial Blood Partial Pressure CO2 20.9L, Arterial Blood Partial Pressure O2 101.9H, Arterial Blood Total CO2 12.3L, Arterial Blood HCO3 11.7L, Arterial Blood Base Excess - 11.9L, Arterial Blood Oxygen Saturation 97.4 04/05/21 11:22: CBC/BMP Laboratory Tests 04/04/21 21:13 04/05/21 09:13 04/05/21 09:14 Microbiology Microbiology 04/05/21 Stool Occult Blood (NIKKI) - Final, Complete 04/04/21 Respiratory Virus Panel (PCR) (NIKKI) - Final, Complete 04/04/21 Blood Culture, Received Pending 04/04/21 Blood Culture, Received Pending SERGIO JOHANSEN MD Apr 05, 2021 11:30
--- NOTE | 2021-04-05 11:35 | REP ---
INDICATION: acute renal failure. COMPARISON: 03/21/2021 TECHNIQUE: Bilateral renal ultrasound FINDINGS: Multiple ultrasonographic images of the right kidney show the right kidney to measure 8 x 4.6 x 3.5 cm. The renal cortical echotexture is diffusely increased status quo. There are no masses. Subcentimeter sized cysts status quo. There is poor corticomedullary differentiation. There is no hydronephrosis. There are no perinephric fluid collections. Multiple ultrasonographic images of the left kidney show the left kidney to measure 9 x 4.2 x 4.3 cm. The renal cortical echotexture is diffusely increased status quo. There are no masses. Subcentimeter sized cysts status quo. There is poor corticomedullary differentiation. There is no hydronephrosis. There are no perinephric fluid collections. A trace amount of free fluid was seen in the abdomen. IMPRESSION: Evidence of medical renal disease and tiny subcentimeter sized cysts bilaterally as described above and unchanged from 03/21/2021. <Electronically signed by Paddy Young > 04/05/21 [id number]
[2021-04-05] MEDS: MAG SULF 1GM/100ML (MAG RUN) 1 GM in IV 1 EA IV SCH ×2 (12:02→13:09)
[2021-04-05] MEDS: SODIUM BICARBONATE 75 MEQ in NS 0.45% 1,000 ML IV SCH ×2 (14:10→23:56)
[2021-04-05 14:15] LABS: TROPONIN I 0.28 NG/ML (< 0.10); VANCOMYCIN RANDOM 14.7 UG/ML
[2021-04-05 15:48] LABS: ABG BASE EXCESS -10.9 (-2.0-2.0); ABG HCO3 12.7 MEQ/L (22.0-26.0); ABG O2 SATURATION 96.8 % (95.0-99.0); ABG PARTIAL PRESSURE CO2 22.9 mmHg (35.0-45.0); ABG PARTIAL PRESSURE O2 92.7 mmHg (75.0-100.0); ABG STANDARD HCO3 15.8 MEQ/L (22.0-26.0); ABG TOTAL CO2 13.4 MEQ/L (23.0-31.0); ABG pH (ARTERIAL) 7.362 UNITS (7.350-7.450)
--- NOTE | 2021-04-05 15:53 | SMCUROLCON ---
Urology Consultation General Date of Consultation 04/05/21 Reason For Consultation asked to place urethral catheter History of Present Illness The patient is a -year-old with a past medical history for . Medications Current Medications Current Medications Medications (Trade) Dose Ordered Sig/Nick Route PRN Reason Start Time Stop Time Status Last Admin Dose Admin Acetaminophen (Tylenol Tab) 650 mg Q4H PRN PO MILD PAIN or TEMP > 101 04/05/21 01:00 Al Hydrox/Mg Hydrox/Simethicone (Mylanta) 30 ml DAILY PRN PO DYSPEPSIA 04/05/21 01:00 Albuterol Sulfate (Proventil, Ventolin Hfa) 2 puff Q4H PRN INH SHORTNESS OF BREATH 04/05/21 02:15 Enoxaparin Sodium (Lovenox) 40 mg DAILY SC 04/05/21 09:00 04/05/21 02:30 DC Heparin Sodium (Porcine) (Heparin) 5,000 units Q12H SQ 04/05/21 09:00 04/05/21 10:40 Home Med (Med Rec Complete!) ASDIRECTED XX 04/05/21 01:30 04/05/21 01:42 DC Lactated Ringer's 1,000 ml @ 125 mls/hr Q8H IV 04/05/21 01:05 04/05/21 12:33 DC 04/05/21 03:32 Magnesium Hydroxide (Milk Of Magnesia) 30 ml DAILY PRN PO CONSTIPATION 04/05/21 01:00 Magnesium Sulfate/ Dextrose 1 gm/IV Miscellaneous Supplies 100 ml @ 100 mls/hr Q1H IV 04/05/21 12:00 04/05/21 13:59 DC 04/05/21 13:09 Non-Formulary Medication ( See Comment Field Below ) [facility]. DOSING ASDIRECTED XX 04/05/21 01:20 Norepinephrine Bitartrate 8 mg/ Dextrose 500 ml @ 82.5 mls/hr Q6H4M IV 04/05/21 03:00 04/05/21 07:04 DC 04/05/21 03:30 Norepinephrine Bitartrate 8 mg/ Dextrose 500 ml @ 82.5 mls/hr Q6H4M IV 04/05/21 09:00 04/05/21 10:41 Pantoprazole Sodium (Protonix) 40 mg DAILY IV 04/05/21 08:00 04/05/21 10:40 Piperacillin Sod/ Tazobactam Sod 2.25 gm/Dextrose 50 ml @ 50 mls/hr Q6H IV 04/05/21 03:00 04/05/21 15:36 Sodium Bicarbonate 75 meq/Sodium Chloride 1,075 ml @ 120 mls/hr Q8H58M IV 04/05/21 16:00 04/05/21 14:10 Vancomycin HCl (First-Vancomycin 50(Firvanq)- 250mg/5ml) 125 mg Q6H PO 04/05/21 18:00 Vancomycin HCl 1000 mg/IV Miscellaneous Supplies 1 each/ Sodium Chloride 270 ml @ 270 mls/hr Q12H IV 04/05/21 01:30 04/05/21 04:53 DC Vancomycin HCl 1000 mg/IV Miscellaneous Supplies 1 each/ Sodium Chloride 270 ml @ 270 mls/hr Q12H IV 04/05/21 11:40 04/05/21 15:11 DC Allergies Allergies: Coded Allergies: No Known Allergies (Unverified , 02/08/21) Vital Signs/I&O Vital Signs Date Time Temp Pulse Resp B/P (MAP) Pulse Ox O2 Delivery O2 Flow Rate FiO2 04/05/21 15:32 106/58 04/05/21 15:19 96.5 83 20 99 Room Air I&O- Last 24 Hours up to 6 AM 04/05/21 05:59 Intake Total 1250 ml Output Total 15 ml Balance 1235 ml Laboratory Data 24H Labs Laboratory Tests 2 04/04/21 21:13: Immature Granulocyte % (Auto) 1.7, Neutrophils (%) (Auto) 89.5H, Lymphocytes (%) (Auto) 2.5L, Monocytes (%) (Auto) 5.6, Eosinophils (%) (Auto) 0.5, Basophils (%) (Auto) 0.2, Neutrophils # (Auto) 14.8H, Lymphocytes # (Auto) 0.4L, Monocytes # (Auto) 0.9H, Eosinophils # (Auto) 0.1, Basophils # (Auto) 0.0, Nucleated Red Blood Cells % (auto) 0.0, Anion Gap 14, Glomerular Filtration Rate 15.0L, Lactic Acid Level 2.2*H, Uric Acid 9.0H, Calcium Level 8.6L, Iron Level 22L, Total Iron Binding Capacity 206L, Transferrin % Saturation 10.7L, Ferritin 1555H, Total Bilirubin 0.5, Direct Bilirubin 0.2, Aspartate Amino Transf (AST/SGOT) 21, Alanine Aminotransferase (ALT/SGPT) 11L, Alkaline Phosphatase 91, Total Protein 6.4, Albumin 2.1L, Albumin/Globulin Ratio 0.5L, Lipase 149 04/04/21 23:25: Urine Color KARIN, Urine Appearance TURBIDH, Urine pH 5.0, Urine Specific [place] 1.016, Urine Protein 1+H, Urine Glucose (UA) 1+H, Urine Ketones NEGATIVE, Urine Blood 2+H, Urine Nitrite NEGATIVE, Urine Bilirubin NEGATIVE, Ur ine Urobilinogen 0.2, Urine Leukocyte Esterase NEGATIVE, Urine WBC (Auto) 1, Urine RBC (Auto) 5H, Urine Hyaline Casts (Auto) 0, Urine Bacteria (Auto) NEGATIVE, Urine Squamous Epithelial Cells 1, Urine Amorphous Sediment SMALLH, Urine Mucus (Auto) SMALL, Urine Sperm (Auto) 04/05/21 02:11: Lactic Acid Level 2.0 04/05/21 03:32: Clostridium difficile 027-NAP1-B1 PRESUMPTIVE NEGATIVE, Clostridium difficile Toxin (PCR) NEGATIVE 04/05/21 09:00: Methicillin-Resist S.aureus DNA PCR NOT DETECTED 04/05/21 09:13: Immature Granulocyte % (Auto) 4.1H, Neutrophils (%) (Auto) 88.5H, Lymphocytes (%) (Auto) 1.3L, Monocytes (%) (Auto) 4.0, Eosinophils (%) (Auto) 1.8, Basophils (%) (Auto) 0.3, Neutrophils # (Auto) 25.5H, Lymphocytes # (Auto) 0.4L, Monocytes # (Auto) 1.2H, Eosinophils # (Auto) 0.5, Basophils # (Auto) 0.1, Nucleated Red Blood Cells % (auto) 0.0, Erythrocyte Sedimentation Rate 46H, Prothrombin Time 20.8H, Prothromb Time International Ratio 1.75 04/05/21 09:14: Anion Gap 20H, Glomerular Filtration Rate 14.8L, Calcium Level 7.6L, Phosphorus Level 4.8, Magnesium Level 1.5L, Total Bilirubin 0.4, Aspartate Amino Transf (AST/SGOT) 18, Alanine Aminotransferase (ALT/SGPT) 8L, Alkaline Phosphatase 82, Total Creatine Kinase 197H, Troponin I 0.44H, C-Reactive Protein, Quantitative 5.97H, Total Protein 4.8#L, Albumin 1.5#L, Albumin/Globulin Ratio 0.5L, Procalcitonin 45.36, Parathyroid Hormone (Intact) 20.2, Cortisol AM Sample 43.8H 04/05/21 10:45: Blood Gas Bicarbonate Standard 15.1L, Arterial Blood pH 7.366, Arterial Blood Partial Pressure CO2 20.9L, Arterial Blood Partial Pressure O2 101.9H, Arterial Blood Total CO2 12.3L, Arterial Blood HCO3 11.7L, Arterial Blood Base Excess - 11.9L, Arterial Blood Oxygen Saturation 97.4 04/05/21 11:22: Lactic Acid Level 8.4*H 04/05/21 12:07: Bedside Glucose (Misc Panel) 173H 04/05/21 13:29: Troponin I 0.28#H, Random Vancomycin Level 14.7 04/05/21 15:30: Blood Gas Bicarbonate Standard 15.8L, Arterial Blood pH 7.362, Arterial Blood Partial Pressure CO2 22.9L, Arterial Blood Partial Pressure O2 92.7, Arterial Blood Total CO2 13.4L, Arterial Blood HCO3 12.7L, Arterial Blood Base Excess - 10.9L, Arterial Blood Oxygen Saturation 96.8 CBC/BMP Laboratory Tests 04/04/21 21:13 04/05/21 09:13 04/05/21 09:14 Microbiology Microbiology 04/05/21 Stool Occult Blood (NIKKI) - Final, Complete 04/04/21 Respiratory Virus Panel (PCR) (NIKKI) - Final, Complete 04/04/21 Blood Culture, Received Pending 04/04/21 Blood Culture, Received Pending Assessment 16fr urethral catheter placed without difficulty using sterile technique remove catheter when no longer needed thank you IVETH GHOSH MD Apr 05, 2021 15:53
--- NOTE | 2021-04-05 18:46 | REP ---
INDICATION: line placement COMPARISON: 04/04/2021 TECHNIQUE: Portable AP view of the chest FINDINGS: Right subclavian catheter with tip in the SVC. The mediastinum and cardiac silhouette are stable and within normal limits for portable technique. The lung dinh demonstrate stable chronic changes with superimposed lower lobe opacities suggesting elements of atelectasis/consolidation as well as possible layering right effusion. No pneumothorax. Skeletal structures are intact. IMPRESSION: 1. Right subclavian catheter with tip in the SVC. 2. Relatively new lower lobe consolidations/atelectasis and suspected layering right effusion <Electronically signed by Sacha Bashir > 04/05/21 [id number]
--- NOTE | 2021-04-05 19:09 | ECHO ---
ECHOCARDIOGRAM DATE OF PROCEDURE: 04/05/2021 Age: 75 Gender: Female Height: 150 cm Weight: 37 kg REFERRING PHYSICIAN: Cristóbal De La O MD. INDICATION: Altered mental status, sepsis. MEASUREMENTS: IVS 0.8 cm LV 3.7 cm LVPW 0.8 cm LA 1.9 cm Aorta 3.1 cm RV 1.7 cm Mitral E wave velocity 69 cm/s Mitral A wave 81 cm/s E prime septal 6.2 cm/s E prime lateral 7.2 cm/s Left atrial volume index 27 FINDINGS: This study is of good technical quality. Underlying sinus rhythm with narrow QRS complex. Left ventricle is of normal size and systolic function, estimated LVEF approximately 60% to 65%. No segmental wall motion abnormalities are noted. Right ventricle is also normal size and systolic function. Both atria appear normal. There are minimal degenerative abnormalities of the aortic and mitral valves, but otherwise they are anatomically intact and mobility of leaflets is preserved. Tricuspid and pulmonic valves appear normal. No pericardial effusion is noted. Inferior vena cava is of normal size and appropriately collapses with inspiration indicative of normal central venous pressure. Aortic root and abdominal aorta appear normal. Aortic arch was not well visualized. Doppler interrogation reveals competent aortic valve. There is trivial mitral and tricuspid insufficiency. Mitral inflow pattern and tissue Doppler imaging of mitral annulus revealed grade 1 diastolic dysfunction. CONCLUSIONS: 1. Study is of good technical quality, underlying sinus rhythm. 2. Normal LV size with normal LV systolic function and grade 1 diastolic dysfunction. 3. No significant valvular disease. 4. Normal central venous pressure. 5. Unable to estimate pulmonary artery pressure, but no signs to suggest pulmonary hypertension. 6. Essentially normal echocardiogram for patient's age.
--- NOTE | 2021-04-05 19:21 | RO ---
OPERATIVE NOTE DATE OF OPERATION: 04/05/2021 PREOPERATIVE DIAGNOSIS: Hypotension. POSTOPERATIVE DIAGNOSIS: Hypotension. PROCEDURE PERFORMED: Right subclavian CVP placement. SURGEON: Mauricio Magaña DO. HYDRAULIC ROCK DRILL OPERATOR: None. ANESTHESIA: 1% Lidocaine. DESCRIPTION OF PROCEDURE: The patient was seen in the intensive care unit hypotensive requiring pressor therapy. Previously placed IVs became dislodged. The skin overlying the right subclavian vein was prepped with ChloraPrep and draped in a sterile fashion. A 25-gauge needle was used to raise a skin wheel with 1% Lidocaine. Thereafter, a 17-gauge introducer needle was placed in through the skin and into the right subclavian vein. Free return of venous blood was obtained. A vascular tip guidewire was advanced. A small incision was made adjacent to the guidewire and a triple lumen catheter placed over the guidewire to a distance of 16 cm. The catheter was sewn in place and a sterile dressing applied. Postprocedure chest x-ray confirmed adequate placement. There were no complications. GARRICK
[2021-04-05 19:29] LABS: CALCIUM LEVEL 7.5 MG/DL (8.8-10.2); CREATININE FOR GFR 3.35 MG/DL (0.55-1.30); GLOMERULAR FILTRATION RATE 14.2 (>39)
[2021-04-05 20:38] LABS: HEMATOCRIT 33.3 % (36.0-47.0); HEMOGLOBIN 11.1 g/dl (12.0-15.5); MEAN CORPUSCULAR HEMOGLOBIN 28.1 pg (27.0-33.0); MEAN CORPUSCULAR HGB CONC 33.3 g/dl (32.0-36.5); MEAN CORPUSCULAR VOLUME 84.3 fl (80.0-96.0); PLATELET COUNT, AUTOMATED 174 10^3/uL (150-450); RED BLOOD COUNT 3.95 10^6/uL (4.00-5.40); WHITE BLOOD COUNT 16.2 10^3/uL (4.0-10.0)
--- NOTE | 2021-04-05 20:44 | CR.PDOC ---
General Date of Consultation: Apr 05, 2021 Consultation REASON FOR CONSULTATION/CHIEF COMPLAINT: Altered mental status. HISTORY OF PRESENT ILLNESS: 75-year-old female presents to the emergency room after being found unresponsive at home. She been recently admitted to the hospital for pneumonia and was on antibiotics. She is currently being worked up for probable lymphoma; a lymph node biopsy is pending. Her mental status improved after IV hydration in the hospital. She denies significant abdominal pain. CT scan of the abdomen showed a 6 cm mass in the left side of the pelvis. There is a feeling by the hospital team that she may have sepsis. They are searching for a cause of sepsis. ALLERGIES: Please see below. HOME MEDICATIONS: Please see below. PAST MEDICAL/ SURGICAL HISTORY: Essential hypertension, CKD3, chronic HFpEF, idiopathic pulmonary fibrosis, osteoporosis, Anemia of Chronic disease, dyslipidemia, unspecified type of lymphoma (the final path report is pending, she has appointment scheduled with her oncologist as scheduled for April 16), Sarcopenia/protein calorie malnutrition (BMI of 16.9), partial right th yroidectomy, surgical excision of basal cell carcinoma of the left nostril SOCIAL HISTORY: She has 2 daughters and 1 son, does not smoke, does not drink, does not use recreational drugs and lives alone FAMILY HISTORY: Father is history of heart disease. Mother history of cerebra l hemorrhage SOCIAL HISTORY: Patient lives alone. She denies cigarettes alcohol or drug use PHYSICAL EXAMINATION: GEN: cachectic / well developed/ NAD INTEGUMENT: not flushed/ not jaundice HEENT: lips acyanotic /sclera anicteric CVS: RRR/NMRG/ no lower extremity edema LUNGS: able to speak full sentences without stopping to take a breath / no coughing / lungs are clear to auscultation bilaterally on room air ABDOMEN: soft & not tender with palpation MSK/EXTREMITIES: normocephalic / atraumatic / extremities show muscle wasting NEURO: CN 2-12 are grossly intact / speech is not dysarthric PSYCH: alert and oriented to person place and time/ able to understand and follow all commands LABORATORY DATA: Please see below. ASSESSMENT/PLAN: 75-year-old with altered mental status secondary to sepsis and probable lymphoma. 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 There are no suspicious findings for abscess. I do not believe this is the cause of sepsis. No indication for surgical intervention for left adnexal mass at this time. The adnexal mass does not have a characteristic appearance of an enlarged lymph node. Is likely unrelated to her generalized lymphadenopathy. We will continue to follow during the hospitalization to see if anything changes. Vital Signs/I&O Vital Signs Date Time Temp Pulse Resp B/P (MAP) Pulse Ox O2 Delivery O2 Flow Rate FiO2 04/05/21 19:00 100 114/55 (74) 97 Room Air 04/05/21 16:09 97.3 20 I&O- Last 24 Hours up to 6 AM 04/05/21 06:00 Intake Total 1250 ml Output Total 15 ml Balance 1235 ml Laboratory Data Labs 24H Laboratory Tests 2 04/04/21 21:13: Immature Granulocyte % (Auto) 1.7, Neutrophils (%) (Auto) 89.5H, Lymphocytes (%) (Auto) 2.5L, Monocytes (%) (Auto) 5.6, Eosinophils (%) (Auto) 0.5, Basophils (%) (Auto) 0.2, Neutrophils # (Auto) 14.8H, Lymphocytes # (Auto) 0.4L, Monocytes # (Auto) 0.9H, Eosinophils # (Auto) 0.1, Basophils # (Auto) 0.0, Nucleated Red Blood Cells % (auto) 0.0, Anion Gap 14, Glomerular Filtration Rate 15.0L, Lactic Acid Level 2.2*H, Uric Acid 9.0H, Calcium Level 8.6L, Iron Level 22L, Total Iron Binding Capacity 206L, Transferrin % Saturation 10.7L, Ferritin 1555H, Total Bilirubin 0.5, Direct Bilirubin 0.2, Aspartate Amino Transf (AST/SGOT) 21, Alanine Aminotransferase (ALT/SGPT) 11L, Alkaline Phosphatase 91, Total Protein 6.4, Albumin 2.1L, Albumin/Globulin Ratio 0.5L, Lipase 149 04/04/21 23:25: Urine Color KARIN, Urine Appearance TURBIDH, Urine pH 5.0, Urine Specific [place] 1.016, Urine Protein 1+H, Urine Glucose (UA) 1+H, Urine Ketones NEGATIVE, Urine Blood 2+H, Urine Nitrite NEGATIVE, Urine Bilirubin NEGATIVE, Urine Urobilinogen 0.2, Urine Leukocyte Esterase NEGATIVE, Urine WBC (Auto) 1, Urine RBC (Auto) 5H, Urine Hyaline Casts (Auto) 0, Urine Bacteria (Auto) NEGATIVE, Urine Squamous Epithelial Cells 1, Urine Amorphous Sediment SMALLH, Urine Mucus (Auto) SMALL, Urine Sperm (Auto) 04/05/21 02:11: Lactic Acid Level 2.0 04/05/21 03:32: Clostridium difficile [id number] PRESUMPTIVE NEGATIVE, Clostridium difficile Toxin (PCR) NEGATIVE 04/05/21 09:00: Methicillin-Resist S.aureus DNA PCR NOT DETECTED 04/05/21 09:13: Immature Granulocyte % (Auto) 4.1H, Neutrophils (%) (Auto) 88.5H, Lymphocytes (%) (Auto) 1.3L, Monocytes (%) (Auto) 4.0, Eosinophils (%) (Auto) 1.8, Basophils (%) (Auto) 0.3, Neutrophils # (Auto) 25.5H, Lymphocytes # (Auto) 0.4L, Monocytes # (Auto) 1.2H, Eosinophils # (Auto) 0.5, Basophils # (Auto) 0.1, Nucleated Red Blood Cells % (auto) 0.0, Erythrocyte Sedimentation Rate 46H, Prothrombin Time 20.8H, Prothromb Time International Ratio 1.75 04/05/21 09:14: Anion Gap 20H, Glomerular Filtration Rate 14.8L, Calcium Level 7.6L, Phosphorus Level 4.8, Magnesium Level 1.5L, Total Bilirubin 0.4, Aspartate Amino Transf (AST/SGOT) 18, Alanine Aminotransferase (ALT/SGPT) 8L, Alkaline Phosphatase 82, Total Creatine Kinase 197H, Troponin I 0.44H, C-Reactive Protein, Quantitative 5.97H, Total Protein 4.8#L, Albumin 1.5#L, Albumin/Globulin Ratio 0.5L, Procalcitonin 45.36, Parathyroid Hormone (Intact) 20.2, Cortisol AM Sample 43.8H 04/05/21 10:45: Blood Gas Bicarbonate Standard 15.1L, Arterial Blood pH 7.366, Arterial Blood Partial Pressure CO2 20.9L, Arterial Blood Partial Pressure O2 101.9H, Arterial Blood Total CO2 12.3L, Arterial Blood HCO3 11.7L, Arterial Blood Base Excess - 11.9L, Arterial Blood Oxygen Saturation 97.4 04/05/21 11:22: Lactic Acid Level 8.4*H 04/05/21 12:07: Bedside Glucose (Misc Panel) 173H 04/05/21 13:29: Troponin I 0.28#H, Random Vancomycin Level 14.7 04/05/21 15:30: Blood Gas Bicarbonate Standard 15.8L, Arterial Blood pH 7.362, Arterial Blood Partial Pressure CO2 22.9L, Arterial Blood Partial Pressure O2 92.7, Arterial Blood Total CO2 13.4L, Arterial Blood HCO3 12.7L, Arterial Blood Base Excess - 10.9L, Arterial Blood Oxygen Saturation 96.8 04/05/21 16:35: Lactic Acid Level 7.1*H, Troponin I 0.23H 04/05/21 17:55: Bedside Glucose (Misc Panel) 124H 04/05/21 18:54: Anion Gap 18H, Glomerular Filtration Rate 14.2L, Calcium Level 7.5L 04/05/21 20:19: CBC/BMP Laboratory Tests 04/04/21 21:13 04/05/21 09:13 04/05/21 09:14 04/05/21 18:54 Microbiology Microbiology 04/05/21 Blood Culture, Received Pending 04/05/21 Blood Culture, Received Pending 04/05/21 Stool Occult Blood (NIKKI) - Final, Complete 04/04/21 Respiratory Virus Panel (PCR) (NIKKI) - Final, Complete 04/04/21 Blood Culture, Received Pending 04/04/21 Blood Culture - Preliminary, Resulted Allergies Coded Allergies: No Known Allergies (Unverified , 02/08/21) Home Medications Scheduled Amlodipine Besylate (Amlodipine Besylate) 5 Mg Tablet, 10 MG PO DAILY, (Reported) Cholecalciferol (Vitamin D3) (Vitamin D3) 1,000 Unit Tablet, 1,000 UNITS PO DAILY, (Reported) Famotidine (Famotidine) 20 Mg Tablet, 20 MG PO DAILY, (Reported) Ferrous Gluconate (Ferrous Gluconate) 324 Mg Tablet, 324 MG PO QPM, (Reported) Ibandronate Sodium (Ibandronate Sodium) 150 Mg Tablet, 150 MG PO QMONTH, (Reported) Scheduled PRN Albuterol Sulfate (Proair Hfa) 8.5 Gm Hfa.aer.ad, 2 PUFF INH Q4H PRN for SHORTNESS OF BREATH, (Reported) Miscellaneous Medications [Patient Comment] , (Reported) MED REC COMPLETED VIA PREVIOUS DISCHARGE PAPERWORK (03/31/21) JACOBO FINK MD Apr 05, 2021 20:38
--- NOTE | 2021-04-05 20:55 | REPVR ---
PROCEDURE INFORMATION: Exam: US Pelvis Limited, Transabdominal, Soft tissue Exam date and time: 04/05/2021 7:55 PM Age: 75 years old Clinical indication: Other: Swelling, RT groin; Additional info: Sepsis, groin swelling TECHNIQUE: Imaging protocol: Real-time transabdominal pelvic ultrasound with image documentation. Limited exam. Exam focused on the soft tissue. COMPARISON: CT ABD PELVIS W/O CONTRAST 04/05/2021 9:32 AM FINDINGS: Soft tissues: Unremarkable. No masses or collections in visualized area. Lymph nodes: Imaging of the right inguinal area demonstrates numerous inflammatory lymph nodes measuring up to 2.2 x 1.1 x 1.8 cm. Internal flow demonstrated. IMPRESSION: Multiple inflammatory lymph nodes in the right inguinal region. No abscess demonstrated. Electronically signed by: Asher Eugene On 04/05/2021 20:55:08 PM
--- NOTE | 2021-04-05 20:59 | REPVR ---
PROCEDURE INFORMATION: Exam: CT Neck Without Contrast Exam date and time: 04/05/2021 8:00 PM Age: 75 years old Clinical indication: Mass, lump, or swelling in neck; Left; Additional info: L sided swelling, abscess? Ln? TECHNIQUE: Imaging protocol: Computed tomography images of the neck without contrast. Radiation optimization: All CT scans at this facility use at least one of these dose optimization techniques: automated exposure control; mA and/or kV adjustment per patient size (includes targeted exams where dose is matched to clinical indication); or iterative reconstruction. COMPARISON: CT Spine,cervical w/o contrast 02/08/2021 10:45 AM FINDINGS: Nasopharynx: Unremarkable. Oropharynx: Unremarkable. No significant tonsillar enlargement. Hypopharynx: Unremarkable. Larynx: Unremarkable. Normal epiglottis. Retropharyngeal space: Unremarkable. Submandibular/Parotid glands: There is enlargement of both parotid glands demonstrating intraparotid lymph nodes and or pleomorphic adenomas. There are inflammatory changes in the subcutaneous soft tissues overlying the parotid glands and extending along the posterior aspect of the neck bilaterally. Finding may indicate the presence of cellulitis in the appropriate clinical setting. Thyroid: Status post resection right lobe of the thyroid gland. Lymph nodes: Extensive bilateral lymphadenopathy extending from level 2 to level 4 regions bilaterally. These measure up to 2.1 cm in the left supraclavicular fossa. There is mediastinal lymphadenopathy partially visualized measuring up to 1.4 cm in the pretracheal retrocaval area and 9 mm in the left periaortic region. Trachea: Visualized trachea is unremarkable. Lungs: Small bilateral pleural effusions, right greater than left. Bones/joints: Unremarkable. No acute fracture. Vasculature: Central venous catheter demonstrated entering from the right subclavian approach. Soft tissues: Rounded soft tissue density in the subcutaneous soft tissues of the posterior neck on the left measuring 9 mm may represent a lymph node. IMPRESSION: 1. There is enlargement of both parotid glands demonstrating intraparotid lymph nodes and or pleomorphic adenomas. There are inflammatory changes in the subcutaneous soft tissues overlying the parotid glands and extending along the posterior aspect of the neck bilaterally. Finding may indicate the presence of cellulitis in the appropriate clinical setting. 2. Extensive bilateral lymphadenopathy extending from level 2 to level 4 regions bilaterally. These measure up to 2.1 cm in the left supraclavicular fossa. 3. Status post resection right lobe of the thyroid gland. 4. Partially visualized mediastinal lymphadenopathy demonstrated as well. Electronically signed by: Asher Eugene On 04/05/2021 20:59:34 PM
[2021-04-05] MEDS ORDERED: THROMBIN SOLN 20,000 UNITS KIT As Ordered ONE (21:19)
[2021-04-05] MEDS: VANCOMYCIN ORAL SOL 250MG/5ML ORAL SYRINGE PO SCH ×2 (21:27→23:56)
[2021-04-06] VITALS (74 sets, daily range): BP systolic 90–179; BP diastolic 51–89
[2021-04-06] MEDS: PIPERACILLIN/TAZOBACTAM SOD 2.25 GM in D5W MINI-BAG PLUS 50 ML IV SCH ×4 (04:11→20:28)
[2021-04-06 05:04] LABS: POTASSIUM RANDOM URINE 57.5 MEQ/L; TOTAL PROTEIN,RANDOM URINE 233.3 MG/DL (0.0-12.0)
--- NOTE | 2021-04-06 06:21 | CR ---
CONSULTATION DATE: 04/05/2021 REQUESTING PHYSICIAN: SERGIO JOHANSEN MD REASON FOR CONSULTATION: Oligoanuric acute renal failure. HISTORY OF PRESENT ILLNESS: Ms. Susan Levin is previously unknown to me. She is a 75-year-old female with a past medical history of hypertension, idiopathic pulmonary fibrosis, iron deficiency anemia, dyslipidemia, recent hospitalization in January for hypercalcemia and another hospitalization in February for pneumonia. The patient is also undergoing workup for suspected lymphoma and has diffuse lymphadenopathy and is status post a left inguinal node biopsy back in January 2021. She follows up with Dr. Matute from the Oncology Service and there has been discussion regarding getting further biopsy. 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 She did have an acute kidney injury during that admission but it resolved and creatinine on the day of discharge (March 31 was 1.3). She had completed a 10 day course of Vancomycin and Zosyn on that admission. She was scheduled for a follow-up with Oncology on April 16 for excisional lymph node biopsy. The patient now presented to the ER last night, April 04 after her neighbor called EMS because the patient was unresponsive. The patient was found to be severely hypotensive and had emergent central line placement and was given IV fluids and started on Levophed pressor support. The nursing staff had a lot of difficulty placing a Evans catheter and Neurology was finally called to place the Evnas catheter. The patient had no significant urine output despite aggressive IV fluids and pressor support. She initially came in with a lactic acid of 2.2 but this increased over 12 hours up to 8.4. The patient was seen as well by multiple services including Cardiology service, Infectious Disease service, RESIDENTIAL [facility]LECTIONS service, Hematology/Oncology, and Urology as well. She is on broad-spectrum antibiotics. The patient is seen and examined by myself this morning in the Intensive Care Unit while she is getting her echocardiogram done. PAST MEDICAL HISTORY: 1. Two recent hospitalizations; January 2021 for hypercalcemia and found to have diffuse lymphadenopathy, suspected lymphoma; February 2021 due to pneumonia. 2. Chronic kidney disease Stage III. 3. Hypertension. 4. Idiopathic pulmonary fibrosis. 5. Diastolic congestive heart failure. 6. Osteoporosis. 7. Iron deficiency anemia. 8. Dyslipidemia. 9. Protein calorie malnutrition. 10.Unspecified type of lymphoma. PAST SURGICAL HISTORY: She has had lymph node biopsy, partial right thyroidectomy and surgical excision of basal cell carcinoma. SOCIAL HISTORY: Patient tells me she lives alone. She does not smoke, drink or use drugs. She previously worked in the [employer] at [employer] and is now retired. Her primary care doctor is Dr. Segura. FAMILY HISTORY: Significant for hypertension. ALLERGIES: No known drug allergies. HOME MEDICATIONS: Reviewed. 1. Amlodipine 10 mg daily. 2. Vitamin D 1000 units daily. 3. Famotidine 20 mg daily. 4. Ferrous sulfate 324 mg p.o. q. p.m. 5. Ibandronate 150 mg p.o. q. monthly. REVIEW OF SYSTEMS: CONSTITUTIONAL: Patient reports fever, weakness and fatigue. EYES: She denies visual changes or tearing. HEENT: She denies epistaxis, rhinorrhea or odynophagia. CARDIAC: She denies chest pain, palpitations or leg swelling. RESPIRATORY: She has idiopathic pulmonary fibrosis. She denies any shortness of breath at rest. GASTROINTESTINAL: She has had diarrhea. She denies vomiting. GENITOURINARY: She reports a sensation of pelvic pressure but she denies dysuria. She presently has a Evasn catheter and is oligoanuric. ENDOCRINE: She denies any history of diabetes or hypothyroidism. HEMATOLOGIC: She reports anemia and workup for lymphadenopathy. MUSCULOSKELETAL: She denies leg swelling or any acute myalgias or arthralgias. NEUROLOGIC: She denies seizure or syncope. The remainder of review of systems is negative or as per HPI. PHYSICAL EXAMINATION: VITAL SIGNS: Temperature 97.3, pulse 94, respiratory rate is 20, blood pressure is 110/61, saturating 99% on room air. INTAKE AND OUTPUT: Intake since admission is 4 liters. Urine output is less than 50 ml. Weight on the bed scale is 36.5 kg. GENERAL: Patient is seen lying flat in bed having an echocardiogram done at the bedside in the Intensive Care Unit. She is awake, alert and oriented to person, place and situation, month and year. She is a fair historian. HEENT: Extraocular muscles are intact. Tongue is moist. NECK: Supple. Jugular veins are flat. HEART: Heart sounds are regular S1 and S2. There is no leg edema. There is no dependent edema. LUNGS: Anterior auscultation only. Occasional crackle but no rales. ABDOMEN: Soft and nontender. There is a Evans catheter present with minimal urine. EXTREMITIES: No clubbing, cyanosis or edema. NEUROLOGIC: She is awake, alert, oriented and cooperative with physical exam. LABORATORY DATA: Sodium is 134, potassium is 3.7, bicarbonate is 12, BUN 38. Anion gap was 20. Creatinine 3.2. Lactic acid 8.4, up from 2.0 at 2 a.m. AST and ALT are within normal limits. Creatine kinase is less than 200. Procalcitonin 45, a.m. cortisol 43. Hemoglobin is 8.8, platelets 390,000. White count 28.8. Microbiology: Blood cultures are pending. Stool occult blood is positive. Respiratory viral panel is negative. She had a CT of the abdomen and pelvis without contrast. There is marked diffuse retroperitoneal pelvic and bilateral inguinal adenopathy compatible with lymphoma. There is also a left adnexal cystic structure. The kidneys were unremarkable on the CT scan. CT of the chest done today shows bilateral pleural effusions and reactive mediastinal and hilar lymph nodes and significant bilateral axillary adenopathy. Renal ultrasound shows no obstruction. INPATIENT MEDICATIONS: 1. She is on a Levophed infusion, maximum requirement was 24 mcg, current requirement is 8 mcg. 2. She has also received a bolus of lactate ringers, bolus of normal saline and she is now started on half normal saline with 75 mEq of sodium bicarbonate running at 120 ml/hr. 3. Vancomycin and Zosyn. 4. Albuterol p.r.n. 5. Heparin 5000 units sub q. q. 12 hourly. 6. Protonix 40 mg IV daily. 7. Oral Vancomycin 125 mg p.o. q. 6 hourly. PROBLEMS: 1. Oligoanuric acute renal failure in this patient with CKD Stage III. I note patient's recent admission in January for hypercalcemia and other admission in February for pneumonia with a discharge creatinine of 1.3 on March 31. Patient now returns with maria del carmen septic shock. She is hypovolemic and has significant pressor requirement. Levophed is currently running at 8 mcg down from 24 mcg overnight. She is receiving aggressive IV fluid hydration. She is in considerable metabolic acidosis with high anion gap and I have switched her to bicarbonate containing fluids at this time. I did briefly discuss with the patient today at the bedside that she may progress to dialysis needs if she does not stabilize with IV fluids, pressor support and broad-spectrum antibiotics. At present, I would continue aggressive management of her underlying sepsis and if the patient remains oligoanuric, then she is most likely going to need CRRT. 2. Septic shock. The patient came in with a high-grade fever, leukocytosis and was recently admitted for pneumonia at the end of February. A full infectious workup is being repeated. Blood cultures are pending. She is on broad-spectrum antibiotics. I note Infectious Diseases and Gynecology have both been called to see the patient for identification of the underlying cause of her sepsis. She is in renal failure secondary to septic shock. Unfortunately, she also received Ibuprofen in the Emergency Room. She is high risk for progressing to dialysis needs given the severity of her septic shock and probable acute tubular necrosis. 3. High anion gap metabolic acidosis. The patient's bicarbonate is down to 12. She has a respiratory alkalosis compensating for her metabolic acidosis and her pH is fairly reasonable at 7.36 because of the compensation. I switched her fluids now to bicarbonate containing fluids. I would hold off on further lactate ringers given the patient's lactic acidosis. 4. Hypotension secondary to septic shock. She is on Levophed pressor support in view of oligoanuric renal failure, probable acute tubular injury versus acute tubular necrosis. Would keep target MAP at 70 for now for improved renal perfusion pressure. 5. Anemia. Her stool occult blood was positive. She is on Heparin sub q. DVT prophylaxis, defer to her primary and [facility] Team if it should be continued. She also has an INR of almost 1.8 and I wonder if there is any sort of underlying coagulopathy. 6. Lymphoma, subtype unknown. I have reviewed the consult note from Dr. Matute from March 28. Patient was pending an excisional biopsy later this month and is probably immunocompromised and further input from Oncology is pending. The patient's central line in the groin was discontinued and a subclavian catheter was placed and CVP was found to be low at 4 this evening and further fluid boluses were ordered by the primary service and the patient continues on IV fluid and pressor support and remains unfortunately anuric and will most likely need to commence on CRRT in the morning. Thank you for involving me in the care of Ms. Levin. I will be happy to follow her along with you.
[2021-04-06] MEDS: VANCOMYCIN ORAL SOL 250MG/5ML ORAL SYRINGE PO SCH ×4 (06:28→23:27)
[2021-04-06 06:35] LABS: HEMATOCRIT 26.8 % (36.0-47.0); MEAN CORPUSCULAR HEMOGLOBIN 28.1 pg (27.0-33.0); MEAN CORPUSCULAR VOLUME 82.7 fl (80.0-96.0); PLATELET COUNT, AUTOMATED 171 10^3/uL (150-450); RED BLOOD COUNT 3.24 10^6/uL (4.00-5.40); WHITE BLOOD COUNT 15.3 10^3/uL (4.0-10.0)
[2021-04-06 06:39] LABS: HEMOGLOBIN 9.1 g/dl (12.0-15.5); INR 1.8; PROTHROMBIN TIME 21.3 SECONDS (12.5-14.3)
[2021-04-06 06:52] LABS: ALBUMIN 2.5 GM/DL (3.2-5.2); BILIRUBIN,TOTAL 0.9 MG/DL (0.2-1.0); CALCIUM LEVEL 6.7 MG/DL (8.8-10.2); CREATININE FOR GFR 3.2 MG/DL (0.55-1.30); MAGNESIUM LEVEL 2.1 MG/DL (1.8-2.4); PHOSPHORUS LEVEL 3.1 MG/DL (2.5-4.9); POTASSIUM SERUM 3.4 MEQ/L (3.5-5.1); TOTAL PROTEIN 4.8 GM/DL (6.4-8.2); VANCOMYCIN RANDOM 11.8 UG/ML
[2021-04-06] MEDS ORDERED: VANCOMYCIN HCL 500 MG in D5W MINI-BAG PLUS 100 ML IV ONE (08:00)
[2021-04-06] MEDS ORDERED: POTASSIUM CHLORIDE 10 MEQ SR TABLET PO ONE (08:00)
[2021-04-06] MEDS: HEPARIN SOD (PORCINE) 5000UNITS/ML 1ML VIAL/SYRINGE SQ SCH ×2 (09:16→20:28)
[2021-04-06] MEDS: SODIUM BICARBONATE 75 MEQ in NS 0.45% 1,000 ML IV SCH (09:17)
[2021-04-06] MEDS: PANTOPRAZOLE 40MG VIAL (C9113 PER 1) IV SCH (09:17)
--- NOTE | 2021-04-06 09:33 | CCN ---
CRITICAL CARE NOTE DATE: 04/06/2021 SUBJECTIVE: The patient is seen in the intensive care unit. This is ICU day #3. Right subclavian catheter day #2. She is more comfortable this morning. Levophed has been able to be weaned off. The venipuncture sites required application of thrombin for active bleeding. OBJECTIVE: VITAL SIGNS: At bedside, her temperature is 98. T-max for the past 24 hours of 99, pulse rate 91, respirations 18, and resting blood pressure 102/58. Saturation 94% on room air. INTAKE AND OUTPUT: For the past 24 hours, 5180 in and 20 mL out; since midnight 900 mL in and 20 mL out. Central venous pressure currently measures 10. HEENT: She is ill-appearing. Her mucosa is pink and moist. NECK: Supple with adenopathy palpable. The right subclavian catheter site is dressed. There is no active bleeding at this time. Site is clean. HEART: Sounds are regular with a soft systolic murmur. Breath sounds are mildly coarse and otherwise clear. No focal sounds. ABDOMEN: Mildly tender. Bowel sounds are appreciated in the right lower quadrant. EXTREMITIES: There is adenopathy in the right groin. Peripheral pulses are easily palpable. DIAGNOSTIC STUDIES: Her sodium is 131, potassium 3.4, chloride 98, CO2 of 20, BUN 36, creatinine 3.20, glucose 99. White cell count is 15.3, hemoglobin 9.1, hematocrit 26.8, platelet count 171,000. AST 14, ALT 9, albumin 2.5. LDH is 676. PT is 21, PTT 36, INR 1.8, calcium 6.7 on an albumin of 2.5. Imaging studies have shown right inguinal adenopathy, diffuse cervical and mediastinal adenopathy. Chest x-ray shows the tubes and lines to be in good position. MEDICATION REVIEW: She is on day #3 of Zosyn and receiving vancomycin IV and orally. ASSESSMENT/PLAN: 1. The primary problem requiring critical attention is shock likely septic. The patient has responded to volume and pressors have been able to be weaned off. Central venous pressure is now acceptable at 10. 2. Acute kidney injury. The patient is anuric. Nephrology is following. 3. Lymphoma. Pathology is pending. This appears to be a very progressive disease. 4. Deep vein thrombosis (DVT) prophylaxis. Sequential hose as the patient is coagulopathic. The patient's condition is critical. Prognosis is guarded. CRITICAL CARE TIME: 62 minutes spent in the provision of bedside critical care and coordination, exclusive of any time for the performance of procedures.
[2021-04-06] MEDS ORDERED: CALCIUM GLUCONATE 1,000 MG in D5W MINI-BAG PLUS 100 ML IV ONE (10:30)
--- NOTE | 2021-04-06 11:58 | REP ---
INDICATION: central line placement. COMPARISON: 04/05/2021. TECHNIQUE: Single portable AP view of the chest was performed. FINDINGS: Diffuse right lung infiltrates appear to have mildly increased. Small right effusion has mildly increased. There is scattered mild infiltrate in the left lung which appear minimally increased. The heart and mediastinum are unchanged. A right central venous catheter has been placed, the tip is in the right atrium. There is no pneumothorax. IMPRESSION: Right central venous catheter, tip in the right atrium. No pneumothorax. Increased infiltrates and pleural fluid on the right as discussed above. <Electronically signed by Jey Solo > 04/06/21 [id number]
--- NOTE | 2021-04-06 12:41 | RO ---
OPERATIVE NOTE DATE OF OPERATION: 04/06/2021 PREOPERATIVE DIAGNOSIS: Acute renal failure. POSTOPERATIVE DIAGNOSIS: Acute renal failure. PROCEDURE: Right subclavian dialysis catheter placement. SURGEON: Mauricio Magaña DO, [facility] EDUCATIONAL: ANESTHESIA: DESCRIPTION OF PROCEDURE: The patient was seen and the procedure explained to the patient as well as possible complications pertaining thereto and informed consent was obtained. The patient was placed in the supine position. The right subclavian vein had been accessed with triple lumen catheter. Guidewire was placed in through the distal port of the catheter and the catheter removed over the guidewire. Dilator was placed following which a tri-lumen dialysis catheter was placed in the right subclavian vein without difficulty. The catheter was sewn in placed. Postprocedure chest x-ray confirmed adequate placement. There were no complications.
--- NOTE | 2021-04-06 12:50 | CR ---
CONSULTATION DATE: 04/05/2021 TIME: 6 p.m. REASON FOR CONSULTATION: I was asked to consult by Dr. De La O for evaluation of fever with septic shock. HISTORY OF PRESENT ILLNESS: Mrs. Levin is a pleasant [place] female who was diagnosed with hypercalcemia in January of 2021 and was noted to have significant diffuse lymphadenopathy. The biopsy was done from the inguinal node which was not diagnostic but suggestive of lymphoma. The patient was admitted also on March 21 until March 31 for pneumonia with bilateral pleural effusion, acute kidney injury, and was treated with ceftriaxone and Zithromax for seven days. She was discharged home on oral antibiotics. She developed diarrhea, was feeling weak and then was noted by her neighbor that she was unresponsive. They called the paramedics. She was brought into the hospital. She had mental status changes with a fever of 104 with septic shock. She was hypotensive, started on Levophed. The patient was seen in the ICU at 6 p.m. on April 05. She was alert, oriented. She was having rigors and did complain of some pain in her pelvic area. She had no urine output. She had a Evans catheter that was placed by urology. She had a femoral line that had been placed by Dr. Araujo and the resident that was functioning well but there was an area of induration and redness in the right groin area where the femoral line measuring about 10 x 15 cm which according to her nurse, Varsha, was not there before. She had redness in her left neck area. When asked if it was painful, she stated "these are the lymph nodes from the lymphoma" but they were very indurated according to nursing that had developed also today. PAST MEDICAL HISTORY: 1. Hypertension. 2. Chronic kidney disease. 3. Heart failure with preserved ejection fraction. 4. Idiopathic pulmonary fibrosis. 5. Osteoporosis. 6. Anemia, 7. Dyslipidemia. 8. Lymphoma. Pathology is still pending from March 30 and in January was nondiagnostic but suggestive of lymphoma. 9. Protein calorie malnutrition, BMI of 16.9. 10. History of basal cell carcinoma of the left nostril. PAST SURGICAL HISTORY: 1. Right hemithyroidectomy. 2. Excision of basal cell carcinoma, nose. SOCIAL HISTORY: She has two daughters and one son. One of the daughters is a nurse in [place]. She is a . She does not drink. She lives in [place] alone, does not use drugs. FAMILY HISTORY: Father of hypertension, mother of cerebral hemorrhage. ALLERGIES: No known drug allergies. MEDICATIONS: 1. Vancomycin 125 mg p.o. q.6 hours. 2. Sodium bicarb. 3. Levophed. 4. Piperacillin/tazobactam 2.25 gm IV q.6 hours. 5. Mylanta p.r.n. 6. Milk of Magnesia p.r.n. 7. Tylenol p.r.n. 8. Pantoprazole 40 IV daily. 9. Heparin 5000 units subcu q.12 hours. 10. Vancomycin 500 mg IV x1 dose on 04/06. LABORATORY DATA: On 04/05, white count was 28.8 in the morning and 16.2 in the afternoon. Hemoglobin 11.1, hematocrit 33.3, platelets 174, ESR 46. Sodium 133, potassium 4, chloride 100, bicarb 15, BUN 36, creatinine 3.35, glucose 124, lactic acid 8.4, down to 7.1, calcium 7.5. AST 18, ALT 8, alk phos 82. CRP 5.97, total protein 4.8, albumin 1.5. Procalcitonin 45.36. PTH 20.2, cortisol level 43.8. Blood cultures 04/04, one out of two was positive for gram positive rods. Respiratory panel was negative. Stool Hemoccult was positive. Repeat, two sets of blood cultures on 04/05 are pending. Urine culture is pending and GI panel was negative. IMAGIN/7 chest x-ray portable showed increased interstitial markings bilaterally consistent with chronic changes and COPD. CT, abdomen and pelvis showed an adnexal mass measuring 6.7 cm on the left side with stable appearance of the uterus, Evans catheter in the collapsed bladder and marked diffuse retroperitoneal, pelvic and bilateral inguinal adenopathy, unchanged and most compatible with lymphoma. CT chest shows mild improvement in bilateral effusion and parenchymal opacities, no change in diffuse adenopathy compared to a CT done last month. She has reactive mediastinal and hilar lymphadenopathy with significant bilateral axillary adenopathy. REVIEW OF SYSTEMS: The patient complains of fever and rigors, weakness and some pelvic pain but otherwise nonrevealing. PHYSICAL EXAMINATION: General: Sick looking, frail female in mild discomfort. Vital Signs: Temperature is 98, pulse 100, respirations 18, blood pressure 124/59, O2 sat 96-98% on room air. Heart: Normal S1, S2, tachycardic, no murmurs appreciated. Lungs: Clear. No wheezes, rales or rhonchi. Abdomen: Soft, mildly tender in the right lower quadrant with induration and erythema in the right lower quadrant. : She has a femoral line in her right groin with surrounding induration, redness that extends from the groin area all the way to the right lower quadrant about 10 x 15 cm in width, tender to touch. Her femoral line is flushing well and infusing well. Neck: Diffuse adenopathy with parotid gland enlargement. The left side of her neck, she has significant lymphadenopathy, somewhat worse than the right side but also has erythema and induration with tenderness involving the neck from the jaw line all the way to the clavicle which is new according to nurses. Extremities: No clubbing, cyanosis or edema, no calf tenderness. She has axillary and inguinal adenopathy as well. Neurologic: Alert and oriented x3. Motor strength is normal except for generalized weakness. IMPRESSION: This is a 75-year-old female who was admitted with septic shock. She has a history of diffuse adenopathy with probable lymphoma. Lymph node is still pending from March 30, nondiagnostic from February 15- but very suspicious. She is admitted in septic shock. Source at this point is unclear. She is not hypoxic, does not have a cough to suggest pneumonia. Her urinalysis was pretty benign with only one white cell. CT of the abdomen and pelvis showed only mostly adenopathy and this large left adnexal mass which was initially described as benign but there was some concern of possibility of cystadenoma. According to Dr. Mera's note, it is not suspicious for an abscess and this is probably not the cause of her sepsis. Currently on IV vancomycin and Zosyn along with p.o. vancomycin preventatively for diarrhea to decrease the risk of C. difficile. She has somewhat improved with a decreased dose of her pressor, improvement of her lactic acidosis and leukocytosis. My major concern as she has significant adenopathy and with this induration in her right groin and her left neck, it looks like she may have necrotizing adenitis possibly from a very aggressive lymphoma such as a diffuse large B-cell lymphoma could present that way. PLAN: 1. Continue with IV vancomycin and Zosyn. C. difficile was negative but could continue with vancomycin preventatively to decrease the risk of C. difficile but I would use a b.i.d. dosing instead of a q.6 dosing. 2. Obtain uric acid and LDH. 3. We will discuss with Dr. Shepard regarding this necrotizing adenitis. The patient seemed to have a very aggressive lymphoma. 4. Obtain stat pelvic ultrasound to rule out infiltration of the femoral line, remove the femoral line and place a central line, IJ or subclavian. Dr. Magaña was called and was at the bedside to change her line last night. Case discussed with Dr. Jaylyn MD. Obtain neck CT to rule out infectious process in the neck that could be causing this redness and induration with underlying lymphoma. I was at the bedside for one hour in the ICU with Dr. Magaña and Dr. Jaylyn MD.
--- NOTE | 2021-04-06 14:24 | IPN ---
PROGRESS NOTE DATE: 04/06/2021 SUBJECTIVE: Patient seen and examined this morning at the bedside in the Intensive Care Unit. She came off of Levophed pressor support at 4:00 a.m. Her CVP this morning is up to 10. She remains on room air. She is completely anuric. She is going to have trialysis catheter placed by Dr. Magaña and plan is for first hemodialysis treatment this afternoon. Patient denies shortness of breath at rest. She has been afebrile the past 24 hours and nursing staff reports no other acute events. PHYSICAL EXAMINATION: INTAKE/OUTPUT: Intake yesterday was 5.1 liters. Urine output yesterday was only 20 cc. Weight in the bed scale today is not recorded. GENERAL: Patient is seen lying in bed with the head of the bed slightly elevated, elderly female, awake, alert, oriented x4, in no distress. HEENT: Extraocular muscles are intact. Tongue is moist. Neck is supple. There is a subclavian line in the right chest. HEART: Sounds are mildly tachycardic, S1, S2. LUNGS: Show scattered rhonchus, but no rale. ABDOMEN: Soft and nontender. GENITOURINARY: Shows Evans catheter with no significant amount of urine in the bag and there was a dressing over the site of the prior femoral central line, which has since been removed. EXTREMITIES: Negative for edema. Her peripheral pulses are 2+. NEUROLOGIC: She is awake, alert and oriented and at baseline mentation. LABORATORY STUDIES: Sodium 131, potassium 3.4, bicarbonate 20, BUN 36, creatinine 3.2. Lactic acid 2.7. Magnesium 2.1. Hemoglobin 9.1. Transferrin saturation 10%. Repeat blood cultures from yesterday are pending. The initial blood culture on April 04 was positive for one out of two sets with gram positive ulises bacillus species, not anthracis. IMAGING: She had a chest x-ray done this morning, that shows increased infiltrates and right-sided pleural effusion. INPATIENT MEDICATIONS: I stopped her sodium bicarbonate drip. She got calcium gluconate 1 gram I.V. x1. Her Levophed is on hold. She continues on Vancomycin and Zosyn. She is on Heparin subcutaneously 5,000 units every 12 hours, Protonix 40 mg I.V. daily. She got a dose of potassium chloride 40 mEq p.o. x1 today and she continues on oral Vancomycin. PROBLEMS: 1. Oligoanuric acute renal failure in this patient with recent septic shock and high dose NSAID in the Emergency Room probably with acute tubular necrosis versus tubular injury: She was aggressively hydrated, has received more than 6 liters of I.V. fluid over the course of her admission and CVP has come up from 4 to 10, but the patient remains anuric. She is off of Levophed since 4:00 a.m. this morning. I think she will tolerate intermittent hemodialysis and she is having a trialysis catheter placed and plan is for first hemodialysis treatment this afternoon. Patient will receive albumin with dialysis. 2. Hypotension secondary to septic shock: She is off of Levophed since this morning. She has been aggressively hydrated. She is also receiving albumin; last dose will be this afternoon with dialysis. 3. Septic shock: Patient initially came in with leukocytosis and high-grade fever. She was also recently admitted for pneumonia two weeks ago. She is probably immunocompromised given suspected lymphoma. Her repeat blood cultures and urine culture is pending. She was also seen by infectious diseases and she continues on I.V. Vancomycin and I.V. Zosyn and with oral Vancomycin preventatively to decrease risk of C. difficile. Her femoral line was switched to a subclavian line. 4. Anemia with iron deficiency: Transferrin saturation is only 10%, but she is not suitable for I.V. iron at this time due to ongoing infectious workup. There is no need for any further transfusion at this time. Her stool occult blood returned back negative. I am holding Heparin with dialysis today. 5. Metabolic acidosis: She was treated with a sodium bicarbonate drip. Bicarbonate has come up to 20 on the latest labs from 12 yesterday. Sodium bicarbonate drip is being stopped. Her lactic acidosis has also nicely improved. 6. Protein calorie malnutrition: Patient is frail with a low BMI and albumin was 1.5 on admission. She was given albumin for increased oncotic pressure and her last dose is ordered to be given with dialysis this afternoon. ADDENDUM: ICU nurse called me around noon today to inform me that the patient is now mildly short of breath, although she remains saturating well on room air. I.V. fluids have already been stopped and I instructed the hemodialysis nurse to try and take off 1.5 liters with the patient's hemodialysis treatment this afternoon.
[2021-04-06 15:03] LABS: HEPATITIS B CORE ANTIBODY IGM NEGATIVE (NEGATIVE); HEPATITIS B SURFACE ANTIBODY POSITIVE (POSITIVE); HEPATITIS B SURFACE ANTIGEN NEGATIVE (NEGATIVE)
--- NOTE | 2021-04-06 15:50 | ECGEPIP ---
[facility] Test Date: 2021-04-05 Pat Name: RAKESH SALOMON Department: Room: [place] [address] Gender: Female Vendor Specialist: bezty : 1945 Requested By: SERGIO JOHANSEN Order Number: [id number] Reading MD: Mauricio Larkin Measurements Intervals [place] Rate: 82 P: 35 AL: 128 QRS: 51 QRSD: 74 T: 42 QT: 382 QTc: 446 Interpretive Statements Normal sinus rhythm Low voltage QRS T wave abnormality, consider anterior ischemia Baseline artifact Similar to tracing done 04-04-21 but with decreased rate Electronically Signed on 04-06-2021 15:50:15 EDT by Mauricio Larkin
--- NOTE | 2021-04-06 16:00 | ECGEPIP ---
[facility] Test Date: 2021-04-06 Pat Name: RAKESH SALOMON Department: Room: [place] [address] Gender: Female Sack Filler: macario : 1945 Requested By: SERGIO JOHANSEN Order Number: [id number] Reading MD: Mauricio Larkin Measurements Intervals [place] Rate: 99 P: 59 MS: 152 QRS: 50 QRSD: 68 T: 2 QT: 344 QTc: 441 Interpretive Statements Normal sinus rhythm Low voltage QRS Nonspecific T wave abnormality Similar to tracing done 04-05-21 Electronically Signed on 04-06-2021 16:00:19 EDT by Mauricio Larkin
--- NOTE | 2021-04-06 16:13 | ECGEPIP ---
[facility] - ED Test Date: 2021-04-04 Pat Name: RAKESH SALOMON Department: Room: [place] [address] Gender: Female Harp Maker: cristhian : 1945 Requested By: TRACY Duran Order Number: [id number] Reading MD: Mauricio Larkin Measurements Intervals [place] Rate: 118 P: 81 NM: 146 QRS: 51 QRSD: 68 T: 32 QT: 324 QTc: 454 Interpretive Statements Sinus tachycardia with premature atrial complexes with aberrant conduction Nonspecific ST-T wave abnormalities Similar to tracing done 03-21-21 Electronically Signed on 04-06-2021 16:13:21 EDT by Mauricio Larkin
--- NOTE | 2021-04-06 19:10 | CR.PDOC ---
General Date of Consultation: Apr 06, 2021 Referring Provider: SERGIO JOHANSEN MD Attending Physician: SERGIO JOHANSEN MD Consultation REASON FOR CONSULTATION/CHIEF COMPLAINT: Suspected lymphoma. HISTORY OF PRESENT ILLNESS: 75-year-old initially noted to have supraclavicular lymphadenopathy in January of this year. She was admitted on February 08, 2021 for weakness and fall and found to have hypercalcemia, anemia and leukopenia. CT cervical spine 02/08/2021 showed bulky cervical and supraclavicular lymphadenopathy. CT chest 02/08/2021 showed considerable bilateral axillary, mediastinal and hilar adenopathy. CT abdomen and pelvis showed mesenteric, retroperitoneal, and pelvic adenopathy along with splenomegaly. She had a left inguinal lymph node biopsy 02/12/2021 which showed atypical lymphoproliferation specimen to make a definitive diagnosis. With suspicion for lymphoma but specimen too limited to make a definitive diagnosis. She was again admitted 03/21/2021 for fever and diagnosed to have sepsis secondary to pneumonia. She was given broad-spectrum antibiotics with improveme nt. CT chest 03/23/2021 showed bilateral pleural effusions and bulky supraclavicular, axillary,mediastinal, retrocrural and, and upper abdominal lymphadenopathy. CT abdomen pelvis March 23, 2021 showed bilateral pleural effusion, ascites, splenomegaly and extensive adenopathy. On that admission she also underwent excision of left neck lymph node with pathology still pending as of this time. According to pathologist Dr. 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 She was readmitted on 04/05/2021 for altered mental status septic shock. She was also found to be in acute renal failure and scheduled to start dialysis later today. CT abdomen and pelvis 04/05/2021 showed marked diffuse retroperitoneal pelvic and bilateral inguinal adenopathy. There was also note of left adnexal cystic structure measuring 6.7 cm in diameter possibly necrotic lymph node. CT chest 04/05/2021 showed mediastinal and hilar lymph nodes along with significant bilateral axillary adenopathy. CT neck 04/05/2021 showed intraparotid lymph nodes, extensive bilateral lymphadenopathy in neck. ALLERGIES: Please see below. HOME MEDICATIONS: Please see below. PAST MEDICAL HISTORY: 1. Hypertension. 2. Chronic kidney disease. 3. Heart failure with preserved ejection fraction. 4. Idiopathic pulmonary fibrosis. 5. Osteoporosis. 6. Anemia, 7. Dyslipidemia. 8. Lymphoma. Pathology is still pending from March 30 and in January was nondiagnostic but suggestive of lymphoma. 9. Protein calorie malnutrition, BMI of 16.9. 10. History of basal cell carcinoma of the left nostril. PAST SURGICAL HISTORY: 1. Right hemithyroidectomy. 2. Excision of basal cell carcinoma, nose. FAMILY HISTORY: No known history of cancer. SOCIAL HISTORY: She is . Lives by herself. REVIEW OF SYSTEMS: Reports fever, generalized weakness, fatigue, chills. PHYSICAL EXAMINATION: VITAL SIGNS: Please see below. GENERAL APPEARANCE: Lying in bed, slightly short of breath. Answered questions appropriately. HEENT: Pale conjunctival. Anicteric. Bilateral cervical lymphadenopathy. RESPIRATORY: Slightly tachypneic. Occasional wheezing. CARDIOVASCULAR: S1-S2 tachycardic. ABDOMEN: Soft, nontender, no guarding. EXTREMITIES: No calf swelling, no calf tenderness. No clubbing. Erythema on right groin. NEUROLOGICAL: Alert, oriented to time place and person. PSYCHIATRIC: Slightly anxious. LABORATORY DATA: Please see below. ASSESSMENT/PLAN: 75-year-old with suspected lymphoma. CT neck chest abdomen pelvis showed diffuse systemic lymphadenopathy. Patient has been admitted twice within the past month for sepsis. Left inguinal lymph node biopsy 02/12/2021 showed atypical lymphoproliferation specimen to make a definitive diagnosis. With suspicion for lymphoma but specimen too limited to make a definitive diagnosis. Excision of left neck lymph node March 30, 2021 with pathology pending as of this time. According to pathologist Dr. 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 The patient would likely benefit from inpatient chemotherapy for suspected lymph marquez with diffuse lymphadenopathy and clinical progression of adenopathy. Recommend transfer to facility where inpatient chemotherapy could be given after patient becomes clinically stable and once confirmation of suspected lymphoma from lymph node excision biopsy available. Thank you for referring Ms. Susan Levin. Vital Signs/I&O Vital Signs Date Time Temp Pulse Resp B/P (MAP) Pulse Ox O2 Delivery O2 Flow Rate FiO2 04/06/21 12:16 129 128/73 (91) 92 Room Air 04/06/21 12:01 98.5 26 I&O- Last 24 Hours up to 6 AM 04/06/21 06:00 Intake Total 5980.0 ml Output Total 40 ml Balance 5940.0 ml Laboratory Data Labs 24H Laboratory Tests 2 04/05/21 13:29: Troponin I 0.28#H, Random Vancomycin Level 14.7 04/05/21 15:30: Blood Gas Bicarbonate Standard 15.8L, Arterial Blood pH 7.362, Arterial Blood Partial Pressure CO2 22.9L, Arterial Blood Partial Pressure O2 92.7, Arterial Blood Total CO2 13.4L, Arterial Blood HCO3 12.7L, Arterial Blood Base Excess - 10.9L, Arterial Blood Oxygen Saturation 96.8 04/05/21 16:35: Troponin I 0.23H, Lactic Acid Level 7.1*H 04/05/21 17:55: Bedside Glucose (Misc Panel) 124H 04/05/21 18:54: Anion Gap 18H, Glomerular Filtration Rate 14.2L, Calcium Level 7.5L 04/05/21 20:19: Nucleated Red Blood Cells % (auto) 0.0, Fibrinogen 249, Urine Ketones (Auto) NEGATIVE, Troponin I 0.18#H 04/06/21 01:29: Bedside Glucose (Misc Panel) 128H 04/06/21 01:38: Troponin I 0.11#H 04/06/21 04:10: Urine Osmolality 297, Urine Random Total Protein 233.3H, Urine Random Sodium 22, Urine Random Potassium 57.5 04/06/21 06:04: Nucleated Red Blood Cells % (auto) 0.1H, Prothrombin Time 21.3H, Prothromb Time International Ratio 1.80, Activated Partial Thromboplast Time 36.0, Anion Gap 13, Glomerular Filtration Rate 15.0L, Lactic Acid Followup at 4 Hours 2.7*H, C alcium Level 6.7L, Phosphorus Level 3.1#, Magnesium Level 2.1, Total Bilirubin 0.9#, Aspartate Amino Transf (AST/SGOT) 14, Alanine Aminotransferase (ALT/SGPT) 9L, Alkaline Phosphatase 68, Lactate Dehydrogenase 676H, Total Creatine Kinase 74, Total Protein 4.8L, Albumin 2.5#L, Albumin/Globulin Ratio 1.1L, Triglycerides Level 156H, Cholesterol Level 58, Random Vancomycin Level 11.8 04/06/21 08:30: Whole Blood Ionized Calcium 3.8L 04/06/21 08:37: Reticulocyte # (auto) 85.9H, Differential Slide Review Report, Peripheral Blood Smear Path Consult PERIPHERAL SMEAR, Percent Reticulocyte Count 2.8H, Reticulocyte Hemoglobin Equivalent 26.6 CBC/BMP Laboratory Tests 04/05/21 18:54 04/05/21 20:19 04/06/21 06:04 Microbiology Microbiology 04/06/21 Gastrointestinal Tract Panel (PCR) - Final, Complete 04/06/21 Stool Occult Blood (NIKKI) - Final, Complete 04/06/21 Urine Culture, Received Pending 04/05/21 Blood Culture, Received Pending 04/05/21 Blood Culture, Received Pending 04/05/21 Stool Occult Blood (NIKKI) - Final, Complete 04/04/21 Respiratory Virus Panel (PCR) (NIKKI) - Final, Complete 04/04/21 Blood Culture - Preliminary, Resulted No growth after 24 hours . All specim... 04/04/21 Blood Culture - Final, Complete Bacillus Sp., Not Anthracis Allergies Coded Allergies: No Known Allergies (Unverified , 02/08/21) Home Medications Scheduled Amlodipine Besylate (Amlodipine Besylate) 5 Mg Tablet, 10 MG PO DAILY, (Reported) Atorvastatin Calcium (Atorvastatin Calcium) 10 Mg Tablet, 10 MG PO QHS for 7 Days, #7 Cholecalciferol (Vitamin D3) (Vitamin D3) 1,000 Unit Tablet, 1,000 UNITS PO DAILY, (Reported) Famotidine (Famotidine) 20 Mg Tablet, 20 MG PO DAILY, (Reported) Ferrous Gluconate (Ferrous Gluconate) 324 Mg Tablet, 324 MG PO QPM, (Reported) Ibandronate Sodium (Ibandronate Sodium) 150 Mg Tablet, 150 MG PO QMONTH, (Reported) Metoprolol Tartrate (Metoprolol Tartrate) 25 Mg Tablet, 12.5 MG PO BID for 1 Days, #2 Pantoprazole Sodium (Pantoprazole Sodium) 40 Mg Tablet.dr, 40 MG PO DAILY for 1 Days, #1 Vancomycin HCl (Firvanq) 50 Mg/1 Ml Soln.recon, 125 MG PO Q6H for 1 Days, #1 Scheduled PRN Albuterol Sulfate (Proair Hfa) 8.5 Gm Hfa.aer.ad, 2 PUFF INH Q4H PRN for SHORTNESS OF BREATH, (Reported) Miscellaneous Medications [Patient Comment] , (Reported) MED REC COMPLETED VIA PREVIOUS DISCHARGE PAPERWORK (03/31/21) SUSANA POWELL MD [facility] Apr 06, 2021 13:14
[2021-04-06 21:13] LABS: CALCIUM LEVEL 6.6 MG/DL (8.8-10.2); CREATININE FOR GFR 1.46 MG/DL (0.55-1.30); GLOMERULAR FILTRATION RATE 37.1 (>39); POTASSIUM SERUM 2.5 MEQ/L (3.5-5.1)
--- NOTE | 2021-04-06 21:25 | IPNPDOC ---
Date Seen The patient was seen on 04/06/21. Progress Note SUBJECTIVE: patient seen at bedside. AAO x 3. Oliguric. Off levophed, stopped at 4 am. Maintains MAP > 70. On RA. Afebrile. Empiric vanc and zosyn. WBC improving. OBJECTIVE PHYSICAL EXAMINATION: VITAL SIGNS: please see below General: NAD, comfortable HEENT: PERRLA, EOMI, sclerae clear Neck: profound swelling of neck and parotid glands Respiratory: lungs CTAB, no wheeze, no rales, no crackles CVS: RRR, normal S1, S2, no murmurs Abdo: soft, no masses, no hepatosplenomegaly, BS+, no rebound tenderness. R groin swelling, now improved Extremities: no edema, pulses 2+ MSK: no joint deformities, normal ROM Neuro: no focal neuro deficits, moving all 4 extremities, CN2-12 intact. Strength 5/5 in all 4 extremities. No nystagmus. Psych: calm, cooperative, AAO x 3 LABORATORY DATA, IMAGING STUDIES, MICROBIOLOGY: Please see below. Echocardiogram: Ordered on 04/05/21 - review. Grossly normal exam. DVT prophylaxis ordered?: SCDs and teds ASSESSMENT AND PLAN: This is a 75 female with past medical history of COPD 3. Chronic diastolic heart failure, idiopathic pulmonary fibrosis, suspected lymp jenny, currently undergoing workup, essential hypertension, recently admitted from March 21 of March 31 for the management of pneumonia and bilateral pleural effusions as well as acute kidney injury. The Patient was discharged home on by mouth antibiotics. Was found unresponsive by neighbors called 911. Diagnosed with septic shock. Patient admitted to ICU for management of septic shock due to unknown source, as well as acute renal failure. PROBLEMS: #Septick shock, source unclear: possible intrabdominal/pelvic abscess vs c diff colitis - admitted with hypotension, fever, elevated lactic acid. - presently on levophed via peripheral line, last MAP 59. - placed display department manager consult with Dr. Araujo, recommendations and assistance greatly appreciated - give additional 1L LR bolus (total 3L), c/w maintenance LR - s/p Central Line placement - f/u blood cultures. UA not suggestive of infection - presently oliguric, made ~[address] torres for critical monitoring. - order non contrast CT chest and CT abdo pelvis. - Chest imaging shows improvement in parenchymal opacities and bilateral pleural effusions from prior - CT abdo pelvis shows stable 6.7 cm L adnexal structure, possible extending from L ovary, possible necrotic lymph node (known hx of lymphoma) - c/w IV zosyn and vancomycin - will start on PO vancomycin 125 mg PO q6h preemptively given recent use of Abx, and hospitalization, with diarrhea x 3 today. - Dr. Chapman has been consulted. Recs are greatly appreciated. Acute Renal Failure upon CKD3 - continues to be oliguric - insert torres catheter - assisted by Urology - c/w fluid resuscitation, s/p 3L LR, maintenance LR at 125 cc/r - order renal US - no hydronephrosis - nephrology consult placed - patient received HD this afternoon. Dialysis cath placed by Dr. Magaña Elevated troponin - Trop 0.44, no chest pain, no ST elevation on EKG - trended down - in setting of septic shock, anemia - will c/w IVF, transfuse 2 units of prbc - cardiology consult with Dr. 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 Polk. L adnexal mass - possible abscess? source of sepsis - CT abdo pelvis showing 6.7 L adnexal mass, possible ovarian vs LN - d/w Dr. Mera, ICE SCRAPER consult placed. Recommendations are greatly appreciated. - reviewed consult, no suspicion for pelvic abscess - will c/w vanc and zosyn at this time Suspected Lymphoma: - LN biopsy 02/12/21 suspicion for lymphona, possible T cell per pathologist Dr. Lopez - excisional bx on 03/29/21 currently pending, patient has follow up [facility] oncology - possibly immunocompromised, setting of septic shock on this admission - suspect necrotic LNs, progression of adenopathy - Dr. Shepard recommending transfer to facility with ability for inpatient chem otherapy - D/w Oncology at [facility]. Accepted for transfer, likely 04/08/21 - suggested bridging therapy with solumedrol 1g daily x 3 days, but to monitor for tumor lysis syndrome - unfortunately we do not carry rasburicase on formulary - decision to continue to stabilize from sepsis standpoint and transfer to [facility] acute exacerbation of HFpEF - last echo 03/19 - G1DD. No RWMA. - moderate pulmonary HTN - mod AV sclerosis wihtout stenosis. - small posterior pericardial effusion and smaller anterior effusion 4 mmg anteriorl and 2 mm small collection behind R atria. No cardiac chamber compression, or evidence of tamponade. - mild fluid overload from IVF resuscitation - sinus tachycardic to 120s. - HD removed 1.5L of fluid HTN - hold amlodipine Idiopathic pulm fibrosis - f/u pulm OP GI ppx - pantoprazole IV 40 mg daily DVT ppx: SCDs and TEDs. Avoid chemoppx at this time. VS, I&O, 24H, Fishbone Vital Signs/I&O Vital Signs Date Time Temp Pulse Resp B/P (MAP) Pulse Ox O2 Delivery O2 Flow Rate FiO2 04/06/21 18:00 103 130/62 (84) 95 Room Air 04/06/21 16:01 98.1 20 I&O- Last 24 Hours up to 6 AM 04/06/21 06:00 Intake Total 5980.0 ml Output Total 40 ml Balance 5940.0 ml Laboratory Data 24H LABS Laboratory Tests 2 04/06/21 01:29: Bedside Glucose (Misc Panel) 128H 04/06/21 01:38: Troponin I 0.11#H 04/06/21 04:10: Urine Osmolality 297, Urine Random Total Protein 233.3H, Urine Random Sodium 22, Urine Random Potassium 57.5 04/06/21 06:04: Nucleated Red Blood Cells % (auto) 0.1H, Prothrombin Time 21.3H, Prothromb Time International Ratio 1.80, Activated Partial Thromboplast Time 36.0, Anion Gap 13, Glomerular Filtration Rate 15.0L, Lactic Acid Followup at 4 Hours 2.7*H, Calcium Level 6.7L, Phosphorus Level 3.1#, Magnesium Level 2.1, Total Bilirubin 0.9#, Aspartate Amino Transf (AST/SGOT) 14, Alanine Aminotransferase (ALT/SGPT) 9L, Alkaline Phosphatase 68, Lactate Dehydrogenase 676H, Total Creatine Kinase 74, Total Protein 4.8L, Albumin 2.5#L, Albumin/Globulin Ratio 1.1L, Triglycerides Level 156H, Cholesterol Level 58, Random Vancomycin Level 11.8 04/06/21 08:30: Whole Blood Ionized Calcium 3.8L 04/06/21 08:37: Reticulocyte # (auto) 85.9H, Differential Slide Review Report, Peripheral Blood Smear Path Consult PERIPHERAL SMEAR, Percent Reticulocyte Count 2.8H, Reticulocyte Hemoglobin Equivalent 26.6 04/06/21 13:08: Hepatitis B Surface Antigen NEGATIVE, Hepatitis B Surface Antibody POSITIVE, Hepatitis B Core IgM Antibody NEGATIVE, Hepatitis C Antibody Index 0.0 04/06/21 20:20: Anion Gap 10, Glomerular Filtration Rate 37.1L, Calcium Level 6.6L CBC/BMP Laboratory Tests 04/06/21 06:04 04/06/21 20:20 Microbiology Microbiology 04/06/21 Gastrointestinal Tract Panel (PCR) - Final, Complete 04/06/21 Stool Occult Blood (NIKKI) - Final, Complete 04/06/21 Urine Culture, Received Pending 04/05/21 Blood Culture - Preliminary, Resulted No growth after 24 hours . All specim... 04/05/21 Blood Culture - Preliminary, Resulted No growth after 24 hours . All specim... 04/05/21 Stool Occult Blood (NIKKI) - Final, Complete 04/04/21 Respiratory Virus Panel (PCR) (NIKKI) - Final, Complete 04/04/21 Blood Culture - Preliminary, Resulted No growth after 24 hours . All specim... 04/04/21 Blood Culture - Final, Complete Bacillus Sp., Not Anthracis SERGIO JOHANSEN MD Apr 06, 2021 21:25
[2021-04-07] VITALS (26 sets, daily range): BP systolic 113–178; BP diastolic 58–100
[2021-04-07] MEDS: PIPERACILLIN/TAZOBACTAM SOD 2.25 GM in D5W MINI-BAG PLUS 50 ML IV SCH ×4 (03:11→21:21)
[2021-04-07] MEDS ORDERED: FUROSEMIDE 40MG/4ML VIAL (J1940) IV ONE (04:10)
[2021-04-07] MEDS ORDERED: FUROSEMIDE 40MG/4ML VIAL (J1940) As Ordered ONE (04:12)
[2021-04-07] MEDS ORDERED: methylPREDNISolone 125MG 2ML VIAL IV STA (04:21)
[2021-04-07] MEDS ORDERED: LEVALBUTEROL 1.25 MG/0.5 ML CONCENTRATE NEB NEB PRN (04:25)
--- NOTE | 2021-04-07 04:34 | IPNPDOC ---
Text Note Date of Service The patient was seen on 04/07/21. NOTE TIME OF SERVICE 420AM S I was informed by the patient's RN that the patient suddenly became tachycardic, tachypneic and was c/o feeling cold; apparently the patient had a similar episode during the day that resolved after she received dialysis At the time of my assessment she c/o not feeling well and feeling cold. She denied having a history of COPD or Asthma (per Chart review she has IPF and was on albuterol at home) O PE BP 178/85 / HR 133 / RR 48 / o2 93% on 3L alert & oriented / + chills / slighlty pale using accessory muscles to breathe / has difficulties speaking full sentences / has expiratory wheezing A&P #SIRS Plan: f/u morning labs, lactic acid, peripheral and central blood cx to r/o bacteremia #Dyspnea Possibly due to a combination of fluid overload and some kind of pulmonary process such as acute COPD? (per ER xray) or IPF or Bronchitis Plan: f/u ABG, chest xray / give lasix, solumedrol & Duonebs / will ask the day time team to touch base with to confirm whether she has IPF or COPD #Essential HTN She received several L of IVF when she was hypotensive Plan: resume amlodipine LATE ENTRY 515AM Per d/w the patient's RN the patient's work of breathing, RR and wheezing have improved. She has produced 100ml of urine. The ABG showed hypoxemia. The chest xray showed an increased in the size of the inflitrate on the right side but the final read is pending. VS,Vitalye, I+O VS, Erlinbone, I+O Laboratory Tests 04/06/21 06:04 04/06/21 20:20 Vital Signs Date Time Temp Pulse Resp B/P (MAP) Pulse Ox O2 Delivery O2 Flow Rate FiO2 04/07/21 00:00 2.0 04/07/21 00:00 98.8 95 20 118/95 (103) 95 Nasal Cannula I&O- Last 24 Hours up to 6 AM 04/07/21 06:00 Intake Total 1690.0 ml Output Total 1606 ml Balance 84.0 ml LEILANI JOHNSON MD Apr 07, 2021 04:34
[2021-04-07 04:37] LABS: ABG HCO3 18.9 MEQ/L (22.0-26.0); ABG O2 SATURATION 91.2 % (95.0-99.0); ABG PARTIAL PRESSURE CO2 31.1 mmHg (35.0-45.0); ABG PARTIAL PRESSURE O2 62.5 mmHg (75.0-100.0); ABG STANDARD HCO3 20.3 MEQ/L (22.0-26.0); ABG TOTAL CO2 19.9 MEQ/L (23.0-31.0); ABG pH (ARTERIAL) 7.402 UNITS (7.350-7.450)
[2021-04-07 04:52] LABS: HEMATOCRIT 29.1 % (36.0-47.0); HEMOGLOBIN 9.6 g/dl (12.0-15.5); MEAN CORPUSCULAR HEMOGLOBIN 27.7 pg (27.0-33.0); MEAN CORPUSCULAR VOLUME 83.9 fl (80.0-96.0); PLATELET COUNT, AUTOMATED 129 10^3/uL (150-450); RED BLOOD COUNT 3.47 10^6/uL (4.00-5.40); WHITE BLOOD COUNT 21.3 10^3/uL (4.0-10.0)
[2021-04-07 05:14] LABS: ALBUMIN 2.6 GM/DL (3.2-5.2); BILIRUBIN,TOTAL 1.3 MG/DL (0.2-1.0); CALCIUM LEVEL 8.6 MG/DL (8.8-10.2); CREATININE FOR GFR 2.19 MG/DL (0.55-1.30); GLOMERULAR FILTRATION RATE 23.2 (>39); MAGNESIUM LEVEL 1.8 MG/DL (1.8-2.4); POTASSIUM SERUM 3.7 MEQ/L (3.5-5.1); TOTAL PROTEIN 5.8 GM/DL (6.4-8.2)
[2021-04-07 05:16] LABS: BASOPHILS 1 % (0-1); EOSINOPHILS 1 % (0-3); LYMPHOCYTES 7 % (16-44); METAMYELOCYTES 1 % (0-0); MONOCYTES 1 % (0-5); NEUTROPHILS 71 % (28-66)
[2021-04-07 05:17] LABS: ANISOCYTOSIS 1+; PLATELET ESTIMATE DECREASED (NORMAL)
[2021-04-07 05:18] LABS: POLYCHROMASIA 1+
[2021-04-07] MEDS: VANCOMYCIN ORAL SOL 250MG/5ML ORAL SYRINGE PO SCH ×4 (05:53→23:36)
--- NOTE | 2021-04-07 07:18 | CR ---
CONSULTATION DATE: 04/06/2021 REFERRING PHYSICIAN: Cristóbal De La O MD REASON FOR CONSULTATION: Abnormal serum troponin. HISTORY OF PRESENT ILLNESS: A 75-year-old woman originally from the [facility] with a history of chronic kidney disease, idiopathic pulmonary fibrosis, hypertension, chronic diastolic heart failure, chronic anemia, dyslipidemia, was admitted on 04/05/2021 with status, fever, elevated WBC. She became hypotensive and she was being treated for septic shock. She was sent was found abnormal serum troponin and cardiology consult was called. The case was discussed with the hospitalist yesterday as well as today, 04/06/2021. Mrs. Susan Levin is an unfortunate woman who has been deteriorating. She was first admitted in the month of January this with hypercalcemia and noted to have diffuse lymphadenopathy. 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 At this present time, hematology-oncology is on board. She also was admitted last month with pneumonia and discharged home at the beginning of this month of March. While at home, she developed diarrhea, fever, and status and she was brought back down to the ER on 04/05/2021. Yesterday, she was on Levophed but this has been weaned off and currently she is not on IV pressors. Her blood pressure seems to be stable. Earlier today, she had hemodialysis and she is tolerating it well. When I saw Mrs. Levin this evening, she was supine in bed in no acute distress at rest. According to her nurse, she is doing much better. The patient denies any chest pain or dizziness, palpitations. There is no report of bleeding. There is no focal manifestation. She appears to be fatigued. 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 PAST SURGICAL HISTORY: Positive for right hemithyroidectomy, surgery for basal cell carcinoma on the left nostril. SOCIAL HISTORY: The patient currently lives alone in [place], [place]. She has two daughters and one son. She has been a . She does not smoke. FAMILY HISTORY: Positive for hypertension. MEDICATIONS AT HOME: 1. Amlodipine 10 mg p.o. daily. 2. Vitamin D. 3. Famotidine 20 mg p.o. daily. 4. Iron supplement. 5. Ibandronate sodium 150 mg monthly. 6. Albuterol sulfate/ProAir as needed. CURRENT MEDICATIONS: 1. Vancomycin 125 mg q.6 hours p.o. 2. Subcu heparin 5000 units q.12 hours. 3. Pantoprazole/Protonix 40 mg p.o. IV daily. 4. Piperacillin/Albuterol sulfate /ProAir two puffs q.4 hours p.r.n. 5. Mylanta. 6. Milk of Magnesia. 7. Tylenol. 8. Earlier today, she has received potassium for hypokalemia. PHYSICAL EXAMINATION: General: Patient is alert and awake, in no acute distress at rest but appears to be weak. Her most recent vital signs revealed a blood pressure of 130/62 with a pulse of 103, respirations 20 and her maximum temperature is 96 degrees Fahrenheit on room air. Examination of the head: Atraumatic. Neck is supple. Lungs do not reveal any wheezing and no crackles heard. Heart examination revealed regular heart sounds without gallops. The PMI is not displaced. There is no rub. Abdomen is flat. Extremities reveal no pedal edema. Neurologic examination was limited but no focal deficits. LABORATORY DATA: BNP done today revealed a sodium of 131, potassium 3.4, chloride 98, CO2 20, BUN 36, creatinine 3.2, GFR of 15.0, fasting glucose 99 and calcium 6.7. Liver enzymes reveal a total bilirubin of 0.9, AST 14, ALT 9, alkaline phosphatase 68, album 2.5. Lactic acid is 2.7 and on admission it was 8.4. CBC done today, 04/06/2021 reveled a WBC of 15.8, hemoglobin 9.1, hematocrit 26.8 and platelets 171,000. On admission, WBC was 28.8 thousand. Hemoglobin and hematocrit were 8.8 and 28.7 respectively. Random vancomycin level today was 11.8. PT was 21.8 with an INR of 1.8 and a PTT of 36.9. Blood culture is positive for gram positive rods of bacillus species. Respiratory panel was negative. Gastrointestinal tract panel also was negative for multiplex nuclei PCR. Echo done on 04/05/2021 revealed a normal global left ventricular systolic function, estimated 60-65%, no specific valvular heart disease. Both the left atrium and the right atrium were normal in size. Electrocardiogram on admission was revealed sinus tachycardia at 118 beats per minute with nonspecific ST-T abnormalities as well as PVCs and LVH findings. Serum troponins were 0.44, 0.28, 0.23, 0.18 and 0.11. IMPRESSION: Abnormal serum troponin in this 75-year-old unfortunate woman with multiple comorbid conditions including renal failure and yesterday was in septic shock. She is currently doing well, off IV pressors. There is no report of chest pain. Her echocardiogram was benign with a normal LVEF without any significant wall motion abnormalities. The elevated serum troponin is probably related to type 2 NH that is secondary to demand ischemia, currently not being treated. I think the major issues for her is to address her lymphoma. However, if her blood pressure remains stable, she can started on a small dose of a short-acting beta machelle, metoprolol tartrate. She also probably can be started on a baby aspirin daily, as well as a statin. It was a pleasure to participate in the care of Mrs. Susan Levin for her underlying cardiac condition. I will continue to monitor her along with you. She appears to be improving with current treatment.
[2021-04-07] MEDS: IPRATROPIUM 0.5MG/ALBUTEROL 2.5MG INH SOL UD 3ML (DUONEB) NEB SCH ×2 (07:32→13:23)
--- NOTE | 2021-04-07 08:15 | REP ---
INDICATION: dyspnea COMPARISON: 04/06/2021 TECHNIQUE: Portable AP view of the chest FINDINGS: Double-lumen catheter with tip in the right atrium. Mediastinum and cardiac silhouette are stable. Bilateral lower lobe airspace disease and pleural effusions are unchanged. No pneumothorax. Skeletal structures are stable. IMPRESSION: No significant change from prior examination. Continued bibasilar opacities and pleural effusions. <Electronically signed by Sacha Bashir > 04/07/21 0811
[2021-04-07] MEDS ORDERED: VANCOMYCIN HCL 500 MG in D5W MINI-BAG PLUS 100 ML IV ONE (09:00)
--- NOTE | 2021-04-07 09:55 | IPNPDOC ---
Date Seen The patient was seen on 04/06/21. Progress Note pt seen 04/06/21 catheter draining creatinine 3.2, not urologic in etiology ct shows normal kidneys and bladder thank you VS, I&O, 24H, [place] Vital Signs/I&O Vital Signs Date Time Temp Pulse Resp B/P (MAP) Pulse Ox O2 Delivery O2 Flow Rate FiO2 04/07/21 08:00 99.6 101 20 113/72 (86) 93 Room Air 04/07/21 04:50 3.0 I&O- Last 24 Hours up to 6 AM 04/07/21 06:00 Intake Total 1690.0 ml Output Total 1716 ml Balance -26.0 ml Laboratory Data 24H LABS Laboratory Tests 2 04/06/21 13:08: Hepatitis B Surface Antigen NEGATIVE, Hepatitis B Surface Antibody POSITIVE, Hepatitis B Core IgM Antibody NEGATIVE, Hepatitis C Antibody Index 0.0 04/06/21 20:20: Anion Gap 10, Glomerular Filtration Rate 37.1L, Calcium Level 6.6L 04/07/21 04:26: Blood Gas Bicarbonate Standard 20.3L, Arterial Blood pH 7.402, Arterial Blood Partial Pressure CO2 31.1L, Arterial Blood Partial Pressure O2 62.5L, Arterial Blood Total CO2 19.9L, Arterial Blood HCO3 18.9L, Arterial Blood Base Excess - 5.0L, Arterial Blood Oxygen Saturation 91.2L 04/07/21 04:35: Neutrophils (%) (Auto) , Nucleated Red Blood Cells % (auto) 0.2H, Neutrophils 71H, Band Neutrophils 18H, Lymphocytes (Manual) 7L, Monocytes (Manual) 1, Eosinophils (Manual) 1, Basophils (Manual) 1, Metamyelocytes 1H, Polychromasia 1+, Anisocytosis 1+, Platelet Estimate DECREASED 04/07/21 04:36: Anion Gap 12, Glomerular Filtration Rate 23.2L, Calcium Level 8.6#L, Magnesium Level 1.8, Total Bilirubin 1.3H, Aspartate Amino Transf (AST/SGOT) 4L, Alanine Aminotransferase (ALT/SGPT) 9L, Alkaline Phosphatase 124H, Total Protein 5.8#L, Albumin 2.6L, Albumin/Globulin Ratio 0.8L 04/07/21 07:25: Lactic Acid Level 2.6*H, Vancomycin Level Trough 15.0 CBC/BMP Laboratory Tests 04/06/21 20:20 04/07/21 04:35 04/07/21 04:36 Microbiology Microbiology 04/07/21 Blood Culture, Received Pending 04/07/21 Blood Culture, Received Pending 04/06/21 Gastrointestinal Tract Panel (PCR) - Final, Complete 04/06/21 Stool Occult Blood (NIKKI) - Final, Complete 04/06/21 Urine Culture - Final, Complete 04/05/21 Blood Culture - Preliminary, Resulted No growth after 24 hours . All specim... 04/05/21 Blood Culture - Preliminary, Resulted No growth after 24 hours . All specim... 04/05/21 Stool Occult Blood (NIKKI) - Final, Complete 04/04/21 Respiratory Virus Panel (PCR) (NIKKI) - Final, Complete 04/04/21 Blood Culture - Preliminary, Resulted No Growth after 48 hours. All Specime... 04/04/21 Blood Culture - Final, Complete Bacillus Sp., Not Anthracis IVETH GHOSH MD Apr 07, 2021 09:55
[2021-04-07] MEDS: PANTOPRAZOLE 40MG VIAL (C9113 PER 1) IV SCH (10:06)
[2021-04-07] MEDS: HEPARIN SOD (PORCINE) 5000UNITS/ML 1ML VIAL/SYRINGE SQ SCH ×2 (10:06→21:18)
--- NOTE | 2021-04-07 12:14 | CCN ---
CRITICAL CARE NOTE DATE: 04/07/2021 SUBJECTIVE: The patient is seen in the intensive care unit. This is hospital day #4, ICU day #4. She has a right subclavian catheter changed to a Tri-Flow catheter on 04/06. She did tolerate dialysis well last evening. She had some respiratory distress in the night, but is better at this point. OBJECTIVE: VITAL SIGNS: Her temperature is 99.6, T-max for the past 24 hours 101, pulse rate 101, respirations 20, blood pressure 113/72. INTAKE AND OUTPUT: For the past 24 hours, 2590 in and 1611 out; since midnight, 0 in and 125 out. Her central venous pressure now measures 10. HEENT: Her oral mucosa is pink. NECK: Supple. There is palpable adenopathy. Jugular veins are distended. The right subclavian catheter site is clean. HEART: Sounds are regular. RESPIRATORY: Breath sounds with rales right greater than left. Chest is symmetric. No accessory muscle engagement. ABDOMEN: Soft. EXTREMITIES: Show palpable adenopathy in the groin. There is no edema. DIAGNOSTIC STUDIES: Her white cell count is up today at 21.3, hemoglobin 9.6, hematocrit 29.1, platelet count down to 129,000. Sodium 136, potassium 3.7, chloride 102, CO2 of 22, BUN 17, creatinine 2.19, glucose 138. PH of 7.40, pCO2 of 31, pO2 of 62. Chest x-ray shows tubes and lines in good position. There is persistence of some edema and possibly a small right pleural effusion. ASSESSMENT AND PLAN: 1. The primary problem requiring critical attention is shock. The patient's pressors have been able to weaned off. With volume resuscitation, her central venous pressure is now generous at 10. We will discuss fluid volume status with nephrology. She is not scheduled for dialysis again at this point. 2. Acute kidney injury. She tolerated dialysis yesterday and actually made some urine in the night to IV Lasix. Creatinine is, however, elevated. 3. Lymphoma. Pathology indicates T-cell variety and the plan per the attending hospitalist service is for transfer to [facility] tomorrow for inpatient chemotherapy for this aggressive disease. 4. Infectious disease. The source of her infection is not entirely clear at this point. She is being treated with Zosyn and vancomycin and is responding. 5. Deep vein thrombosis (DVT) prophylaxis being addressed with sequential hose. I have reviewed the case at bedside with the attending hospitalist. I have updated the intensive care unit (ICU) nursing team on the patient's status and care plans for the day. CRITICAL CARE TIME: 67 minutes spent in the provision of bedside critical care and coordination, excluding any time for the performance of procedures.
--- NOTE | 2021-04-07 18:54 | IPNPDOC ---
Date Seen The patient was seen on 04/07/21. Progress Note SUBJECTIVE: Patient seen, examined at bedside. Doing well. She is alert and oriented 4. Apparently patient had some respiratory distress overnight with hypoxia, but has really resolved since after nebulizer treatment. She is currently not in respiratory distress. OBJECTIVE PHYSICAL EXAMINATION: VITAL SIGNS: please see below General: NAD, comfortable HEENT: PERRLA, EOMI, sclerae clear Neck: profound swelling of neck and parotid glands Respiratory: lungs CTAB, no wheeze, no rales, no crackles CVS: RRR, normal S1, S2, no murmurs Abdo: soft, no masses, no hepatosplenomegaly, BS+, no rebound tenderness. R groin swelling, now improved Extremities: no edema, pulses 2+ MSK: no joint deformities, normal ROM Neuro: no focal neuro deficits, moving all 4 extremities, CN2-12 intact. Strength 5/5 in all 4 extremities. No nystagmus. Psych: calm, cooperative, AAO x 3 LABORATORY DATA, IMAGING STUDIES, MICROBIOLOGY: Please see below. Echocardiogram: Ordered on 04/05/21 - review. Grossly normal exam. DVT prophylaxis ordered?: SCDs and teds ASSESSMENT AND PLAN: This is a 75 female with past medical history of COPD 3. Chronic diastolic heart failure, idiopathic pulmonary fibrosis, suspected ly mphoma, currently undergoing workup, essential hypertension, recently admitted from March 21 of March 3 for the management of pneumonia and bilateral pleural effusions as well as acute kidney injury. The Patient was discharged home on by mouth antibiotics. Was found unresponsive by neighbors called 911. Diagnosed with septic shock. Patient admitted to ICU for management of septic shock due to unknown source, as well as acute renal failure. PROBLEMS: #Septick shock, source unclear: possible intrabdominal/pelvic abscess vs c diff colitis - admitted with hypotension, fever, elevated lactic acid. - presently on levophed via peripheral line, last MAP 59. - placed computer training specialist consult with Dr. Araujo, recommendations and assistance greatly appreciated - give additional 1L LR bolus (total 3L), c/w maintenance LR - s/p Central Line placement - f/u blood cultures. UA not suggestive of infection - presently oliguric, made ~[address] torres for critical monitoring. - order non contrast CT chest and CT abdo pelvis. - Chest imaging shows improvement in parenchymal opacities and bilateral pleural effusions from prior - CT abdo pelvis shows stable 6.7 cm L adnexal structure, possible extending from L ovary, possible necrotic lymph node (known hx of lymphoma) - c/w IV zosyn and vancomycin - will start on PO vancomycin 125 mg PO q6h preemptively given recent use of Abx, and hospitalization, with diarrhea x 3 today. - Dr. Chapman has been consulted. Recs are greatly appreciated. Acute Renal Failure upon CKD3 - continues to be oliguric - insert torres catheter - assisted by Urology - c/w fluid resuscitation, s/p 3L LR, maintenance LR at 125 cc/r - order renal US - no hydronephrosis - nephrology consult placed - Patient dialyzed today Elevated troponin - Trop 0.44, no chest pain, no ST elevation on EKG - trended down - in setting of septic shock, anemia - will c/w IVF, transfuse 2 units of prbc - cardiology consult with Dr. Polk placed, for now defer ASA, AC due to anemia - 2D echo reviewed, grossly normal exam - likely type II MD per Dr. Polk. -Recommend to start low-dose beta machelle. We'll start metoprolol 12.5 twice a day as well as baby aspirin 81 mg daily, as well as low-dose atorvastatin 10 mg daily at bedtime. L adnexal mass - possible abscess? source of sepsis - CT abdo pelvis showing 6.7 L adnexal mass, possible ovarian vs LN - d/w Dr. Mera, DIRECTOR OF LABOR RELATIONS consult placed. Recommendations are greatly appreciated. - reviewed consult, no suspicion for pelvic abscess - will c/w vanc and zosyn at this time Suspected Lymphoma: - LN biopsy 02/12/21 suspicion for lymphona, possible T cell per pathologist Dr. Lopez - excisional bx on 03/29/21 currently pending, patient has follow up [facility] oncology - possibly immunocompromised, setting of septic shock on this admission - suspect necrotic LNs, progression of adenopathy - Dr. Shepard recommending transfer to facility with ability for inpatient chemotherapy - D/w Oncology at [facility]. Accepted for transfer, likely 04/08/21 - suggested bridging therapy with solumedrol 1g daily x 3 days, but to monitor for tumor lysis syndrome - unfortunately we do not carry rasburicase on formulary - decision to continue to stabilize from sepsis standpoint and transfer to [facility] acute exacerbation of HFpEF - last echo 03/19 - G1DD. No RWMA. - moderate pulmonary HTN - mod AV sclerosis wihtout stenosis. - small posterior pericardial effusion and smaller anterior effusion 4 mmg anteriorl and 2 mm small collection behind R atria. No cardiac chamber compression, or evidence of tamponade. - mild fluid overload from IVF resuscitation - sinus tachycardic to 120s. - HD removed 1.5L of fluid HTN - hold amlodipine Idiopathic pulm fibrosis - f/u pulm OP GI ppx - pantoprazole IV 40 mg daily DVT ppx: SCDs and TEDs. Avoid chemoppx at this time. VS, I&O, 24H, Fishbone Vital Signs/I&O Vital Signs Date Time Temp Pulse Resp B/P (MAP) Pulse Ox O2 Delivery O2 Flow Rate FiO2 04/07/21 16:00 97.8 16 04/07/21 15:00 86 148/83 (104) 100 Room Air 04/07/21 04:50 3.0 I&O- Last 24 Hours up to 6 AM 04/07/21 06:00 Intake Total 1690.0 ml Output Total 1716 ml Balance -26.0 ml Laboratory Data 24H LABS Laboratory Tests 2 04/06/21 20:20: Anion Gap 10, Glomerular Filtration Rate 37.1L, Calcium Level 6.6L 04/07/21 04:26: Blood Gas Bicarbonate Standard 20.3L, Arterial Blood pH 7.402, Arterial Blood Partial Pressure CO2 31.1L, Arterial Blood Partial Pressure O2 62.5L, Arterial Blood Total CO2 19.9L, Arterial Blood HCO3 18.9L, Arterial Blood Base Excess - 5.0L, Arterial Blood Oxygen Saturation 91.2L 04/07/21 04:35: Neutrophils (%) (Auto) , Nucleated Red Blood Cells % (auto) 0.2H, Neutrophils 71H, Band Neutrophils 18H, Lymphocytes (Manual) 7L, Monocytes (Manual) 1, Eosinophils (Manual) 1, Basophils (Manual) 1, Metamyelocytes 1H, Polychromasia 1+, Anisocytosis 1+, Platelet Estimate DECREASED 04/07/21 04:36: Anion Gap 12, Glomerular Filtration Rate 23.2L, Calcium Level 8.6#L, Magnesium Level 1.8, Total Bilirubin 1.3H, Aspartate Amino Transf (AST/SGOT) 4L, Alanine Aminotransferase (ALT/SGPT) 9L, Alkaline Phosphatase 124H, Total Protein 5.8#L, Albumin 2.6L, Albumin/Globulin Ratio 0.8L 04/07/21 07:25: Lactic Acid Level 2.6*H, Vancomycin Level Trough 15.0 04/07/21 11:50: Lactic Acid Followup at 4 Hours 5.9*H 04/07/21 14:40: Lactic Acid Level 5.4*H CBC/BMP Laboratory Tests 04/06/21 20:20 04/07/21 04:35 04/07/21 04:36 Microbiology Microbiology 04/07/21 Blood Culture, Received Pending 04/07/21 Blood Culture, Received Pending 04/06/21 Gastrointestinal Tract Panel (PCR) - Final, Complete 04/06/21 Stool Occult Blood (NIKKI) - Final, Complete 04/06/21 Urine Culture - Final, Complete 04/05/21 Blood Culture - Preliminary, Resulted No growth after 24 hours . All specim... 04/05/21 Blood Culture - Preliminary, Resulted No growth after 24 hours . All specim... 04/05/21 Stool Occult Blood (NIKKI) - Final, Complete 04/04/21 Respiratory Virus Panel (PCR) (NIKKI) - Final, Complete 04/04/21 Blood Culture - Preliminary, Resulted No Growth after 48 hours. All Specime... 04/04/21 Blood Culture - Final, Complete Bacillus Sp., Not Anthracis SERGIO JOHANSEN MD Apr 07, 2021 18:54
[2021-04-07] MEDS ORDERED: ATORVASTATIN 10 MG TAB PO SCH (21:00)
[2021-04-07] MEDS: METOPROLOL TART 12.5 MG PER 1/2 TAB PO SCH (21:19)
[2021-04-08] VITALS (13 sets, daily range): BP systolic 124–181; BP diastolic 61–90
[2021-04-08] MEDS: PIPERACILLIN/TAZOBACTAM SOD 2.25 GM in D5W MINI-BAG PLUS 50 ML IV SCH ×3 (03:31→16:53)
[2021-04-08 06:46] LABS: HEMATOCRIT 21.8 % (36.0-47.0); MEAN CORPUSCULAR HEMOGLOBIN 27.9 pg (27.0-33.0); MEAN CORPUSCULAR HGB CONC 33.5 g/dl (32.0-36.5); MEAN CORPUSCULAR VOLUME 83.2 fl (80.0-96.0); RED BLOOD COUNT 2.62 10^6/uL (4.00-5.40); WHITE BLOOD COUNT 15.6 10^3/uL (4.0-10.0)
[2021-04-08 06:59] LABS: ALBUMIN 2.2 GM/DL (3.2-5.2); ALT/SGPT 8 U/L (12-78); BLOOD UREA NITROGEN 26 MG/DL (7-18); CALCIUM LEVEL 8.4 MG/DL (8.8-10.2); CARBON DIOXIDE LEVEL 21 MEQ/L (21-32); CHLORIDE LEVEL 102 MEQ/L (98-107); CREATININE FOR GFR 2.51 MG/DL (0.55-1.30); GLOMERULAR FILTRATION RATE 19.8 (>39); GLUCOSE, FASTING 107 MG/DL (70-100); INR 1.15; PARTIAL THROMBOPLASTIN TIME 32.2 SECONDS (24.2-38.5); POTASSIUM SERUM 3.2 MEQ/L (3.5-5.1); SODIUM LEVEL 136 MEQ/L (136-145); TOTAL PROTEIN 5.4 GM/DL (6.4-8.2)
[2021-04-08 07:00] LABS: FIBRINOGEN 202 MG/DL (221-452)
[2021-04-08] MEDS: VANCOMYCIN ORAL SOL 250MG/5ML ORAL SYRINGE PO SCH ×3 (07:02→18:43)
[2021-04-08 07:29] LABS: PLATELET COUNT, AUTOMATED 68 10^3/uL (150-450)
[2021-04-08 07:30] LABS: HEMOGLOBIN 7.3 g/dl (12.0-15.5)
[2021-04-08 07:36] LABS: D-DIMER QUANT > 4000.00 ng/ml (<500)
[2021-04-08 07:41] LABS: EOSINOPHILS 2 % (0-3); LYMPHOCYTES 3 % (16-44); MONOCYTES 2 % (0-5); NEUTROPHILS 82 % (28-66)
[2021-04-08 07:42] LABS: ANISOCYTOSIS 2+; PLATELET ESTIMATE DECREASED (NORMAL)
[2021-04-08 07:44] LABS: POLYCHROMASIA 1+; SCHISTOCYTES 2+
[2021-04-08 07:48] LABS: OVALOCYTES 1+
[2021-04-08] MEDS ORDERED: POTASSIUM CHLORIDE 10 MEQ SR TABLET PO ONE (08:00)
--- NOTE | 2021-04-08 08:33 | IPNPDOC ---
Date Seen The patient was discussed with hospitalist on 04/08/21 at 730AM Progress Note HEMATOLOGY/ONCOLOGY Difficult case patient remains critically ill over septic shock and off pressors on hemodialysis with last dose given yesterday The concern for tumor lysis is less worrisome as on HD. May safely proceed with 1 gram solumedrol today In DIC Low fibrinogen level Proceed with 2 units FFP this AM Proceed with PRBC transfusion for grade 4 anemia INR was 1.8 on 04/06, now 1.15 Cryoprecipitate not needed at this time. platelet drop not from HIT, low T-score and HIT antibody negative 03/27/21 hep B and C negative Planned transfer to [facility] for induction therapy for her aggressive t-cell lymphoma (path not finalized yet-verbal only) Second biopsy 03/30 Overall prognosis absolutely dismal Non-curable disease Recommend checking Quantitative Immunoglobulins, suspect would be candidate for IV IgG Less than 50% chance of survival from inpatient admission given disease biology, clinical course and trajectory of decline. Would proceed with transfer, can hopefully improve patients condition in the short-term. At [facility] would attempt palliative therapy as expected response nearly 100%, the problem is that the responses are never durable. VS, I&O, 24H, Fishbone Vital Signs/I&O Vital Signs Date Time Temp Pulse Resp B/P (MAP) Pulse Ox O2 Delivery O2 Flow Rate FiO2 04/08/21 04:00 98.4 80 35 133/61 (85) 96 Room Air 04/07/21 04:50 3.0 I&O- Last 24 Hours up to 6 AM 04/08/21 06:00 Intake Total 1160 ml Output Total 1810 ml Balance -650 ml Laboratory Data 24H LABS Laboratory Tests 2 04/07/21 11:50: Lactic Acid Followup at 4 Hours 5.9*H 04/07/21 14:40: Lactic Acid Level 5.4*H 04/08/21 06:12: Prothrombin Time 15.0H, Prothromb Time International Ratio 1.15, Activated Partial Thromboplast Time 32.2, Fibrinogen 202L, D-Dimer, Quantitative > 4000.00H, Anion Gap 13, Glomerular Filtration Rate 19.8L, Calcium Level 8.4L, Magnesium Level 1.8, Total Bilirubin 1.0, Aspartate Amino Transf (AST/SGOT) < 3L, Alanine Aminotransferase (ALT/SGPT) 8L, Alkaline Phosphatase 89, Total Protein 5.4L, Albumin 2.2L, Albumin/Globulin Ratio 0.7L, Random Vancomycin Level 16.8 04/08/21 06:15: Neutrophils (%) (Auto) , Nucleated Red Blood Cells % (auto) 0.2H, Neutrophils 82H, Band Neutrophils 11, Lymphocytes (Manual) 3L, Monocytes (Manual) 2, Eosinophils (Manual) 2, Polychromasia 1+, Basophilic Stippling 1+, Anisocytosis 2+, Macrocytosis 1+, Schistocytes 2+, Ovalocytes 1+, Platelet Estimate DECREASED, Immature Platelet Fraction 6.4, Whole Blood Ionized Calcium 4.7 CBC/BMP Laboratory Tests 04/08/21 06:12 04/08/21 06:15 Microbiology Microbiology 04/07/21 Blood Culture - Preliminary, Resulted No growth after 24 hours . All specim... 04/07/21 Blood Culture - Preliminary, Resulted No growth after 24 hours . All specim... 04/06/21 Gastrointestinal Tract Panel (PCR) - Final, Complete 04/06/21 Stool Occult Blood (NIKKI) - Final, Complete 04/06/21 Urine Culture - Final, Complete 04/05/21 Blood Culture - Preliminary, Resulted No Growth after 48 hours. All Specime... 04/05/21 Blood Culture - Preliminary, Resulted No Growth after 48 hours. All Specime... 04/05/21 Stool Occult Blood (NIKKI) - Final, Complete 04/04/21 Respiratory Virus Panel (PCR) (NIKKI) - Final, Complete 04/04/21 Blood Culture - Preliminary, Resulted No Growth after 72 hours. All specime... 04/04/21 Blood Culture - Final, Complete Bacillus Sp., Not Anthracis ETHAN MAO MD Apr 08, 2021 08:33
[2021-04-08] MEDS: ASPIRIN 81MG ENTERIC TABLET PO SCH ×2 (09:00→09:02)
[2021-04-08] MEDS ORDERED: VANCOMYCIN HCL 500 MG in D5W MINI-BAG PLUS 100 ML IV ONE (09:00)
[2021-04-08] MEDS ORDERED: PANTOPRAZOLE 40MG TAB (PROTONIX) PO SCH (09:00)
[2021-04-08] MEDS ORDERED: methylPREDNISolone 1,000 MG, VIAL MATE ADAPTER 1 EACH in NS 250 ML IV ONE (09:00)
[2021-04-08] MEDS: METOPROLOL TART 12.5 MG PER 1/2 TAB PO SCH (09:02)
[2021-04-08] MEDS: HEPARIN SOD (PORCINE) 5000UNITS/ML 1ML VIAL/SYRINGE SQ SCH (09:03)
--- NOTE | 2021-04-08 11:03 | IPN ---
PROGRESS NOTE DATE: 04/07/2021 SUBJECTIVE: Ms. Susan Levin was seen earlier today. She was lying supine in bed, in no acute distress and having hemodialysis. She was initially seen because of abnormal serum troponin in the setting of urosepsis and septic shock. Ms. Levin has been off any pressors for the last 12 to 24 hours. She never had any chest pain. She is supine in no acute distress at rest. There is no report of dizziness or lightheadedness. There is no report of any arrhythmias on telemetry. There is no report of bleeding. According to the dialysis nurse, she is tolerating it well. Her blood pressure has been stable according to the ICU nurse. PHYSICAL EXAMINATION: The patient is alert and awake, in no acute distress at rest and her vital signs when I saw her revealed a blood pressure of 131/79 with a pulse of 79, respirations 20 and temperature was 98.9 degrees Fahrenheit with an oxygen saturation of 97% on room air. Examination of the head: Atraumatic. Neck is supple. The heart examination revealed a regular heart sound without gallops. The PMI is not displaced. There is no rub. The lungs appear to be clear on examination. Abdomen is soft. Extremities revealed no pedal edema. LABORATORY DATA: Complete blood count (CBC) done today revealed a WBC of 21.8, hemoglobin 9.6, hematocrit 29.1 and platelets 129,000. Yesterday, complete blood count (CBC) revealed a WBC of 15.3 with a hemoglobin of 9.1, hematocrit 26.8 and platelets 171,000. Basic metabolic panel (BMP) done today revealed a sodium of 136, potassium 3.7, chloride 102, Co2 22, BUN 17, creatinine 2.19, fasting glucose 138, calcium 8.6. Some lactic acid has been up and down from 2.6 in the cabinetmaker helper hours at about 7:25 and about 11:50 it was 5.9. Liver enzymes revealed a total bilirubin of 1.3, AST 4.9, ALT 9, alkaline phosphatase is 124, total protein 5.8, albumin 2.6. IMPRESSION: Abnormal serum troponin in this 75-year-old woman with a history of hypertension, hyperlipidemia, chronic kidney disease, but asymptomatic without any chest pain and no electrocardiogram (EKG) changes. It was thought to be related to demand ischemia. The patient's blood pressure seems to be stable; and if it continues the same, we can start on a short-acting beta-machelle at a small dose and a baby aspirin. If there is no underlying liver disease, we should consider starting her on a statin. She had an echocardiogram done and it revealed a normal global left ventricular systolic function. Further cardiac workup can be done as an outpatient. Her major issue now is she needs to be treated for her lymphoma. It seems that the plan is to transfer her by tomorrow or Friday to [facility] for inpatient treatment. It was a pleasure to participate in the care of Ms. Susan Levin for her underlying cardiac condition. I will continue to monitor her along with your. She now appears to be stable from a cardiac point of view.
--- NOTE | 2021-04-08 11:30 | IPN ---
NEPHROLOGY PROGRESS NOTE DATE: 04/07/2021 SUBJECTIVE: Miss Levin is seen this morning at her bedside. She is sitting in the chair at the time of my visit. She is still very frail and feels tired. She remains oliguric despite diuretics yesterday. The patient was dialyzed yesterday due to oliguric acute renal failure. OBJECTIVE: PHYSICAL EXAMINATION: VITAL SIGNS: Temperature 98.9 degrees Fahrenheit, heart rate 80 per minute, respiratory rate 22 per minute, blood pressure 126/70 mm of mercury and oxygen saturation is 96% on room air. HEENT: Head is atraumatic. There is no oral thrush or ulcers. NECK: Supple and JVD is about 10 cm above the sternal angle. She has a right subclavian catheter in place. HEART: Regular. LUNGS: Diminished breath sounds bilaterally. ABDOMEN: Soft, protuberant and nontender. BACK: 2+ edema. EXTREMITIES: Without any cyanosis or clubbing. Peripheral edema is noticed on both lower extremities. NEUROLOGICAL: She is awake and without any focal deficits. LABORATORY STUDIES: Today's labs show a WBC count of 21.3, hemoglobin 9.6 and hematocrit 29.1, platelet count 129. Sodium 136, potassium 3.7, BUN 17 and creatinine 2.19. Glucose 138 and calcium 8.6. Lactic acid level is 2.6. PROBLEMS: 1. Oliguric acute renal failure - The patient remains oliguric with only minimal urine output in the Evans catheter. Yesterday her total urine output was about 110 mL. The patient was dialyzed yesterday and at present her electrolytes are stable and she does not have any evidence of metabolic acidosis, however she is still volume overloaded. I am going to arrange dialysis for ultrafiltration. 2. Hypervolemia - The patient has generalized peripheral edema, bilateral pleural effusions and ascites. I have arranged for ultrafiltration for her and we will try to remove about 1.5 liters of fluid as tolerated. 3. Lactic acidosis - The patient is hemodynamically stable and currently not on any pressors. This is most likely related to her lymphoproliferative disorder. 4. Septic shock - The patient is currently without any pressors and blood pressure is stable. She is still in oliguric renal failure with hypervolemia. She has been dialysis dependent at present. She was dialyzed yesterday and will require hemodialysis again today for ultrafiltration. 5. Suspected lymphoma at present the patient has been treated for sepsis and there is consideration for possible transfer for chemotherapy.
[2021-04-08] MEDS ORDERED: ATOR1TAB19 PO (12:31)
[2021-04-08] MEDS ORDERED: METO1TAB87 PO (12:31)
[2021-04-08] MEDS ORDERED: PANT40TA29 PO (12:31)
[2021-04-08] MEDS ORDERED: FIRV50SO PO (12:31)
--- NOTE | 2021-04-08 12:32 | DS.PDOC ---
Discharge Summary General Date of Admission Apr 04, 2021 at 20:45 Date of Discharge 04/08/21 Discharge Summary PROCEDURES PERFORMED DURING STAY: R Femoral central line placement by Dr. Araujo 04/05/21 R subclavian central central line placement by Archana 04/05/21 R subclavina Tri-Lumen dialysis catheter placement 04/06/21 COMPLICATIONS/CHIEF COMPLAINT: Alt Mental Status. HISTORY OF PRESENT ILLNESS: "Ms. Levin, a 75-year-old female, was last admitted from March 21 to March 31 for management of pneumonia, bilateral pleural effusions and FELIZ. According to Dr. Chavez her neighbor called EMS because the patient was unresponsive. Initial work-up in the ER was remarkable for SIRS without a clear source. At the time of my evaluation the patients mental status had improved. She reports being discharged home with antibiotics, which she has been taking. She subsequently developed diarrhea which she attributed to the antibiotics and reports feeling very weak after which she attributes to being bedbound most of her recent hospital stay. She thinks that she ate yesterday but was unable to provide additional details about the events leading up to her arrival in the ER. PAST MEDICAL/ SURGICAL HISTORY: Essential hypertension, CKD3, chronic HFpEF, idiopathic pulmonary fibrosis, osteoporosis, Anemia of Chronic disease, dyslipidemia, unspecified type of lymphoma (the final path report is pending, s he has appointment scheduled with her oncologist as scheduled for April 16), Sarcopenia/protein calorie malnutrition (BMI of 16.9), partial right thyroidectomy, surgical excision of basal cell carcinoma of the left nostril SOCIAL HISTORY: She has 2 daughters and 1 son, does not smoke, does not drink, does not use recreational drugs and lives alone FAMILY HISTORY: Her father who is had hypertension/her mother is had a traumatic intracerebral hemorrhage/her siblings had hypertension and diabetes." HOSPITAL COURSE: #Septick shock, source unclear: possible intrabdominal/pelvic abscess vs c diff colitis - admitted with hypotension, fever, elevated lactic acid. - was able to be weaned from levaquin - consulted infant toddler lead teacher services, recently attended by Dr. Magaña - f/u blood cultures. UA not suggestive of infection - presently oliguric, made ~[address] torres for critical monitoring. - order non contrast CT chest and CT abdo pelvis. - Chest imaging shows improvement in parenchymal opacities and bilateral pleural effusions from prior - CT abdo pelvis shows stable 6.7 cm L adnexal structure, possible extending from L ovary, possible necrotic lymph node (known hx of lymphoma). Further, pelvic US showed no pelvic abscess. - this mass has been examined by - c/w IV zosyn and vancomycin (day 5), PO vancomycin (Day 5) preemptively given recent use of Abx, and hospitalization, with hx of diarrhea x 3 today. #DIC - elevated D dimer, low fibrinogen. Thrombocytopenia and anemia - discussed with valve maker Dr. Alvarez - to transfuse FFP and PRBC - will continue with prophylactic heparin due to hypercoagulable state. - patient was able to receive 1 unit FFP and 1 unit pRBC prior to transfer to [facility] Acute Renal Failure upon CKD3 - continues to be oliguric - torres catheter in placed - c/w fluid resuscitation, s/p 3L LR, maintenance LR at 125 cc/r - order renal US - no hydronephrosis - nephrology consult placed - patient receiving intermittent HD Elevated troponin - Trop 0.44, no chest pain, no ST elevation on EKG - trended down - in setting of septic shock, anemia - cardiology consult with Dr. Polk place - 2D echo reviewed, grossly normal exam - likely type II MA per Dr. Polk. -Recommend to start low-dose beta machelle. We'll start metoprolol 12.5 twice a day as well as baby aspirin 81 mg daily, as well as low-dose atorvastatin 10 mg daily at bedtime. - ASA held on 04/08/21 due to anemia in setting of DIC L adnexal mass - possible abscess? source of sepsis - CT abdo pelvis showing 6.7 L adnexal mass, possible ovarian vs LN - d/w Dr. Mera, BEAD MAKER consult placed. Recommendations are greatly appreciated. - reviewed consult, no suspicion for pelvic abscess - will c/w vanc and zosyn at this time Suspected Lymphoma: - LN biopsy 02/12/21 suspicion for lymphoma, possible T cell per pathologist Dr. Lopez - excisional bx on 03/29/21 currently pending. FINAL PATH WAS SENT TO [facility], in [place], [place]. - possibly immunocompromised, setting of septic shock on this admission - suspect necrotic LNs, progression of adenopathy - Dr. Shepard recommending transfer to facility with ability for inpatient chemotherapy - patient has received 1g IV solumedrol on 04/08/21 (1 of 3 doses) acute exacerbation of HFpEF - last echo 03/19 - G1DD. No RWMA. - moderate pulmonary HTN - mod AV sclerosis without stenosis. - small posterior pericardial effusion and smaller anterior effusion 4 mmg anteriorl and 2 mm small collection behind R atria. No cardiac chamber compression, or evidence of tamponade. - fluid removed with intermitted hemodialsysi via R subclavian Tri-Flow catheter. HTN - holding in setting of septic shock Idiopathic pulm fibrosis - f/u pulm OP GI ppx - pantoprazole IV 40 mg daily DISCHARGE MEDICATIONS: Please see below. ALLERGIES: Please see below. PHYSICAL EXAMINATION ON DISCHARGE: General: NAD, comfortable HEENT: PERRLA, EOMI, sclerae clear Neck: submandibular and parotid swelling improved. R subclavian Tri-Flow catheter is in place. Minimal surround ecchymosis. Respiratory: diminished breath sounds at bilateral lung bases. No rales, no crackles, no wheeze CVS: RRR, normal S1, S2, no murmurs Abdo: soft, no masses, no hepatosplenomegaly, BS+, no rebound tenderness. R groin swelling adenopathy persists but has improved. Extremities: no edema, pulses 2+ MSK: no joint deformities, normal ROM Neuro: no focal neuro deficits, moving all 4 extremities, CN2-12 intact. Strength 5/5 in all 4 extremities. No nystagmus. Psych: calm, cooperative, AAO x 3 LABORATORY DATA: Please see below. IMAGING: CT neck wo contrast (04/05/21): IMPRESSION: 1. There is enlargement of both parotid glands demonstrating intraparotid lymph nodes and or pleomorphic adenomas. There are inflammatory changes in the subcutaneous soft tissues overlying the parotid glands and extending along the posterior aspect of the neck bilaterally. Finding may indicate the presence of cellulitis in the appropriate clinical setting. 2. Extensive bilateral lymphadenopathy extending from level 2 to level 4 regions bilaterally. These measure up to 2.1 cm in the left supraclavicular fossa. 3. Status post resection right lobe of the thyroid gland. 4. Partially visualized mediastinal lymphadenopathy demonstrated as well. Pelvic US (04/05/21): COMPARISON: CT ABD PELVIS W/O CONTRAST 04/05/2021 9:32 AM FINDINGS: Soft tissues: Unremarkable. No masses or collections in visualized area. Lymph nodes: Imaging of the right inguinal area demonstrates numerous inflammatory lymph nodes measuring up to 2.2 x 1.1 x 1.8 cm. Internal flow demonstrated. IMPRESSION: Multiple inflammatory lymph nodes in the right inguinal region. No abscess demonstrated. Renal US (04/05/21): FINDINGS: Multiple ultrasonographic images of the right kidney show the right kidney to measure 8 x 4.6 x 3.5 cm. The renal cortical echotexture is diffusely increased status quo. There are no masses. Subcentimeter sized cysts status quo. There is poor corticomedullary differentiation. There is no hydronephrosis. There are no perinephric fluid collections. Multiple ultrasonographic images of the left kidney show the left kidney to measure 9 x 4.2 x 4.3 cm. The renal cortical echotexture is diffusely increased status quo. There are no masses. Subcentimeter sized cysts status quo. There is poor corticomedullary differentiation. There is no hydronephrosis. There are no perinephric fluid collections. A trace amount of free fluid was seen in the abdomen. IMPRESSION: Evidence of medical renal disease and tiny subcentimeter sized cysts bilaterally as described above and unchanged from 03/21/2021. CT chest wo contrast (04/05/21); The bilateral pleural effusions along with areas of scattered consolidation and atelectasis (right greater than left) appear slightly improved as compared to most recent prior examination. No pneumothorax. Tracheobronchial tree is grossly patent. Reactive mediastinal and hilar lymph nodes along with significant bilateral axillary adenopathy again noted and unchanged. Further evaluation of the mediastinum demonstrates stable atherosclerotic changes to the thoracic aorta and coronary arteries without aortic aneurysm or cardiomegaly. No significant pericardial effusion. Surrounding musculoskeletal structures are intact and without acute osseous abnormality. IMPRESSION: Mild improvement to the bilateral effusions and parenchymal opacities. No change in the diffuse adenopathy. CT abdo pelvis wo contrast (04/05/21): FINDINGS: Liver, spleen, pancreas, bilateral adrenal glands and kidneys are essentially normal by noncontrast evaluation. Trace cholelithiasis without evidence for acute cholecystitis. The enteric system is without obstruction or obvious acute inflammatory process. Pelvis demonstrates Torres catheter in collapsed bladder along with stable appearance to the uterus and and adjacent left adnexal cystic structure measuring roughly 6.7 cm maximal diameter and unchanged. Marked diffuse retroperitoneal, pelvic and bilateral inguinal adenopathy is unchanged and most compatible with lymphoma. Small amount of ascites ascites and mesenteric stranding noted throughout the abdomen and pelvis is nonspecific. Musculoskeletal structures demonstrate stable degenerative changes without obvious acute process. IMPRESSION: 1. Stable significant adenopathy along with small amount of ascites and mesenteric stranding compatible with lymphoma. 2. Stable left adnexal cystic structure possibly gynecologic in origin extending from the left ovary. Differential diagnosis may less likely include enlarged necrotic lymph node given the patient's history of known lymphoma. CXR (04/04/21) 1. COPD. 2. Increased interstitial markings demonstrated bilaterally, consistent with chronic interstitial changes. No lobar or segmental infiltrates demonstrated. PROGNOSIS: guarded ACTIVITY: out of bed to chair DIET: 2g sodium diet DISCHARGE PLAN: Transfer to [facility] ICU for oncologic evaluation for inpatient chemotherapy. DISPOSITION: Transfer to [facility] DISCHARGE INSTRUCTIONS: . Please follow-up with your primary care doctor within 3-5 days . Please taking medications as prescribed. . If you develop bleeding, chest pain, shortness of breath, seizures, nausea, fevers, or otherwise worsening of your symptoms, please call 911 or return to the nearest emergency room ITEMS TO FOLLOWUP ON ON OUTPATIENT: Final pathology report - Lymph node excisional bx, sent to [facility] DISCHARGE CONDITION: Stable TIME SPENT ON DISCHARGE: 35 minutes Vital Signs/I&Os Vital Signs Date Time Temp Pulse Resp B/P (MAP) Pulse Ox O2 Delivery O2 Flow Rate FiO2 04/08/21 11:58 97.8 88 18 159/74 99 Room Air 04/07/21 04:50 3.0 I&O- Last 24 Hours up to 6 AM 04/08/21 05:59 Intake Total 1060 ml Output Total 1710 ml Balance -650 ml Laboratory Data Labs 24H Laboratory Tests 2 04/07/21 14:40: Lactic Acid Level 5.4*H 04/08/21 06:12: Prothrombin Time 15.0H, Prothromb Time International Ratio 1.15, Activated Part ial Thromboplast Time 32.2, Fibrinogen 202L, D-Dimer, Quantitative > 4000.00H, Anion Gap 13, Glomerular Filtration Rate 19.8L, Calcium Level 8.4L, Magnesium Level 1.8, Total Bilirubin 1.0, Aspartate Amino Transf (AST/SGOT) < 3L, Alanine Aminotransferase (ALT/SGPT) 8L, Alkaline Phosphatase 89, Total Protein 5.4L, Albumin 2.2L, Albumin/Globulin Ratio 0.7L, Random Vancomycin Level 16.8 04/08/21 06:15: Neutrophils (%) (Auto) , Nucleated Red Blood Cells % (auto) 0.2H, Neutrophils 82H, Band Neutrophils 11, Lymphocytes (Manual) 3L, Monocytes (Manual) 2, Eosinophils (Manual) 2, Polychromasia 1+, Basophilic Stippling 1+, Anisocytosis 2+, Macrocytosis 1+, Schistocytes 2+, Ovalocytes 1+, Platelet Estimate DECREASED, Immature Platelet Fraction 6.4, Whole Blood Ionized Calcium 4.7 04/08/21 08:19: Lactic Acid Level 3.9*H CBC/BMP Laboratory Tests 04/08/21 06:12 04/08/21 06:15 Microbiology Microbiology 04/07/21 Blood Culture - Preliminary, Resulted No growth after 24 hours . All specim... 04/07/21 Blood Culture - Preliminary, Resulted No growth after 24 hours . All specim... 04/06/21 Gastrointestinal Tract Panel (PCR) - Final, Complete 04/06/21 Stool Occult Blood (NIKKI) - Final, Complete 04/06/21 Urine Culture - Final, Complete 04/05/21 Blood Culture - Preliminary, Resulted No Growth after 48 hours. All Specime... 04/05/21 Blood Culture - Preliminary, Resulted No Growth after 48 hours. All Specime... 04/05/21 Stool Occult Blood (NIKKI) - Final, Complete 04/04/21 Respiratory Virus Panel (PCR) (NIKKI) - Final, Complete 04/04/21 Blood Culture - Preliminary, Resulted No Growth after 72 hours. All specime... 04/04/21 Blood Culture - Final, Complete Bacillus Sp., Not Anthracis Discharge Medications Scheduled Amlodipine Besylate (Amlodipine Besylate) 5 Mg Tablet, 10 MG PO DAILY, (Reported) Atorvastatin Calcium (Atorvastatin Calcium) 10 Mg Tablet, 10 MG PO QHS Cholecalciferol (Vitamin D3) (Vitamin D3) 1,000 Unit Tablet, 1,000 UNITS PO DAILY, (Reported) Famotidine (Famotidine) 20 Mg Tablet, 20 MG PO DAILY, (Reported) Ferrous Gluconate (Ferrous Gluconate) 324 Mg Tablet, 324 MG PO QPM, (Reported) Ibandronate Sodium (Ibandronate Sodium) 150 Mg Tablet, 150 MG PO QMONTH, (Reported) Metoprolol Tartrate (Metoprolol Tartrate) 25 Mg Tablet, 12.5 MG PO BID Pantoprazole Sodium (Pantoprazole Sodium) 40 Mg Tablet.dr, 40 MG PO DAILY Vancomycin HCl (Firvanq) 50 Mg/1 Ml Soln.recon, 125 MG PO Q6H Scheduled PRN Albuterol Sulfate (Proair Hfa) 8.5 Gm Hfa.aer.ad, 2 PUFF INH Q4H PRN for SHORTNESS OF BREATH, (Reported) Miscellaneous Medications [Patient Comment] , (Reported) MED REC COMPLETED VIA PREVIOUS DISCHARGE PAPERWORK (03/31/21) Allergies Coded Allergies: No Known Allergies (Unverified , 02/08/21) SERGIO JOHANSEN MD Apr 08, 2021 12:32
[2021-04-08 12:53] LABS: IMMUNOGLOBULIN G 1270 MG/DL (681-1648); IMMUNOGLOBULIN M 56.9 MG/DL (40-230)
--- NOTE | 2021-04-08 12:53 | CCN ---
CRITICAL CARE NOTE DATE: 04/08/2021 SUBJECTIVE: The patient was seen in the intensive care unit. This is hospital day 5, ICU day 5. She is out of bed this morning, eating small amounts, pressors had been weaned off and she tolerated dialysis. OBJECTIVE: Vital signs: Temperature 98, T-max 98.4, pulse rate 96, respirations 20, blood pressure 124/69, saturation of oxygen 98% on room air. Intake and output for the last 24 hours, 1060 in, 1077 out; since midnight, 100 in, 165 out. She is ill appearing. Her mucosa is moist. Neck is supple with adenopathy. Jugular veins are 1 cm above the sternal angle at 45 degrees. Carotid upstroke is brisk, no bruit. Heart sounds are regular without appreciable murmur. The right subclavian Tri-Flow catheter site is clean with minimal surrounding ecchymosis. Breath sounds are diminished bilaterally, but no focal signs are appreciated. Abdomen is soft, but tender to palpation. No palpable mass. There is adenopathy in the groin. No edema and nails are not clubbed. DIAGNOSTIC STUDIES: Sodium is 136, potassium is 3.2, chloride 102, Co2 21, BUN 26, creatinine 2.51, glucose 107. Lactic acid is down from 5.4 to 3.9. The calcium is 8.4, but the albumin is 2.2, AST 3, ALT 8, alkaline phosphatase 89. Her white cell count is down this morning at 15.6 with 82% neutrophils. Hemoglobin is also down to 7.3, hematocrit 21.8, platelet count is down at 68,000. Coagulation studies: The PT was 15, PTT 32 and INR of 1.15. Fibrinogen is down from 249 to 202. On review of medications, she is receiving Zosyn IV and oral vancomycin and has received a dose of 1 gm of Solu-Medrol today. ASSESSMENT: The primary problem requiring critical attention is shock. I suspect this is distributive secondary to infectious disease. Pressors have now been weaned and her blood pressure is adequate, becomes during dialysis. 1. Acute kidney injury: The patient tolerated dialysis reasonably well yesterday. 2. Disseminated intravascular coagulation (DIC): The fibrinogen is low and there is no evidence of active bleeding. She has received a unit of packed cells today for the anemia. 3. Lymphoma. Oncology consultation recommends inpatient chemotherapy as soon as practicable and transport to a facility where this is available is being facilitated. 4. Infectious disease. The specific etiology of infection is unclear, possibly diarrhea or possibly other. Her white cell count is down today and she has not had a fever on Zosyn and oral, as well as IV vancomycin. Will continue with these. The vancomycin levels are in acceptable range. 5. Deep venous thrombosis (DVT) prophylaxis being addressed with sequential hose with low-dose subcutaneous heparin. The patient's condition remains critical and ICU care remains appropriate. I have updated the ICU nurses on the patient's status and care plan for the day. The case has been reviewed with the attending hospitalist. 63 minutes were spent in the provision of bedside critical care and coordination, excluding any time for the performance of procedures.
--- NOTE | 2021-04-08 13:11 | IPN ---
NEPHROLOGY PROGRESS NOTE DATE: 04/08/2021 SUBJECTIVE: Mrs. Levin is seen this morning on her bedside. She is sitting in the chair at the time of my visit. She underwent hemodialysis yesterday for ultrafiltration and we were able to remove 1.5 liters of fluid without any difficulty. Her blood pressure has remained stable. Patient is feeling weak, but denies any fever or chills. She denies any nausea or vomiting. PHYSICAL EXAMINATION: Temperature 98.0 degrees Fahrenheit, heart rate 96 per minute, respiratory rate 20 per minute, blood pressure 124/69 mmHg, oxygen saturation 98% on room air. HEAD: Atraumatic. NECK: Supple and jugular venous distention (JVD) is mildly elevated. Her superficial neck veins are also prominent. She has a right subclavian hemodialysis catheter in place. HEART SOUNDS: Regular. LUNGS: Diminished breath sounds at bases. ABDOMEN: Protuberant, soft and nontender. Bowel sounds are normal. EXTREMITIES: Without any cyanosis or clubbing. Lower extremity edema is present. NEUROLOGIC: She is awake, alert and at her baseline mentation. LABORATORY DATA: Today's labs show WBC 15.6, hemoglobin 7.3, hematocrit 21.8, platelets 68. Sodium 136, potassium 3.2, BUN 26, creatinine 2.51, glucose 107, calcium 8.4. Total protein 5.4, albumin 2.2. PROBLEMS: 1. Oliguric acute renal failure. Patient has slightly improved urine output; however, she is still dialysis dependent. She was dialyzed on Friday and we will reevaluate her tomorrow for further dialysis need. 2. Hypervolemia and congestive heart failure. Patient has pleural effusions and hypervolemia due to oliguric acute renal failure. We were able to remove 1.5 liters of fluid yesterday with dialysis. 3. Hypokalemia. This is related to poor oral intake. Patient has already received calcium supplement 40 mEq today. Electrolytes shall be checked again tomorrow. 4. Sepsis. She is currently afebrile and remains on Zosyn and vancomycin. Random vancomycin level is 16.8 this morning. 5. Anemia. Her anemia did get worse. She has no obvious blood loss. Her CBC should be repeated and then consider transfusion, if needed. 6. Possible lymphoma. Patient has diagnosis of possible lymphoma. She is waiting for transfer to a tertiary care center for possible inpatient chemotherapy.
[2021-04-08 17:04] LABS: HEMATOCRIT 30.5 % (36.0-47.0); MEAN CORPUSCULAR HEMOGLOBIN 28.3 pg (27.0-33.0); MEAN CORPUSCULAR HGB CONC 33.1 g/dl (32.0-36.5); MEAN CORPUSCULAR VOLUME 85.4 fl (80.0-96.0); RED BLOOD COUNT 3.57 10^6/uL (4.00-5.40); WHITE BLOOD COUNT 18.8 10^3/uL (4.0-10.0)
[2021-04-08 17:06] LABS: HEMOGLOBIN 10.1 g/dl (12.0-15.5); PLATELET COUNT, AUTOMATED 60 10^3/uL (150-450)
[2021-04-08 17:14] LABS: FIBRINOGEN 236 MG/DL (221-452); INR 1.03; PARTIAL THROMBOPLASTIN TIME 29.2 SECONDS (24.2-38.5); PROTHROMBIN TIME 13.7 SECONDS (12.5-14.3)
[2021-04-08 18:00] LABS: D-DIMER QUANT > 4000 ng/ml (<500)
== END 2021-04-08 19:00 | disposition short-term general hospital (02) | DRG 871 ==
LOC: M ED 20:44 → M ICU 20:45 → UNDOADMIN 20:45 → M ICU 04-05 05:07 → M PCU 04-05 17:42 → M ICU 04-05 17:42
PROVIDERS: ADMIT Internal Medicine; ATTEND Family Medicine
PROC: 02HV33Z Insertion of Infusion Device into Superior Vena Cava, Percutaneous Approach (ICD-10-PCS; principal; 2021-04-05)
PROC: 30233N1 Transfusion of Nonautologous Red Blood Cells into Peripheral Vein, Percutaneous Approach (ICD-10-PCS; 2021-04-05)
PROC: 02HV33Z Insertion of Infusion Device into Superior Vena Cava, Percutaneous Approach (ICD-10-PCS; 2021-04-06)
PROC: 0JH63XZ Insertion of Tunneled Vascular Access Device into Chest Subcutaneous Tissue and Fascia, Percutaneous Approach (ICD-10-PCS; 2021-04-06)
PROC: 30233K1 Transfusion of Nonautologous Frozen Plasma into Peripheral Vein, Percutaneous Approach (ICD-10-PCS; 2021-04-08)
DX: A41.9 Sepsis, unspecified organism (principal); R65.21 Severe sepsis with septic shock; D65 Disseminated intravascular coagulation [defibrination syndrome]; I50.33 Acute on chronic diastolic (congestive) heart failure; E46 Unspecified protein-calorie malnutrition; N17.9 Acute kidney failure, unspecified; I13.0 Hypertensive heart and chronic kidney disease with heart failure and stage 1 through stage 4 chronic kidney disease, or unspecified chronic kidney disease; C83.50 Lymphoblastic (diffuse) lymphoma, unspecified site; Z68.1 Body mass index [BMI] 19.9 or less, adult; E87.2 Acidosis; N18.30 Chronic kidney disease, stage 3 unspecified; M81.0 Age-related osteoporosis without current pathological fracture; E78.5 Hyperlipidemia, unspecified; I27.20 Pulmonary hypertension, unspecified; Z79.899 Other long term (current) drug therapy; J84.10 Pulmonary fibrosis, unspecified; Z85.828 Personal history of other malignant neoplasm of skin; D50.9 Iron deficiency anemia, unspecified; E87.70 Fluid overload, unspecified; E87.6 Hypokalemia

== ENCOUNTER → 2021-05-01 | Outpatient (CLI) | payer MEDICARE ==
[~2021-05-01] MED LIST changes: +ATOR1TAB19 PO; +FIRV50SO PO; +METO1TAB87 PO; +PANT40TA29 PO; +PROAAER10 INH
--- NOTE | 2021-05-02 09:44 | ECHO ---
ECHOCARDIOGRAM DATE OF PROCEDURE: 05/01/2021 Age: 75 Gender: Female Height: 147 cm Weight: 36.3 kg REFERRING PHYSICIAN: Bette Shepard M.D. PATIENT LOCATION: Outpatient. REASON FOR THE TESTING: Fatigue, angioplasty, T-cell lymphoma, weakness. MEASUREMENTS: 2D Measurements: IVS 0.77 cm LV 3.7 cm LVPW 0.95 cm LA 2.2 cm Aorta 3.0 cm Doppler Measurements: Peak velocity across the LVOT 0.74 m/sec Mitral E 0.53 Mitral A 0.87 with a ratio of 0.6 Maximum tricuspid valve velocity 2.7 m/sec 2D COMMENTS: 1. Normal left ventricular size, wall thickness and normal global left ventricular systolic function. The estimated left ventricular systolic ejection fraction is 60-65%. 2. Normal left atrium. Normal right atrium and right ventricle. 3. The atrial septum appeared to be normal without evidence of defect or shunt. 4. Normal aortic root. 5. A small pericardial effusion was noted. No evidence of cardiac tamponade. 6. Pleural effusions noted. 7. Minimally calcified aortic valve with normal leaflet excursion. Mildly calcified mitral annulus with normal anterior mitral valve leaflet motion. Normal tricuspid valve and pulmonic valve. The proximal pulmonary artery branches were not well visualized. 8. The inferior vena cava was not well visualized. DOPPLER: It detects trace mitral regurgitation and mild tricuspid regurgitation as well as trace pulmonic regurgitation. The calculated pulmonary artery systolic pressure varies between 30-40 mmHg. Abnormal relaxation pattern was noted across the mitral valve leaflets as well as the mitral valve annulus consistent with features of grade 1 left ventricular diastolic dysfunction. IMPRESSION: 1. Normal global left ventricular systolic function. There are some features of grade 1 left ventricular diastolic dysfunction manifested by abnormal relaxation. 2. Aortic valve sclerosis with trace aortic regurgitation, but no aortic stenosis. 3. Mitral annulus calcification with trace mitral regurgitation. 4. Trace pulmonic regurgitation. 5. Mild tricuspid regurgitation with mild pulmonary hypertension. 6. A small pericardial effusion was noted. 7. Significant pleural effusion noted. I recommend to proceed with a chest x-ray for quantification. 8. Patient, while having the test, was complaining of increasing fatigue and weakness and this was discussed with the front end architect. It was recommended to the patient to go to the emergency room (ER) for further evaluation. 9. Global longitudinal strength (GLS) was calculated at -17.3%, normal
== END ==
LOC: M CARPUL 09:38
PROVIDERS: ATTEND Internal Medicine Medical Oncology
DX: C86.5 Angioimmunoblastic T-cell lymphoma (principal); I50.9 Heart failure, unspecified; I11.0 Hypertensive heart disease with heart failure

== ENCOUNTER → 2021-05-07 | Outpatient (CLI) | payer MEDICARE ==
--- NOTE | 2021-05-08 08:42 | REP ---
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 Treated with prednisone. COMPARISON: Comparison CT study of the chest abdomen and pelvis April 05, 2021 done without IV contrast.. TECHNIQUE: Fifty-four minutes following the intravenous injection of a 8.58 mCi dose of F-18 FDG, three-dimensional PET scintigraphy is acquired from the skull base to the proximal thighs. Triplanar noncontrast CT scanning is acquired through the same anatomic range for attenuation correction, and image registration with scan parameters optimized to minimize radiation exposure to the patient. PET scintigraphy and CT datasets were fused and displayed on a workstation with multiplanar and projection display capability. FINDINGS: At the skull base, there is some motion misregistration artifact. Head and neck soft tissues show foci of abnormal hypermetabolic uptake in the midline soft palate, right para tonsillar fossa, and in bilateral anterior and posterior cervical lymph nodes. Maximum standard uptake value in the head and neck region ranges up to 7.32 in bilateral supraclavicular arjun foci. There is bilateral hypermetabolic axillary lymphadenopathy, maximum SUV value 5.59 on the right and 8.80 on the left. There is hypermetabolic pretracheal mediastinal lymphadenopathy, 6.05. Subcarinal hypermetabolic adenopathy is seen, 7.11. There is epicardial lymph node focus of, 5.30 and small hilar foci are suspected. There is a small right pleural effusion. There is hypermetabolic retrocrural lymphadenopathy, 8.16. Hypermetabolic upper abdominal lymphadenopathy is seen, 7.80. The adrenals are slightly enlarged bilaterally and hypermetabolic. There is fairly bulky periaortic retroperitoneal hypermetabolic adenopathy, 8.32. There is hypermetabolic bilateral iliac adenopathy, 11.28 on the left and 9.05 on the right. There is bilateral external and internal iliac hypermetabolic arjun activity. Bilateral inguinal hypermetabolic adenopathy is observed, SUV 10.29 on the left and 8.92 on the right. The patient's large left adnexal cystic lesion does not show abnormal uptake and may be a ovarian cystic lesion. There is no abnormal hypermetabolic uptake within the liver. No focal increased uptake is seen in the spleen. Normal background liver uptake SUV value is 2.28. Vascular blood pool uptake, 1.43. The spleen is at the upper range of normal in size measuring 12.8 cm in greatest craniocaudal span. IMPRESSION: Extensive predominantly arjun hypermetabolic uptake in the head and neck, axillary, mediastinal, retrocrural, upper abdominal, retroperitoneal, iliac and inguinal lymph node regions bilaterally. Borderline spleen size. The large cystic lesion in the left pelvis is not hypermetabolic. Incidental findings include a right pleural effusion and mild abdominal ascites. <Electronically signed by Andrés Oswald > 05/08/21 [id number]
== END ==
LOC: M PLARAD 09:52
PROVIDERS: ATTEND Internal Medicine Medical Oncology
DX: C86.5 Angioimmunoblastic T-cell lymphoma (principal)
CPT/HCPCS: 78815; A9552

== ENCOUNTER → 2021-05-14 | Outpatient (CLI) | payer MEDICARE ==
[~2021-05-14] MED LIST changes: +BACTDSTA PO; +LIDOCAINE 1% MDV 20ML VIAL As Ordered ONE; +MIDAZOLAM INJ 2MG/2ML VIAL (J2250 PER 1MG) As Ordered ONE; +NS 1,000 ML IV SCH; +ONDA8TAB10 PO; +PRED20TA PO; +PROC10TA4 PO; +ceFAZolin 2 GM/D5W 50 ML IV BAG (J0690 PER 500MG) As Ordered ONE; +ceFAZolin SOD 2 GM in IV 1 EA IV ONE; +diphenhydrAMINE 50MG/ML VIAL (J1200) As Ordered ONE; +fentaNYL 100 MCG/2 ML INJECTION (J3010) As Ordered ONE
--- NOTE | 2021-05-14 14:26 | IRHP ---
[facility] IR Pre-Procedure H & P General Date of Service: May 14, 2021 Procedure: Same Day Surgery Interval History and Physical I have seen the patient and reviewed last H & P performed within 30 days. There is no significant interval change. History of Present Illness Chief Complaint The patient is a 75-year-old female admitted with a reason for visit of Lymphoma. PRE-PROCEDURE DIAGNOSIS:lymphoma HEART: normal rate. LUNGS: normal breathing at rest. ASA Classification ASA Classification: III-Severe systemic dis. Mallampati Score: II NPO: Yes Problems with prior sedation: No Obstructive Sleep Apnea: No Plan moderate sedation Allergies Coded Allergies: No Known Allergies (Unverified , 02/08/21) Home Medications Scheduled Amlodipine Besylate (Amlodipine Besylate), 10 MG PO DAILY, (Reported) Cholecalciferol (Vitamin D3) (Vitamin D3), 1,000 UNITS PO DAILY, (Reported) Famotidine (Famotidine), 20 MG PO DAILY, (Reported) Ferrous Gluconate (Ferrous Gluconate), 324 MG PO QPM, (Reported) Ibandronate Sodium (Ibandronate Sodium), 150 MG PO QMONTH, (Reported) Pantoprazole Sodium (Pantoprazole Sodium), 40 MG PO DAILY Prednisone (Prednisone), 1 TAB PO BID, (Reported) Sulfamethoxazole/Trimethoprim (Sulfamethoxazole-Tmp Ds Tablet), 1 TAB PO 3XW, (Reported) Scheduled PRN Albuterol Sulfate (Proair Hfa), 2 PUFF INH Q4H PRN for SHORTNESS OF BREATH, (Reported) Discontinued Medications Vancomycin HCl (Firvanq), 125 MG PO Q6H Discontinued Reason: Pt states not taking [Patient Comment], (Reported) Discontinued Reason: Pt states not taking VS, I&O, 24H, Fishbone Vital Signs/I&O Vital Signs Date Time Temp Pulse Resp B/P (MAP) Pulse Ox O2 Delivery O2 Flow Rate FiO2 05/14/21 13:55 64 16 100 Nasal Cannula 05/14/21 12:11 99.8 ROSA SKELTON MD May 14, 2021 14:26
--- NOTE | 2021-05-14 16:06 | IRPON ---
IR Postoperative Note Date Of Procedure: May 14, 2021 Time Of Procedure: 16:05 IR Postoperative Note IR Ultrasound and fluoroscopy guided port placement IR Ultrasound of the neck. IR Moderate sedation. Clinical indication: Lymphoma. Physician: Dr. Ann. Procedure: The patient was advised of the benefits, risks, and alternatives of the procedure and informed consent was obtained. A time-out was performed with verification of the patient's name, MRN, site of procedure and type of procedure to be performed. The patient was positioned in the supine position on the angiographic table. The site was prepped and draped in the usual sterile fashion. Moderate sedation was performed by the physician including the presence of an independent trained RN who assisted and monitored the patient's level of consciousness and physiologic status. Following the administration of fentanyl and Versed , the physician spent 45 minutes of continuous face to face time with the patient. Ultrasound of the neck reveals a patent and compressible right internal jugular vein. A career technology teacher radiograph reveals right pleural effusion. The neck and anterior chest wall were anesthetized with lidocaine. The right internal jugular vein was accessed using a microintroducer needle under ultrasound guidance, via a lateral approach. An 018 wire was advanced into the superior vena cava, the needle was removed and a microsheath was placed. An Amplatz wire was then passed into the inferior vena cava. An incision at the internal jugular vein access site and anterior chest wall were made using a scalpel. An incision was made at the anterior chest wall. A small pocket was created using a combination of blunt and sharp dissection. A tunneling device was then used to pass the catheter from the pocket to the neck puncture site. An 8- Romansh [email or web address] Smart power port was then positioned in the pocket. The catheter was then measured and cut. The introducer sheath was exchanged for a peel-away sheath. The catheter was passed through the peel-away sheath into the internal jugular vein and the peel-away sheath was removed. The port tip was positioned at the cavoatrial junction. The port was then accessed with a Bucio needle. The port flushes and aspirates well. The puncture site in the neck was closed. The chest wall incision was then closed with 2-0 Vicryl and 4-0 Monocryl. Glue and Steri- Strips were applied. A sterile dressing was then applied. The patient tolerated the procedure well and was returned to the PRU in stable condition. Estimated blood loss: <5 ml. Complications: None. Conclusion: 1. Successful placement of an 8-Romansh Angio [employer] Smart power port via the right internal jugular vein. The port is ready for immediate use. 2. Patient to follow up in IR clinic in 2 weeks. Thank you for this referral. ROSA ANN MD May 14, 2021 16:06
== END ==
LOC: M IRPRO 11:49
PROVIDERS: ATTEND Internal Medicine Medical Oncology
DX: C86.5 Angioimmunoblastic T-cell lymphoma (principal)
CPT/HCPCS: 36561; 99152; 99153; C1769; C1788; C1894; J0690; J1200; J1642; J1644; J2250; J3010

== ENCOUNTER → 2021-05-24 | Outpatient (CLI) | payer MEDICARE ==
[~2021-05-24] MED LIST changes: -LIDOCAINE 1% MDV 20ML VIAL As Ordered ONE; -MIDAZOLAM INJ 2MG/2ML VIAL (J2250 PER 1MG) As Ordered ONE; -NS 1,000 ML IV SCH; -ceFAZolin 2 GM/D5W 50 ML IV BAG (J0690 PER 500MG) As Ordered ONE; -ceFAZolin SOD 2 GM in IV 1 EA IV ONE; -diphenhydrAMINE 50MG/ML VIAL (J1200) As Ordered ONE; -fentaNYL 100 MCG/2 ML INJECTION (J3010) As Ordered ONE
--- NOTE | 2021-05-24 15:23 | REP ---
INDICATION: PLEURAL EFFUSION ON ECHOCARDIOGRAM. COMPARISON: Comparison chest x-ray April 07, 2021. Comparison is made with May 07, 2021. Images from PET-CT TECHNIQUE: Two views.. FINDINGS: A right-sided [id number]-[id number] catheter is noted in place with its tip in the expected location of the superior vena cava. There is blunting of the lateral and posterior pleural angles on both sides consistent with bilateral pleural effusions. This was larger on the right at the time of the PET-CT from May 07, 2021. It appears slightly larger today on the right as well. There is discoid atelectasis in the lung bases. Lung dinh are otherwise clear. Heart does not appear to be enlarged overall. IMPRESSION: Bilateral small pleural effusions, right larger than left. Right-sided [id number]. Bibasilar platelike atelectasis. Pleural effusions are similar to the prior chest x-ray. <Electronically signed by Andrés Oswald > 05/24/21 [id number]
== END ==
LOC: M RAD 15:02
PROVIDERS: ATTEND Internal Medicine Medical Oncology
DX: J90 Pleural effusion, not elsewhere classified (principal)

== ENCOUNTER 2021-06-11 18:54 | Emergency (ER) | payer MEDICARE ==
[~2021-06-11] VITALS: Ht 152.4 cm; Wt 36.4 kg
[2021-06-11] MEDS ORDERED: CARV6.25 (19:36)
[2021-06-11] MEDS ORDERED: ALLO100T PO (19:36)
[2021-06-11] MEDS ORDERED: NS 500 ML IV ONE (21:25)
[2021-06-11 21:47] LABS: HEMATOCRIT 25.3 % (36.0-47.0); HEMOGLOBIN 8.3 g/dl (12.0-15.5); MEAN CORPUSCULAR HEMOGLOBIN 26.9 pg (27.0-33.0); MEAN CORPUSCULAR HGB CONC 32.8 g/dl (32.0-36.5); MEAN CORPUSCULAR VOLUME 82.1 fl (80.0-96.0); PLATELET COUNT, AUTOMATED 127 10^3/uL (150-450); RED BLOOD COUNT 3.08 10^6/uL (4.00-5.40); WHITE BLOOD COUNT 2.6 10^3/uL (4.0-10.0)
[2021-06-11 21:58] LABS: INR 1.09; PARTIAL THROMBOPLASTIN TIME 34.1 SECONDS (25.9-37.0); PROTHROMBIN TIME 14.5 SECONDS (12.7-14.5)
--- NOTE | 2021-06-11 22:07 | REPVR ---
PROCEDURE INFORMATION: Exam: CT Head Without Contrast Exam date and time: 06/11/2021 9:54 PM Age: 75 years old Clinical indication: Weakness, extremity TECHNIQUE: Imaging protocol: Computed tomography of the head without contrast. Radiation optimization: All CT scans at this facility use at least one of these dose optimization techniques: automated exposure control; mA and/or kV adjustment per patient size (includes targeted exams where dose is matched to clinical indication); or iterative reconstruction. Other technique: STROKE PROTOCOL was implemented. COMPARISON: CT Head without contrast 02/08/2021 10:45 AM FINDINGS: Brain: There is a triangular area of increased attenuation in the posterior right cerebellum outlining the sulci suggesting parenchymal hemorrhage and is new since 02/08/2021. Small focus of wood matter high attenuation which is new since the prior study which may reflect a small focus of parenchymal hemorrhage in the high paramedian left parietal lobe. There is mild patchy low attenuation of deep white matter with areas of old deep white matter infarct or gliosis. A left lenticular nucleus calcification is unchanged. Cerebral ventricles: No ventriculomegaly. Paranasal sinuses: Visualized sinuses are unremarkable. No fluid levels. Mastoid air cells: Visualized mastoid air cells are well aerated. Bones/joints: Unremarkable. No acute fracture. IMPRESSION: 1. 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 2. New area of parenchymal high attenuation in the posterior right cerebellum since 02/08/2021 with a somewhat triangular distribution suggesting an area of interval hemorrhagic infarct. 3. Minimal focus of wood matter high attenuation in the high left parietal lobe which is also new since the prior study suggesting minimal focus of wood matter hemorrhage. 4. Otherwise negative noncontrast head CT. Jenelle Stroke Program Early CT Score (ASPECTS) = 10/10. Electronically signed by: Bdu Galindo On 06/11/2021 22:07:09 PM
--- NOTE | 2021-06-11 22:09 | REPVR ---
PROCEDURE INFORMATION: Exam: XR Chest Exam date and time: 06/11/2021 9:31 PM Age: 75 years old Clinical indication: Other: Weakness TECHNIQUE: Imaging protocol: XR of the chest. Views: 1 view. COMPARISON: CR Chest, 2 view PA, Lat 05/24/2021 3:14 PM FINDINGS: Tubes, catheters and devices: A right Port-A-Cath is unchanged. Lungs: Slightly decreased right base infiltrate or atelectasis. The left lung is unchanged. Pleural spaces: Mild right pleural effusion is similar. Left pleural effusion is decreased with question of trace residual. Heart/Mediastinum: The heart and mediastinum are unchanged. Bones/joints: Unremarkable. IMPRESSION: 1. Decreased left pleural effusion since 05/24/2021. Trace residual remains. 2. Slightly decreased right base infiltrate or atelectasis since the prior study. 3. Otherwise stable chest. Electronically signed by: Bud Galindo On 06/11/2021 22:08:57 PM
[2021-06-11 22:10] LABS: ATYPICAL LYMPH 1 % (0-5); LYMPHOCYTES 9 % (16-44); MONOCYTES 4 % (0-5); NEUTROPHILS 83 % (28-66); PLATELET ESTIMATE DECREASED (NORMAL)
[2021-06-11 22:29] LABS: ALBUMIN 2.4 GM/DL (3.2-5.2); ALT/SGPT 10 U/L (12-78); BILIRUBIN,DIRECT 0.2 MG/DL (0.0-0.2); BILIRUBIN,TOTAL 0.6 MG/DL (0.2-1.0); BLOOD UREA NITROGEN 71 MG/DL (7-18); CALCIUM LEVEL 8.8 MG/DL (8.8-10.2); CARBON DIOXIDE LEVEL 20 MEQ/L (21-32); CHLORIDE LEVEL 103 MEQ/L (98-107); CK-MB VALUE MASS < 1.0 NG/ML (<3.6); CPK CREATINE PHOSPHOKINASE 25 U/L (26-192); GLOMERULAR FILTRATION RATE 17.5 (>39); GLUCOSE, FASTING 87 MG/DL (70-100); LIPASE 91 U/L (73-393); POTASSIUM SERUM 4.1 MEQ/L (3.5-5.1); SODIUM LEVEL 136 MEQ/L (136-145); TOTAL PROTEIN 5.5 GM/DL (6.4-8.2); TROPONIN I 0.05 NG/ML (< 0.10)
[2021-06-11 22:31] LABS: RSV AMPLIFICATION NEGATIVE (NEGATIVE)
--- NOTE | 2021-06-11 22:51 | REPVR ---
PROCEDURE INFORMATION: Exam: US Duplex Lower Extremity Veins, Bilateral Exam date and time: 06/11/2021 10:41 PM Age: 75 years old Clinical indication: Edema, localized; Lower extremity, bilateral; Additional info: B/l edema, weakness, R/O dvt TECHNIQUE: Imaging protocol: Real-time duplex ultrasound of the extremities with 2-D wood scale, color Doppler flow and spectral waveform analysis with image documentation. Complete exam focused on the bilateral lower extremity veins. COMPARISON: Pelvis, limited US 04/05/2021 7:45 PM FINDINGS: Right deep veins: Unremarkable. The common femoral, femoral, proximal profunda femoral and popliteal veins are patent without thrombus. Normal Doppler waveforms. Normal compressibility and/or augmentation response. Right superficial veins: Saphenofemoral junction is patent without thrombus. Left deep veins: Unremarkable. The common femoral, femoral, proximal profunda femoral and popliteal veins are patent without thrombus. Normal Doppler waveforms. Normal compressibility and/or augmentation response. Left superficial veins: Saphenofemoral junction is patent without thrombus. Lymph nodes: Bilateral slightly prominent inguinal nodes are noted. Soft tissues: Subcutaneous edema of the lower extremities. IMPRESSION: 1. Slightly prominent bilateral inguinal lymph nodes. 2. Subcutaneous edema of the lower extremities. 3. Negative bilateral lower extremity venous duplex exam without evidence of deep venous thrombosis. Electronically signed by: Bud Galindo On 06/11/2021 22:51:00 PM
[2021-06-12 00:43] VITALS: BP 132/53
--- NOTE | 2021-06-13 18:47 | ECGEPIP ---
[facility] - ED Test Date: 2021-06-11 Pat Name: RAKESH SALOMON Department: Room: - Gender: Female Folder Machine: [id number] : [id number] Requested By: TRACY Duran Order Number: [id number] Reading MD: Cassandra Marsh Measurements Intervals Colbert Rate: 98 P: 47 WA: 130 QRS: 82 QRSD: 70 T: 60 QT: 308 QTc: 393 Interpretive Statements Normal sinus rhythm NSTTW abnormalities low voltage limb similar 04/06/21 Electronically Signed on 06-13-2021 18:47:52 EDT by Cassandra Marsh
== END 2021-06-12 00:46 | disposition short-term general hospital (02) ==
LOC: M ED 18:54
DX: I61.9 Nontraumatic intracerebral hemorrhage, unspecified (principal); I11.0 Hypertensive heart disease with heart failure; I50.9 Heart failure, unspecified; N18.30 Chronic kidney disease, stage 3 unspecified; C86.5 Angioimmunoblastic T-cell lymphoma; E78.5 Hyperlipidemia, unspecified; M81.0 Age-related osteoporosis without current pathological fracture; Z79.899 Other long term (current) drug therapy